=== PATIENT | male | born 1955 | race Caucasian/White ===

== ENCOUNTER 2024-06-17 12:06 | Outpatient (AMB) | payer MEDICARE, SELFPAY ==
--- NOTE | 2024-06-17 12:12 | MHC.PC.OV ---
Vital Signs 06/17/24 12:18 Height 5 ft 7 in Weight 189 lb 8 oz BMI 29.7 BP 120/66 Blood Pressure Location Rt brachial Position Sitting Respiration 16 Pulse 70 Pulse Source Pulse Oximeter Temp 97.9 F Temp Source Oral Pulse Oximetry (%) 97 Oxygen Delivery Method Room Air Intake Visit Reasons: OVERDUE ANNUAL PE- see comments Intake Note: annual exam Allergies No Known Allergies Allergy (Verified 06/17/24 12:13) Medication List - Last Reconciled 06/17/24 by Don Brown MD baclofen 10 mg PO BEDTIME 30 days docusate sodium 200 mg (2 x 100 mg) PO BID 30 days melatonin 3 - 6 mg (1 - 2 x 3 mg) PO BEDTIME PRN 90 days oxycodone 10 mg PO TID PRN pregabalin 150 mg PO BID sennosides (senna) 17.2 mg PO DAILY Tobacco use date assessed: 06/17/24 Fall risk assessment: 1 Fall in past year Last assessed Fall Risk: 06/17/24 Dental Screening Dental Screen Date: 06/17/24 Did you have a dental visit in the last 12 months?: Yes Did you have a dental problem in the last 6 months where you did not have access to dental care?: Yes Was dental information given to patient?: Patient has dentist HPI OVERDUE ANNUAL PE- see comments HPI Details 68 y/o male presents for a CPE with f/u labs and health maintenance. No recent labs to review. Pt notes he had been diagnosed with R eye retinal hemorrhage. States he has never had a colonoscopy. Notes some constipation. HPI Comments History of Present Illness Details Documentation assistance for Don Brown MD, was provided by Otto Matta,? Block Sorter on 06/17/2024 at 12:28 PM EST. I, Dr. Brown, have read, observed, and verified documentation. FORMERLY [facility], [facility] Medical History (Updated 06/17/24 @ 12:35 by Otto Matta) Failed spinal cord stimulator Social History (Updated 06/17/24 @ 12:17 by Abbie Payan [facility]) Housing: House Patient Tobacco Use Status: Never used Tobacco e-Cigarette/Vaping Use: Never Used Second Hand Smoke Exposure: No service: No Current occupational status: retired Current occupational exposures/hazards: No Cognitive needs: No Hearing needs: No Vision needs: No Questionnaire PHQ-9 Over the last 2 weeks, how often have you been bothered by any of the following problems? 1. Little interest or pleasure in doing things: more than half the days 2. Feeling down, depressed, or hopeless: several days 3. Trouble falling or staying asleep, or sleeping too much: more than half the days 4. Feeling tired or having little energy: more than half the days 5. Poor appetite or overeating: several days 6. Feeling bad about yourself - or that you are a failure or have let yourself or your family down: not at all 7. Trouble concentrating on things, such as reading the newspaper or watching television: not at all 8. Moving or speaking so slowly that other people could have noticed. Or the opposite - being so fidgety or restless that you have been moving around a lot more than usual: not at all 9. Thoughts that you would be better off or of hurting yourself in some way: not at all Total score: 8 Depression Screening Interpretation: Positive Depression Screening Done: Yes 45369 - PHQ-9 Billing: Yes Source: Developed by Drs. Juan Jenkins, Emely Smart, Tim Da Silva and colleagues, with an educational sheree from [employer]. Thrive Questionnaire Date Thrive assessed: 06/17/24 I am a: Patient What is your living situation today?: I have a steady place to live Within the past 12 months, did the food you bought not last and you didn't have the money to get more?: Never true Within the past 12 months, did you worry whether your food would run out before you got money to buy more?: Never true Do you have trouble paying for medicines?: No Do you have trouble getting transportation to medical appointments?: Yes Do you have trouble paying your heating and electricity bill?: No Do you have trouble taking care of your child, family member or friend?: No Do you have trouble with day-to-day activities such as bathing, preparing meals, shopping, managing finances, etc.?: Yes Are you currently unemployed and looking for a job?: No Are you interested in more education?: No Please select the resources that you would like help with: None Currently or been in a relationship where the following occur: No concerns reported THRIVE Score: 1 AUDIT C Alcohol Use Questionnaire (AUDIT-C) 1. How often do you have a drink containing alcohol?: Monthly or less 2. How many drinks containing alcohol do you have on a typical day when you are drinking?: 1 or 2 3. How often do you have six or more drinks on one occasion?: Never Total Score: 1 TAWANA-7 AMB Questionnaire TAWANA-7 Date TAWANA - 7 assessed: 06/17/24 Feeling nervous, anxious, or on edge: 0 = Not at all Not being able to stop or control worryin = Not at all Worrying too much about different things: 1 = Several days Trouble relaxin = Not at all Being so restless that it is hard to sit still: 0 = Not at all Becoming easily annoyed or irritable: 0 = Not at all Feeling afraid as if something awful might happen: 1 = Several days Total TAWANA-7 score (0-4 normal; 5-9 mild; 10-14 moderate; 15-21 severe): 2 Source: Developed by Drs. Juan Jenkins, Emely Smart, Tim Da Silva and colleagues, with an educational sheree from [employer]. TAWANA-7 Assessment Billing TAWANA-7 Assessment Tool: TAWANA-7 Assessment 79041 Review of Systems Const Denies chills, Denies fatigue, Denies fever(s), Denies headache(s) and Denies weakness Eyes Denies change in vision ENT Denies dizziness, Denies headache(s), Denies hearing loss, Denies nasal congestion, Denies sinus pain, Denies sinus pressure and Denies sore throat Card Denies chest pain, Denies lightheadedness, Denies dyspnea and Denies other (palpitations) Resp Denies cough, Denies dyspnea and Denies wheezing GI Denies abdominal pain, Denies melena, Denies hematochezia, Denies change in bowel habits, Reports constipation, Denies dyspepsia and Denies nausea Denies hematuria and Denies dysuria Musc Denies abnormal gait, Denies myalgias, Denies arthralgias, Denies numbness and Denies tingling Skin/Breast Denies rash, Denies unusual bruising and Denies wounds Neuro Denies abnormal gait, Denies dizziness, Denies headache(s), Denies memory loss, Denies numbness, Denies Sensory deficit (Neuro), Denies tingling and Denies weakness Psych Denies anxiety, Denies depression and Denies memory loss Endo Denies cold intolerance, Denies fatigue, Denies heat intolerance, Denies polydipsia and Denies polyuria Eddie/Lymph Denies easy bleeding and Denies easy bruising Aller/Immun Denies wheezing Physical exam (Primary Care) Vital Signs: Last Vital Signs Temp 97.9 F 06/17/24 12:18 Pulse 70 06/17/24 12:18 Resp 16 06/17/24 12:18 BP 120/66 06/17/24 12:18 Pulse Ox 97 06/17/24 12:18 Oxygen Delivery Method Room Air 06/17/24 12:18 BMI result Body Mass Index 29.7 Tobacco/Smoking Status: Tobacco use Status Tobacco use date assessed 11/23/21 06/17/24 12:15 Patient Tobacco Use Status Never used Tobacco 06/17/24 12:17 e-Cigarette/Vaping Use Never Used 06/17/24 12:17 PHQ-9: PHQ-9 Score PHQ-9: Total score 8 06/17/24 12:15 Depression Screening Interpretation: Positive Thrive Assessment: Date of Thrive Assessment Date Thrive assessed 08/14/22 06/17/24 12:15 Currently or been in a relationship where the following occur: No concerns reported Const General: no acute distress, well developed, alert and awake Nutritional Appearance: well nourished Orientation/consciousness: patient oriented x3 HENMT Head: Yes normocephalic and Yes atraumatic Ears: hearing grossly normal bilaterally and TM's normal bilaterally General nose exam: Normal external nose present and Normal nares present Mouth: Normal oral and palatal mucosa present and moist mucous membranes Teeth and gingiva: dentition normal Throat: Yes posterior oropharynx normal Eyes General: appearance normal, both eyes and all related structures Pupils: Equal, round and reactive pupils present and Pupil accommodation reflex normal EOM: EOMs intact bilaterally Neck Neck: Yes normal visual inspection, Yes no lymphadenopathy and Yes trachea midline Thyroid: Thyroid normal Carotids: no bruits Lymphatic: no lymphadenopathy noted Chest Chest palpation & inspection: normal inspection of the chest Resp Effort & Inspection: normal respiratory effort Auscultation: clear to auscultation bilaterally Cardio Rate: regular rate Rhythm: regular rhythm Heart sounds: S1 normal heart sound present, S2 normal heart sound present, no gallops, no murmurs and no rubs Bruits: no abdominal aortic bruits and no carotid bruits GI Palpation (GI): No Abdominal aortic bruit present, Soft to palpation, nontender, No hepatosplenomegaly present and No Rebound tenderness present Auscultation: normal bowel sounds General: Yes no CVA tenderness Back/Spine/Pelvis Back: no CVA tenderness Cervical Spine: cervical ROM normal and No Cervical spine tenderness Thoracic/Lumbar Spine: thoraco-lumbar ROM normal, No pain with thoraco-lumbar ROM, No thoracic spinal tenderness and No lumbar spinal tenderness Skin Lesions: no lesions Rashes: no rashes Trauma: no lacerations or abrasions Wounds: no wounds Nails: normal Neuro General: patient oriented x3 Cranial nerves: Yes Equal, round and reactive pupils present Cognition (Neuro): normal cognition Gait exam (Neuro): Normal gait present Motor exam (neuro): 5/5 motor strength present throughout Sensory Exam: No Sensory deficit (Neuro) Deep tendon reflexes (DTR's): Right patellar reflex intensity grade: 2+ and Left patellar reflex intensity grade: 2+ Extrem General: Yes normal to inspection and No edema Psych Appearance: grossly normal Affect: normal affect Attitude: cooperative Thought process: Normal thought process present Coding Level of Care Code Est Pt Prev Care >65y(55312) Diagnoses Adult general medical exam Z00.00 Retinal hemorrhage H35.60 Constipation K59.00 Night sweats R61 Back pain M54.9 Screening for colon cancer Z12.11 Screening for prostate cancer Z12.5 Additional Codes TAWANA-7 Assessment Billing - TAWANA-7 Assessment Tool: TAWANA-7 Assessment 07385 ([id number]) PHQ-9 - 88558 - PHQ-9 Billing: Yes ([id number]) Assessment & Plan Assessment & Plan (1) Adult general medical exam: Code(s): Z00.00 - Encounter for general adult medical examination without abnormal findings Category: Medical Plan: 68-year-old?male?presents?for?complete?physical?exam (2) Retinal hemorrhage: Code(s): H35.60 - Retinal hemorrhage, unspecified eye Category: Medical Plan: 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 Blood?pressure?is?fine.??Maintain?good?blood?pressure Check?carotid?duplex Check?lipids (3) Constipation: Code(s): K59.00 - Constipation, unspecified Category: Medical Plan: Hydrate?well Use?senna?as?needed (4) Night sweats: Code(s): R61 - Generalized hyperhidrosis Category: Medical Plan: Ongoing?night?sweats Check?labs?including?CBC,?T?spot?thyroid?hormone?levels.??Check?chest?x-ray (5) Back pain: Code(s): M54.9 - Dorsalgia, unspecified Category: Medical Plan: Follow-up?with?[facility]?as?recommended (6) Screening for colon cancer: Code(s): Z12.11 - Encounter for screening for malignant neoplasm of colon Category: Medical Plan: Patient?says?he?has?never?had?colonoscopy.??Referred?to?Gastroenterology (7) Screening for prostate cancer: Code(s): Z12.5 - Encounter for screening for malignant neoplasm of prostate Category: Medical Plan: Check?PSA Orders: Orders Complete Blood Count Auto Diff Today Z00.00 - Encounter for general adult medical examination without abnormal findings Microalbumin, Random (w Creat) Today I10 - Essential (primary) hypertension Prostate Specific Antigen Scr Today Z12.5 - Encounter for screening for malignant neoplasm of prostate UA and rflx microscopic Today Z00.00 - Encounter for general adult medical examination without abnormal findings XR chest 2V Today R61 - Generalized hyperhidrosis T Spot TB Today R61 - Generalized hyperhidrosis Comprehensive [place]. Panel Fast Today Z00.00 - Encounter for general adult medical examination without abnormal findings Lipid Panel Today Z00.00 - Encounter for general adult medical examination without abnormal findings TSH reflex Free T4 Today Z00.00 - Encounter for general adult medical examination without abnormal findings US carotid duplex BI Today H35.60 - Retinal hemorrhage, unspecified eye HIV Ab/Ag Today R61 - Generalized hyperhidrosis, Z11.3 - Encounter for screening for infections with a predominantly sexual mode of transmission Hepatitis B,C Profile Today R61 - Generalized hyperhidrosis, Z11.3 - Encounter for screening for infections with a predominantly sexual mode of transmission Lyme IgG/IgM w/reflex to WB Today M79.2 - Neuralgia and neuritis, unspecified Referrals Gastroenterology Referral Z12.11 - Encounter for screening for malignant neoplasm of colon Medications: Refilled melatonin 3 - 6 mg (1 - 2 x 3 mg) PO BEDTIME 90 days PRN 180 tabs 1RF insomnia
[2024-06-17 12:18] VITALS: BP 120/66; PULSE 70; RESP 16; TEMP 36.6; O2SAT 97; BMI 29.7
== END 2024-06-17 12:42 | disposition home or self-care (01) ==
PROVIDERS: PCP Family Medicine; Visit Provider Family Medicine
DX: Z00.00 Encounter for general adult medical examination without abnormal findings (principal); H35.60 Retinal hemorrhage, unspecified eye; K59.00 Constipation, unspecified; R61 Generalized hyperhidrosis; M54.9 Dorsalgia, unspecified; Z12.11 Encounter for screening for malignant neoplasm of colon; Z12.5 Encounter for screening for malignant neoplasm of prostate

== ENCOUNTER → 2024-06-17 12:06 | Outpatient (BNVA) | payer MEDICARE, SELFPAY | PROVIDERS: PCP Family Medicine; Visit Provider Family Medicine | DX: Z00.00 Encounter for general adult medical examination without abnormal findings (principal); H35.00 Unspecified background retinopathy; K59.00 Constipation, unspecified; R61 Generalized hyperhidrosis; M54.9 Dorsalgia, unspecified | CPT/HCPCS: 96127; 99397 ==

== ENCOUNTER 2024-07-03 14:53 | Outpatient (REF) | payer MEDICARE, SELFPAY ==
--- NOTE | ~2024-07-03 | US_ITS ---
EXAMINATION: US EXTRACRANIAL CAROTID DUPLEX, BILATERAL CLINICAL INFORMATION: Retinal hemorrhage. COMPARISON: None available. TECHNIQUE: Real-time ultrasound and Doppler techniques (integrating B-mode 2-D vascular images, Doppler spectral analysis and color-flow Doppler imaging) were utilized to interrogate the extracranial carotid arteries, the vertebral arteries and proximal subclavian arteries bilaterally. The degree of stenosis is determined by criteria similar to NASCET. FINDINGS: Right Side: 1. There is moderate atherosclerotic plaque seen in the bifurcation/proximal ICA region. The ICAs appears to be of small caliber and is occluded as described below 2. The common carotid artery PSV proximally is 91 cm/s and distally 72 cm/s. 3. The proximal, mid and distal internal carotid artery are occluded. 4. The proximal external carotid artery PSV is 80 cm/s. 5. The vertebral artery shows antegrade flow. 6. The subclavian artery waveforms are normal. Left Side: 1. There is mild atherosclerotic plaque seen in the bifurcation/proximal ICA region. 2. The common carotid artery PSV proximally is 108 cm/s and distally 79 cm/s. 3. The proximal internal carotid artery velocities are 77 cm/s systolic and 27 cm/s diastolic. 4. The proximal external carotid artery PSV is 100 cm/s. 5. The vertebral artery shows antegrade flow. 6. The subclavian artery waveforms are normal. US/US carotid duplex BI IMPRESSION: 1. RIGHT: The right internal carotid artery is occluded. 2. LEFT: Minimal, non-hemodynamically significant stenosis of the proximal left internal carotid artery corresponding to a 0-49% stenosis by velocity criteria. The patient's referring clinician, Don Brown, was contacted immediately after the exam who was going to contact the patient to go directly to the emergency room. Electronically signed by: Vimal Vallejo MD 07/09/2024 09:13 AM [facility] [place]
== END 2024-07-03 14:54 | disposition home or self-care (01) ==
LOC: HO.US 14:53
PROVIDERS: PCP Family Medicine; Visit Provider Family Medicine
DX: H35.61 Retinal hemorrhage, right eye (principal); I65.21 Occlusion and stenosis of right carotid artery
CPT/HCPCS: 93880

== ENCOUNTER 2024-07-03 16:15 | Emergency (ER) | payer MEDICARE, SELFPAY ==
--- NOTE | ~2024-07-03 | CT_ITS ---
EXAMINATION: CT ANGIOGRAM HEAD CT ANGIOGRAM NECK CLINICAL INFORMATION: Right ICA occlusion.] No hemorrhage. COMPARISON: Carotid ultrasound from 07/03/2024. TECHNIQUE: Initial noncontrast pattern worker imaging of the head and neck was performed. Noncontrast head CT was also performed. Test bolus sequences followed by intravenous administration 70 mL of Omnipaque 350. Helical imaging was performed in the axial plane from the aortic arch to the skull vertex. Delayed postcontrast imaging of the head was also performed. The data was processed at the neurodiagnostic technologist's workstation for generation of MIP sequences. Angled MIPs and volume rendered reformatted images were also generated at an offline 3D workstation. Stenoses are assessed in accordance with NASCET criteria unless otherwise indicated. This CT examination was performed using dose optimization techniques as appropriate, variously including the following: *Automated exposure control. *Adjustment of mA and/or kV according to patient size (this includes techniques or standardized protocols for targeted exams where dose is matched to indication/reason for exam; i.e. extremities or head). *Use of iterative reconstruction technique. DLP: 2167 mGy-cm FINDINGS: CT Head: There is no evidence of acute intracranial hemorrhage or edematous territorial infarction. Granados-white matter differentiation is preserved. A few foci of hypoattenuation in the periventricular and deep white matter are consistent with mild microangiopathy. The ventricles are normal in morphology and size. No evidence for obstructive hydrocephalus. No abnormal mass effect or midline shift. No extra-axial fluid collections. No pathologic intra-axial enhancement or regional oligemia. No acute soft tissue or osseous abnormalities. Mild mucosal thickening of the paranasal sinuses. The mastoid air cells and middle ear cavities are clear. Multifocal odontogenic enamel erosions and periapical lucencies. CT Neck: The thyroid gland and remaining cervical soft tissues are within normal limits. Congenital fusion of C2-C3. Straightening of the normal cervical lordosis. Instrumented posterior fusion of C6-T1 with bilateral lateral mass fusion of C6 and C7 and intrapedicular screws at T1. Laminectomy changes at C7-T1. Advanced degenerative disc disease at C4-C5 and from C6-T1. Facet and uncovertebral joint arthropathy leads to osseous encroachment on the neural foramina from C3-T1. CT Upper Chest: The visualized lung apices and upper mediastinum are within normal limits. Neck CTA: Aortic Arch: Normal contour and caliber with mild calcific atherosclerotic disease. Classic 3 vessel branching pattern of the aortic arch. Great Vessel Origins: No significant stenosis of the branch origins. Right Common Carotid Artery: No focal stenosis or occlusion. Cervical Right Internal Carotid Artery: Mixed fibrofatty and calcific atherosclerotic disease of the carotid bulb and proximal internal carotid artery subtotal occlusion at the origin. Faint threadlike opacification of the cervical, cavernous, and mastoid segments of the ICA. Left Common Carotid Artery: No focal stenosis or occlusion. Cervical Left Internal Carotid Artery: Mild calcific atherosclerotic disease of the carotid bulb and proximal internal carotid artery without flow-limiting stenosis. Cervical Right Vertebral Artery: Co-dominant. No focal stenosis or occlusion. Cervical Left Vertebral Artery: Co-dominant. No focal stenosis or occlusion. Brain CTA: Intracranial Internal Carotid Arteries: Calcific atherosclerotic disease of the intracranial internal carotid arteries. Reconstitution of the cavernous segment of the right ICA. There is moderate atherosclerotic stenosis of the paraophthalmic and supraclinoid segments of the right ICA. No additional occlusion or flow-limiting stenosis. Right Anterior Cerebral Artery: The A1 segment is mildly diminutive. Normal opacification of the distal GUILLERMO segments. Left Anterior Cerebral Artery: Normal A1 segment. Normal opacification of the distal GUILLERMO segments. Anterior Communicating Artery: Normal. Right Middle Cerebral Artery: Normal M1 segment of the MCA without focal stenosis or occlusion. Normal arborization of the distal segments. Left Middle Cerebral Artery: Normal M1 segment of the MCA without focal stenosis or occlusion. Normal arborization of the distal segments. Right Vertebral Artery: Normal V4 segment. Normal opacification of the proximal segments of the posterior inferior cerebellar artery. Left Vertebral Artery: Normal V4 segment. Normal opacification of the proximal segments of the posterior inferior cerebellar artery. Basilar Artery: Normal without focal stenosis or occlusion. Normal appearance of the proximal superior cerebellar arteries. Right Posterior Cerebral Artery: Normal P1 segment. Normal opacification of the distal CHROME POLISHER segments. Left Posterior Cerebral Artery: Normal P1 segment. Normal opacification of the distal CHROME POLISHER segments. Normal opacification of the superior sagittal, straight, transverse, and sigmoid sinuses. CT/CT angio head neck IMPRESSION: 1. No evidence of acute intracranial hemorrhage or edematous territorial infarction. 2. Subtotal occlusion of the origin of the right ICA. Reconstitution of the cavernous segment of the right ICA. Moderate atherosclerotic narrowings of the paraophthalmic and supraclinoid segments of the right ICA. 3. CTA of the head and neck without additional proximal occlusion or flow-limiting stenosis. 4. Moderate multilevel degenerative spondyloarthropathy of the cervical spine. Electronically signed by: Sarmad Flores DO 07/03/2024 08:05 PM [facility]
--- NOTE | 2024-07-03 16:19 | ED_ITS ---
HPI - General Adult General Chief complaint: General Medical Stated complaint: Sent by dr - abnormal test results? not clear Time Seen by Provider: 07/03/24 17:04 Source: patient Mode of arrival: ambulatory Limitations: no limitations History of Present Illness ED Provider: Zulay Hayes NP HPI narrative: Patient is a 68-year-old male with past medical history of constipation, chronic low back pain, recent diagnosed retinal hemorrhage from Ophthalmology who had an outpatient carotid ultrasound performed today. On review of clinical ultrasound she had appears as though carotid artery ultrasound is being obtained due to retinal hemorrhage, with impression of right ICA occlusion, I have spoke with the technicians and asked that a stat impression be provided from Radiology at this time, ultrasound contacted PCP office and he was advised to come to the emergency department. He denies any dizziness, lightheadedness, headache, acute vision changes, neck pain, neck stiffness, confusion, numbness or tingling of the extremities, weakness, slurred speech, facial drooping Related Data Home Medications ?Medication ?Instructions ?Recorded ?Confirmed oxycodone 10 mg tablet 10 mg PO TID PRN 11/23/21 06/17/24 pregabalin 150 mg capsule 150 mg PO BID 11/23/21 06/17/24 sennosides 8.6 mg tablet (senna) 17.2 mg PO DAILY 11/23/21 06/17/24 Previous Rx's ?Medication ?Instructions ?Recorded docusate sodium 100 mg capsule 200 mg (2 x 100 mg) PO BID 11/06/22 constipation 30 days #120 caps baclofen 10 mg tablet 10 mg PO BEDTIME 30 days #30 tabs 12/17/22 melatonin 3 mg tablet 3 - 6 mg (1 - 2 x 3 mg) PO BEDTIME 06/17/24 PRN insomnia 90 days #180 tabs aspirin 81 mg capsule 81 mg PO DAILY #30 caps 07/04/24 atorvastatin 40 mg tablet 40 mg PO DAILY #30 tabs 07/04/24 Allergies Allergy/AdvReac Type Severity Reaction Status Date / Time No Known Allergies Allergy Verified 07/03/24 16:22 Review of Systems 2 Review of Systems: Yes all other systems are reviewed and are negative PMFSH Past Medical History Attestation statement: The following information was validated with the patient. Source: old records reviewed Medical History Failed spinal cord stimulator Social History Social History (Updated 06/17/24 @ 12:17 by LAST Patino) Housing: House Patient Tobacco Use Status: Never used Tobacco Smoked in Last 30 Days: No e-Cigarette/Vaping Use: Never Used Second Hand Smoke Exposure: No Use of substances other than those prescribed or required for medical reasons: No Advance Directives: No Advance Directives Information Provided: No service: No Current occupational status: retired Current occupational exposures/hazards: No Cognitive needs: No Hearing needs: No Vision needs: No Physical Exam ED Vital Signs: Vital Signs - 24 hr 07/03/24 16:20 07/03/24 18:27 07/03/24 20:59 Temperature 97.4 F 97.7 F 98.5 F Pulse Rate 65 98 76 Respiratory Rate 20 16 18 Blood Pressure 151/68 H 128/68 147/77 H Pulse Oximetry 97 98 96 Oxygen Delivery Method Room Air Room Air 07/03/24 21:49 Temperature 98.5 F Pulse Rate 76 Respiratory Rate 18 Blood Pressure 147/77 H Pulse Oximetry 96 Oxygen Delivery Method Room Air BMI result Body Mass Index 26.6 Appearance: Alert.?Oriented to person, place and time. No acute distress.?Normal affect. Eyes: Pupils equal, round and reactive to light.? EOMI. No nystagmus. ENT: Pharynx normal.?? Neck: Normal inspection.? Neck supple.? Full range of motion. ? CVS: Heart sounds normal. Normal heart rate and rhythm.? Pulses normal.?? Respiratory: No respiratory distress.? Lung sounds clear to auscultation bilaterally?? Abdomen: Soft and non-tender. Normoactive bowel sounds. Skin: Skin warm and dry.? Normal skin color.? Extremities: No lower extremity edema.? No calf ttp? Neuro: No focal neurological deficit observed, CN II-XII intact, normal sensory observed, normal coordination observed. Level of consciousness: Appropriate for age. Motor strength: Proximal right upper extremity 5 /5, distal right upper extremity 5 /5, proximal left upper extremity 5 /5, distal left upper extremity 5 /5, right lower extremity 5 /5, left lower extremity 5 /5.? Speech: Normal, Gait: Normal, Icwulz-ao-[id number] test: Normal, Ezgu-ae-mzqm test: Normal. Course Course Course Narrative: This is a rapid medical exam performed by Bridger Ahmadi NP: Additional HPI, ROS, PE not included below will be deferred to primary provider. Patient is a 68-year-old male presenting to the ED stating that his PCP called and told him to come in to the ED but didn't say why. Patient just had a carotid doppler today prior to arrival. Prelim read shows occluded right ICA with retinal hemorrhage. Plan: labs Reevaluation(s) Reevaluation #1: CT angio of the head and neck is without evidence of acute intracranial hemorrhage or infarct, there is a subtotal occlusion of the origin of the right ICA, subtotal occlusion of the origin of the right ICA reconstitution of the cavernous segment with moderate atherosclerosic narrowing of paraophthalmic and supraclinoid segments, otherwise no additional proximal occlusion or stenosis. Patient may require antiplatelet therapy however have concern given the health communications specialist report to PCP of recent knee diagnosed retinal hemorrhage though he does not endorse symptoms that would be consistent with such, and/ or initiation of statin therapy. He follows with [facility]; [facility]. I discussed this case with my attending Dr. Cobos evaluated the patient as well and performed a funduscopic examination without concern for retinal hemorrhage at this time. He recommends initiating aspirin 81 mg orally daily and atorvastatin 40 mg orally daily and outpatient follow-up with vascular. Patient is agreeable with plan of care. Medications Administered Discontinued Medications Generic Name Dose Route Start Last Admin Trade Name Freq PRN Reason Stop Dose Admin Sodium Chloride 1,000 mls @ 999 mls/hr 07/03/24 17:30 07/03/24 20:10 Ns IV 07/03/24 18:30 Infused .Q1H1M LAURA Infusion Iohexol 100 ml 07/03/24 17:47 07/03/24 17:47 Iohexol 350 Mg/Ml 100 Ml Infus..Btl IV 07/03/24 17:48 70 ml ONCE ONE Administration Medical Decision Making Medical Decision Making MDM Narrative: Patient is a 68-year-old male with past medical history of constipation, chronic low back pain, recent diagnosed retinal hemorrhage from Ophthalmology who had an outpatient carotid ultrasound performed today with prelim impression of a right ICA occlusion. I spoke with radiologist to try and get a stat impression on this. On examination he has no focal neurological deficits, nothing to suggest any acute stroke at this time. Plan to obtain CT angio of the head and neck for further evaluation, determine if there is collateral flow to the MCA. Once results have been obtained I will consult with vascular, for determination as to whether admission for further evaluation/treatment and/or outpatient level of care is suggested with the initiation of aspirin and Plavix. Patient is agreeable with plan of care at this time. I reviewed serum labs obtained prior to my assumption of care, CBC is without leukocytosis anemia or thrombocytopenia. Coag studies are within normal range. No significant electrolyte derangement. No ELEUTERIO. Differential Diagnosis Differential Diagnoses: The differential diagnosis associated with the presentation includes (See narrative above) Admission/Observation Consideration of admission/observation: Escalation of care including admission/observation considered (See narrative above in course narrative for further detail) Lab Data MDM Lab Attestation statement: I reviewed the patient's lab results. (See narrative above) 07/03/24 16:53 07/03/24 16:53 Labs: Lab Results 07/03/24 Range/Units 16:53 WBC 6.4 (4.8-10.8) X10*3/uL RBC 5.10 (4.60-5.80) X10*6/uL Hgb 14.7 (14.0-18.0) g/dl Hct 44.8 (42.0-52.0) % MCV 87.8 (80.0-98.0) fL MCH 28.8 (27.0-33.0) pg MCHC 32.8 (31.0-36.0) g/dl RDW 13.2 (11.0-16.0) % Plt Count 240 (160-400) X10*3/uL MPV 9.9 (9.4-12.4) fL Immature Gran % (Auto) 0.2 (0.0-0.4) % Neut % (Auto) 60.5 (45-73) % Lymph % (Auto) 27.0 (20-40) % [place] % (Auto) 9.5 (2-11) % Eos % (Auto) 2.5 (0-4) % Baso % (Auto) 0.3 (0-2) % Lymph # (Auto) 1.7 (1.2-4.9) X10*3/uL [place] # (Auto) 0.6 (0.1-1.2) X10*3/uL Eos # (Auto) 0.2 (0.0-0.4) X10*3/uL Baso # (Auto) 0.0 (0.0-0.2) X10*3/uL Abs Immat Gran (auto) 0.01 (0.00-0.03) X10*3/uL Absolute Neuts (auto) 3.9 (2.0-8.3) x10*3/uL Absolute Nucleated RBC 0.000 (0.0-0.012) X10*3/uL Nucleated RBC % (auto) 0.0 (0.0-0.2) /100WBC PT 11.6 (10.9-12.4) SEC INR 1.0 (0.9-1.1) Sodium 143 (135-145) mmol/L Potassium 3.9 (3.3-5.1) mmol/L Chloride 110 H (96-108) mmol/L Carbon Dioxide 25 (22-29) mmol/L Anion Gap 12 (12-20) BUN 17 H (9-16) mg/dL Creatinine 0.88 (0.5-1.4) mg/dL Estim Creat Clear Calc 76.1 Estimated GFR > 60 Random Glucose 126 H (60-115) mg/dL Calcium 9.2 (8.4-10.2) mg/dL Total Bilirubin 0.4 (0.0-1.0) mg/dL AST 22 (5-37) U/L ALT 16 (0-40) U/L Alkaline Phosphatase 62 (39-117) U/L Total Protein 7.5 (6.5-8.0) g/dL Albumin 4.4 (3.5-5.0) g/dL Radiology Impression Discussion of test interpretation with radiology: I have reviewed the radiologist's reading. Radiologist Impression: CT/CT angio head neck IMPRESSION: 1. No evidence of acute intracranial hemorrhage or edematous territorial infarction. 2. Subtotal occlusion of the origin of the right ICA. Reconstitution of the cavernous segment of the right ICA. Moderate atherosclerotic narrowings of the paraophthalmic and supraclinoid segments of the right ICA. 3. CTA of the head and neck without additional proximal occlusion or flow-limiting stenosis. 4. Moderate multilevel degenerative spondyloarthropathy of the cervical spine. External Record Review External record reviewed: Outpatient record Chronic Conditions Patient?s care impacted by: Other (See narrative above) Critical Care Time Critical Care Time Critical Care Time: Yes Total Critical Care Time: 35 Attestation: I personally attest to this critical care time spent taking care of the patient exclusive of all other billable procedures was approximately _ minutes including initial evaluation of patient, ordering tests, medical consultation, documentation, re-evaluation. Discharge Plan Discharge Clinical Impression: ICAO (internal carotid artery occlusion) Patient Disposition: Home, Self-Care Instructions: Carotid Artery Disease (DC) Additional Instructions: To new prescriptions have been sent to your pharmacy low-dose aspirin 81 mg daily and a cholesterol medication atorvastatin 40 mg daily. Please contact the vascular surgeon's office Saturday morning to arrange for follow-up visit. Please return to emergency department any new or worsening symptoms or concerns. Prescriptions: New aspirin 81 mg capsule 81 mg PO DAILY Qty: 30 0RF atorvastatin 40 mg tablet 40 mg PO DAILY Qty: 30 0RF No Action docusate sodium 100 mg capsule 200 mg PO BID 30 Days Qty: 120 2RF baclofen 10 mg tablet 10 mg PO BEDTIME 30 Days Qty: 30 0RF pregabalin 150 mg capsule 150 mg PO BID oxycodone 10 mg tablet 10 mg PO TID PRN sennosides [senna] 8.6 mg tablet 17.2 mg PO DAILY melatonin 3 mg tablet 3 - 6 mg PO BEDTIME PRN (Reason: insomnia) 90 Days Qty: 180 1RF Referrals: [facility] Group] (right ICA subtotal occlusion) Don Brown MD [Primary Care Provider] - Interventions: ED Discharge Assessment Last Done: 07/03/24 21:49 Discharge Date/Time: 07/03/24 21:50 Print Language: Beninese
[2024-07-03 16:20] VITALS: BP 151/68; PULSE 65; RESP 20; TEMP 36.3; O2SAT 97; BMI 26.6
[2024-07-03 16:57] LABS: MANUAL DIFF FLAG NO
[2024-07-03 17:03] LABS: Basophils Percent Auto 0.3 % (0-2); Eosinophils Absolute Auto 0.2 X10*3/uL (0.0-0.4); Eosinophils Percent Auto 2.5 % (0-4); Hematocrit 44.8 % (42.0-52.0); Hemoglobin 14.7 g/dl (14.0-18.0); Imm Gran Abs Auto 0.01 X10*3/uL (0.00-0.03); Imm Gran Pct Auto 0.2 % (0.0-0.4); Lymphocytes Absolute Auto 1.7 X10*3/uL (1.2-4.9); Mean Corpuscular HGB Conc 32.8 g/dl (31.0-36.0); Mean Corpuscular Hemoglobin 28.8 pg (27.0-33.0); Mean Corpuscular Volume 87.8 fL (80.0-98.0); Mean Platelet Volume 9.9 fL (9.4-12.4); Monocytes Absolute Auto 0.6 X10*3/uL (0.1-1.2); Monocytes Percent Auto 9.5 % (2-11); Neutrophils Absolute Auto 3.9 x10*3/uL (2.0-8.3); Neutrophils Percent Auto 60.5 % (45-73); Platelet Count 240 X10*3/uL (160-400); Red Cell Distribution Width 13.2 % (11.0-16.0); White Blood Count 6.4 X10*3/uL (4.8-10.8)
[2024-07-03 17:08] LABS: Prothrombin Time 11.6 SEC (10.9-12.4)
[2024-07-03 17:14] LABS: Alanine Aminotransferase 16 U/L (0-40); Albumin Level 4.4 g/dL (3.5-5.0); Alkaline Phosphatase 62 U/L (39-117); Anion Gap 12 (12-20); Aspartate Amino Transferase 22 U/L (5-37); Bilirubin Total 0.4 mg/dL (0.0-1.0); Blood Urea Nitrogen 17 mg/dL (9-16); Calcium 9.2 mg/dL (8.4-10.2); Carbon Dioxide 25 mmol/L (22-29); Chloride 110 mmol/L (96-108); Creatinine Clr Calc Pharmacy 76.1; Estimated Glomerular Filt Rate > 60; Glucose Random 126 mg/dL (60-115); Potassium 3.9 mmol/L (3.3-5.1); Sodium 143 mmol/L (135-145); Total Protein 7.5 g/dL (6.5-8.0)
[2024-07-03] MEDS: iohexoL 350 MG/ML 100 ML INFUS..BTL IV (17:47)
[2024-07-03] MEDS: 0.9 % Sodium Chloride 1,000 ML 999 ML IV (18:16)
[2024-07-03 18:27] VITALS: BP 128/68; PULSE 98; RESP 16; TEMP 36.5; O2SAT 98
[2024-07-03 20:59] VITALS: BP 147/77; PULSE 76; RESP 18; TEMP 36.9; O2SAT 96
[2024-07-03 21:49] VITALS: BP 147/77; PULSE 76; RESP 18; TEMP 36.9; O2SAT 96
== END 2024-07-03 21:50 | disposition home or self-care (01) ==
PROVIDERS: Registered Nurse Emergency; Emergency Provider Emergency Medicine; PCP Family Medicine
DX: I65.21 Occlusion and stenosis of right carotid artery (principal); R93.0 Abnormal findings on diagnostic imaging of skull and head, not elsewhere classified; G89.29 Other chronic pain; M54.50 Low back pain, unspecified; Z79.899 Other long term (current) drug therapy
CPT/HCPCS: 36415; 70496; 70498; 80053; 85025; 85610; 96360; 96361; 99284; Q9967

== ENCOUNTER 2024-07-09 13:31 | Outpatient (AMB) | payer MEDICARE, SELFPAY ==
--- NOTE | 2024-07-09 13:22 | MHC.PC.OV ---
Intake Visit Reasons: f/u CPE-labs via telemedicine Intake Note: radiology f/u Allergies No Known Allergies Allergy (Verified 07/09/24 13:23) Tobacco use date assessed: 06/17/24 Dental Screening Dental Screen Date: 06/17/24 HPI f/u CPE-labs via telemedicine HPI Details 68 y/o male presents to f/u labs via telemedicine. No recent labs to review that I had ordered. Recent ED visit for ICAO. They prescribed aspirin 81mg and artovastaitn 40mg daily. Per ED note: CT angio of the head and neck is without evidence of acute intracranial hemorrhage or infarct, there is a subtotal occlusion of the origin of the right ICA, subtotal occlusion of the origin of the right ICA reconstitution of the cavernous segment with moderate atherosclerosic narrowing of paraophthalmic and supraclinoid segments, otherwise no additional proximal occlusion or stenosis. [facility] Medical History Failed spinal cord stimulator Social History (Updated 06/17/24 @ 12:17 by Abbie Payan [facility]) Housing: House Patient Tobacco Use Status: Never used Tobacco e-Cigarette/Vaping Use: Never Used Second Hand Smoke Exposure: No service: No Current occupational status: retired Current occupational exposures/hazards: No Cognitive needs: No Hearing needs: No Vision needs: No Questionnaire Thrive Questionnaire Date Thrive assessed: 06/17/24 TAWANA-7 AMB Questionnaire TAWANA-7 Date TAWANA - 7 assessed: 06/17/24 Source: Developed by Drs. Juan Jenkins, Emely Smart, Tim Da Silva and colleagues, with an educational sheree from [employer] Physical exam (Primary Care) Tobacco/Smoking Status: Tobacco use Status Tobacco use date assessed 06/17/24 07/09/24 13:24 Patient Tobacco Use Status Never used Tobacco 07/09/24 13:24 e-Cigarette/Vaping Use Never Used 07/09/24 13:24 Thrive Assessment: Date of Thrive Assessment Date Thrive assessed 06/17/24 07/09/24 13:24 Telehealth Telehealth Telehealth Platform: Telephone Location of provider rendering services: practice address Location of patient: address on file Patient Identification confirmed using: Name, : Yes Telehealth method: voice only Patient verbally consented to treatment: Yes Patient verbally consented to billing insurance company: Yes Patient informed of any privacy concerns related to visit: Yes Minutes spent on Phone/Video with Pt.: 7 Coding Level of Care Code Tele Est Pt Level 2 (11076) Diagnoses ICAO (internal carotid artery occlusion) I65.29 Assessment & Plan Assessment & Plan (1) ICAO (internal carotid artery occlusion): Code(s): I65.29 - Occlusion and stenosis of unspecified carotid artery Category: Medical Plan: Right?internal?carotid?artery?occlusion?and?retinal?hemorrhage Emergency?department?started?him?on?aspirin?and?atorvastatin?and?advised?he?hold?the?vascular?surgeon?on?Saturday.??Patient?did?realize?he?call?and?I?do?not?see?that?they?made?a?referral. I?have?made?referral?today. Patient?is?taking?aspirin?and?atorvastatin?as?prescribed?and?I?advised?he Orders: Referrals Vascular Surgery Referral H35.60 - Retinal hemorrhage, unspecified eye, I65.29 - Occlusion and stenosis of unspecified carotid artery
== END 2024-07-09 17:05 | disposition home or self-care (01) ==
LOC: HO.HMCFM 13:31
PROVIDERS: PCP Family Medicine; Visit Provider Family Medicine
DX: I65.29 Occlusion and stenosis of unspecified carotid artery (principal)

== ENCOUNTER 2025-06-04 15:22 | Outpatient (AMB) | payer MEDICARE, SELFPAY ==
--- NOTE | 2025-06-04 15:15 | A.OFFPC_ITS ---
Vital Signs 06/04/25 15:36 Height 5 ft 7 in Weight 174 lb 2 oz BMI 27.3 BP 120/68 Blood Pressure Location Lt brachial Position Sitting Respiration 14 Pulse 97 Pulse Source Pulse Oximeter Temp 98.4 F Temp Source Oral Pulse Oximetry (%) 97 Oxygen Delivery Method Room Air Intake Visit Reasons: Blurry vision last 3 days when not wearing glasses Intake Note: patient is scheduled to discuss blurry vision without glasses Card Writer Hand Required: No Allergies No Known Allergies Allergy (Verified 06/04/25 15:34) Medication List - Last Reconciled 06/04/25 by Don Brown MD aspirin 81 mg PO DAILY atorvastatin 40 mg PO DAILY baclofen 10 mg PO BEDTIME 30 days docusate sodium 200 mg (2 x 100 mg) PO BID 30 days melatonin 3 - 6 mg (1 - 2 x 3 mg) PO BEDTIME PRN 90 days oxycodone 10 mg PO TID PRN pregabalin 150 mg PO BID sennosides (senna) 17.2 mg PO DAILY Tobacco use date assessed: 06/17/24 Dental Screening Dental Screen Date: 06/17/24 HPI Blurry vision last 3 days when not wearing glasses HPI Details 69 y/o male presents today with complain ts of vision changes. Notes vision changes less than a week ago. Hx of retinal hemorrhage, internal carotid artery occlusion Notes he had recently seen his eyeglass frames polisher about a couple months ago. [facility] Medical History Failed spinal cord stimulator Social History (Updated 06/17/24 @ 12:17 by Abbie Payan [facility]) Housing: House Patient Tobacco Use Status: Never used Tobacco e-Cigarette/Vaping Use: Never Used Second Hand Smoke Exposure: No service: No Current occupational status: retired Current occupational exposures/hazards: No Cognitive needs: No Hearing needs: No Vision needs: No Questionnaire Thrive Questionnaire Date Thrive assessed: 06/17/24 TAWANA-7 AMB Questionnaire TAWANA-7 Date TAWANA - 7 assessed: 06/17/24 Source: Developed by Drs. Juan Jenkins, Emely Smart, Tim Da Silva and colleagues, with an educational sheree from [employer]. Review of Systems Const Denies chills, Denies fatigue, Denies fever(s), Denies headache(s) and Denies weakness ENT Denies dizziness and Denies headache(s) Card Denies dyspnea Resp Denies cough, Denies dyspnea, Denies wheezing and Denies other (shortness of breath) Musc Denies numbness and Denies tingling Neuro Denies dizziness, Denies headache(s), Denies numbness, Denies tingling and Denies weakness Psych Denies anxiety and Denies depression Endo Denies fatigue Aller/Immun Denies wheezing Physical exam (Primary Care) Vital Signs: Last Vital Signs Temp 98.4 F 06/04/25 15:36 Pulse 97 06/04/25 15:36 Resp 14 06/04/25 15:36 BP 120/68 06/04/25 15:36 Pulse Ox 97 06/04/25 15:36 Oxygen Delivery Method Room Air 06/04/25 15:36 BMI result Body Mass Index 27.3 Tobacco/Smoking Status: Tobacco use Status Tobacco use date assessed 06/17/24 06/04/25 15:15 Patient Tobacco Use Status Never used Tobacco 06/04/25 15:15 e-Cigarette/Vaping Use Never Used 06/04/25 15:15 Thrive Assessment: Date of Thrive Assessment Date Thrive assessed 06/17/24 06/04/25 15:15 Const General: well developed; No acute distress Nutritional Appearance: well nourished Orientation/consciousness: patient oriented x3 HENMT Head: Yes normocephalic and Yes atraumatic Eyes General: appearance normal, both eyes and all related structures Pupils: Equal, round and reactive pupils present EOM: EOMs intact bilaterally Resp Effort & Inspection: normal respiratory effort Neuro General: patient oriented x3 and gait normal Cranial nerves: Yes Equal, round and reactive pupils present Psych Affect: normal affect Coding Level of Care Code Est Pt Level 3 (12662) Diagnoses Vision changes H53.9 Hyperlipidemia E78.5 ICAO (internal carotid artery occlusion) I65.29 Assessment & Plan Assessment & Plan (1) Vision changes: Code(s): H53.9 - Unspecified visual disturbance Category: Medical (2) Hyperlipidemia: Code(s): E78.5 - Hyperlipidemia, unspecified Category: Medical (3) ICAO (internal carotid artery occlusion): Code(s): I65.29 - Occlusion and stenosis of unspecified carotid artery Category: Medical Plan 69-year-old male with history of internal carotid artery occlusion and retinal hemorrhage notes acute change in vision Acute increase in blurriness which corrects with glasses. Patient called his band machine operator who was aware of his prior history and recommended follow-up here 1st. Given exam findings, this appears to be an issue with blurriness in visual acuity that corrects with his glasses and not a retinal, optic nerve or central nervous system issue at this time. Neuro exam is normal. Referred back to his band machine operator. ---- However, patient has history of internal carotid artery occlusion and had been referred to vascular surgery urgently back in June 2024. Patient did not follow through with appointment Had also started patient on atorvastatin and aspirin but he has not started these. As above, neuro exam today is normal Start atorvastatin and aspirin Referred back to vascular surgery and I strongly encouraged patient to follow through Follow-up with your band machine operator as above. Orders: Orders PT Evaluation and Treatment Today M54.50 - Low back pain, unspecified Referrals Vascular Surgery Referral H35.60 - Retinal hemorrhage, unspecified eye, I65.29 - Occlusion and stenosis of unspecified carotid artery Ophthalmology Referral H53.8 - Other visual disturbances Medications: New multivitamin 1 tab PO QAM 90 tabs 3RF 90 days Changed From atorvastatin 40 mg PO DAILY 30 tabs 0RF To atorvastatin 40 mg PO DAILY 90 tabs 3RF 90 days From aspirin 81 mg PO DAILY 30 caps 0RF To aspirin 81 mg PO DAILY 90 caps 3RF 90 days
--- OUTSIDE RECORDS SUMMARY | 2025-06-04 15:29 | XMS_ITS | Clinical Summary ---
Author Organization [facility] Address [address] [address] Phone Care Team Providers Care Mine Wedge Sawyer Name Role Phone Don Brown MD Primary Care Provider Allergies No known active allergies Medications oxyCODONE HCl 10 mg Tab Take 1 tablet (10 mg total) by mouth every 3 (three) hours as needed (For moderate pain.). Pt. may request partial fill 50 tablet 04/28/2018 Active LYRICA 75 mg capsule TAKE 2 CAPSULES BY MOUTH TWICE A DAY 0 01/20/2019 Active melatonin 3 mg Tab TAKE 1 OR 2 TABLETS BY MOUTH EVERY EVENING NEEDED FOR SLEEP 0 01/14/2019 Active baclofen (LIORESAL) 10 MG tablet TAKE 2 TABLETS BY MOUTH 3 TIMES A DAY 0 01/13/2019 Active docusate sodium (COLACE) 100 MG capsule Take 100 mg by mouth 2 (two) times a day. Active Active Problems Problem Noted Date Diagnosed Date Cervical myelopathy 04/23/2018 Assessment & Plan (04/25/2018 7:34 PM EDT): Patient presented for admission for decompression of cervical stenosis. This is secondary to an accident after a tree branch falling onto his head. As noted by MRI showing grade 1 anterolisthesis of C7 relative to both C6 and T1. Also high- grade central stenosis with abnormal signal in the cord consistent with myopathy. CT of the cervical spine performed in the ED, no clear evidence of cervical fractures. Patient underwent decompression of C6-7 and C7-T1 along with fusion. Procedure was uncomplicated performed by Dr. Handley. Case was discussed with Dr. Handley today, GÓMEZ drain continue, but steroid discontinue at this time. There is no clear medical need for medicine service to follow at this time. Patient will be solely on orthopedic service. -Discontinue Decadron 4 mg IV every 6 hours. -Morphine/oxycodone as needed pain -Continue recommendations per Dr. Handley. Social History Tobacco Use Types Packs/Day Years Used Date Smoking Tobacco: Never Smokeless Tobacco: Never Alcohol Use Standard Drinks/Week Comments No 0 (1 standard drink = 0.6 oz pur e alcohol) Education Answer Date Recorded Are you interested in more education? Not on indu e 11/09/2022 Are you concerned about learning? Not on file 11/09/2022 No 11/09/2022 No 11/09/2022 Digital Access Answer Date Recorded No 12/08/2022 No 12/08/2022 No 12/08/2022 Reliable internet access at home? Not on file 12/08/2022 Device with a working camera? Not on file Sex and Gender Information Value Date Recorded Sex Assigned at Male 03/05/2018 12:50 PM EDT Legal Sex Male 9:53 PM EDT Gender Identity Male 03/05/2018 12:50 PM EDT Sexual Orientation Choose not to disclose 2017 12:50 PM EDT Last Filed Vital Signs Vital Sign Reading Time Taken Comments Blood Pressure 111/76 04/28/2018 8:15 AM EDT Pulse 76 04/28/2018 8:15 AM EDT Temperature 37 C (98.6 F) 04/28/2018 8:15 AM EDT Respiratory Rate 16 04/28/2018 8:15 AM EDT Oxygen Saturation 98% 04/28/2018 8:15 AM EDT Inhaled Oxygen Concentration - - Weight 74.8 kg (165 lb) 10/15/2022 2:54 PM EDT Height 170.2 cm (5' 7 ) 10/15/2022 2:54 PM EDT Body Mass Index 25.84 10/15/2022 2:54 PM EDT Plan of Treatment Health Maintenance Due Date Last Done Comments Adult Td,Tdap Booster 1956 LIPID PANEL 1956 DEPRESSION SCREENING 1968 HEPATITIS C SCREENING 1974 COLOGUARD 2001 COLONOSCOPY 2001 COLORECTAL CANCER SCREENING 2001 FIT TEST 2001 FOBT 2001 SIGMOIDOSCOPY 2001 VIRTUAL COLONOSCOPY 2001 PNEUMOCOCCAL VACCINES (50+ years) (1 of 1 - PCV) 2006 ZOSTER VACCINES (1 of 2) 2006 SCREENING FOR DIABETES 06/16/2021 06/16/2018 INFLUENZA VACCINE (#1) 2025 COVID-19 VACCINE (3 - 2024-2 6 season) 2025 02/27/2021, 02/06/2021 RSV VACCINE (1 - 1-dose 75+ series) 09/29/2031 SMOKING STATUS SCREENING (On ce After 26 Yrs) Completed 04/23/2018 HEPATITIS A VACCINES Aged Out No long er eligible based on patient's age to complete this topic HIB VACCINES Aged Out No longer eligi ble based on patient's age to complete this topic MENINGOCOCCAL VACCINES (ACWY) Aged Out No longer eligible based on patient's age to complete this topic MENINGOCOCCAL VACCINES (B) Aged Out N o longer eligible based on patient's age to complete this topic Medical Devices Implanted Type Area Museum Host/Hostess Device Identifier Shelf Expiration Date Model / Serial / Lot Screw Mark 3.5mm Bone Spine Posterior Cervical Ti Oasys Susan Ii Ea - [id number] Implanted:Qty : 6 on 04/24/2018 by Quinton Handley MD at [facility] NODATA Spine Cervical TAVARES SPINE [id number] / / Screw Bone 3.5x12mm Posterior Cervical Oasys Polyaxial Biased Angle Ea - [id number] Implanted:Qty : 2 on 04/24/2018 by Quinton Handley MD at [facility] Spine Cervical [employer]ES [employer]INE [id number] / / Screw Bone 3.5x24mm Posterior Cervical Oasys Polyaxial Biased Angle Ea - [id number] Implanted:Qty : 2 on 04/24/2018 by Quinton Handley MD at [facility] Spine Cervical [employer]AVARES SPINE [id number] / / Screw Bone 3.5x10mm Posterior Cervical Oasys Polyaxial Biased Angle Ea - [id number] Implanted:Qty : 2 on 04/24/2018 by Quinton Handley MD at [facility] Spine Cervical [employer]ES SPINE [id number] / / Jamal Bone 3.5x40mm Spine Posterior Cervical Oasys Ti Ea - [id number] Implanted:Qty : 2 on 04/24/2018 by Quinton Handley MD at [facility] Spine Cervical TAVARES SPINE [id number] / / Insurance [facility] MEDICARE PART A & B [facility] MEDICARE REPLACEMENT [place] B [facility] MEDIC[facility] RE[place] B [facility]IC[facility] B [facility] MEDICARE REPLACEMENT [facility] MEDICARE PART A & B [facility] MEDICARE REPLACEMENT [facility] MEDICARE PART A & B [facility] MEDICARE REPLACEMENT Advance Directives For more information, please contact: [phone] (9AM - 5PM Maryam/[facility], Saturday-Saturday) * Full Code (Confirmed) (Latest Code Status on File) Date Activated Date Inactivated Comments 04/23/2018 8:36 PM 04/28/2018 4:10 PM Question Answer Comments Code Status Confirmed With: Patient Healthcare Agents on File Name Relationship Healthcare Agent Relationshi p Communication Davina Kosior Relative .Primary Health Care Agent (Proxy form on file) Na Kosier Relative Alternate Health care Agent (Proxy form on file) Care Teams Mine Wedge Sawyer Relationship Specialty Start Date End Date Don Brown MD PCP - General Family Medicine 10/20/22 Additional Source Comments The information contained in this document represents components of the legal health record. It is not the complete legal health record.[facility]
--- OUTSIDE RECORDS SUMMARY | 2025-06-04 15:29 | XMS_ITS | Encounter Summary ---
Author Organization [facility] Address [address] [address] Phone Care Team Providers Care Predatory Game Hunter Name Role Phone Don Brown MD Primary Care Provider Encounter Details Date Type Department Care Team (Latest Contact Info) Description 12/19/2022 Transcribe Orders Virtual Department [address] [place] [address] Chapito Quinn, DO [address] [place] [address] [email or web address] Right shoulder pain, unspecified chronicity (Primary Dx) Social History Tobacco Use Types Packs/Day Years [...] not to disclose 2017 12:50 PM EDT documented as of this encounter Plan of Treatment Not on file documented as of this encounter Visit Diagnoses Diagnosis Right shoulder pain, unspecified chronicity- Primary documented in this encounter Care Teams Predatory Game Hunter Relationship Specialty Start Date End Date Don Brown MD PCP - General Family Medicine 10/20/22 documented as of this encounter Additional Source Comments The information contained in this document represents components of the legal health record. It is not the complete legal health record.[facility]
--- OUTSIDE RECORDS SUMMARY | 2025-06-04 15:29 | XMS_ITS | Encounter Summary ---
Author Organization [facility] Address [address] [place] [address] Phone Care Team Providers Care Supplies Packer Name Role Phone Belle Vega NP Primary Care Provider [phone] Nory Jones MD Unavailable [phone] Alexi Nowak MD Primary Care Provider [phone] Alexi Nowak MD Unavailable Don Brown MD Primary Care Provider Encounter Details Date Type Department Care Team (Latest Contact Info) Description 05/26/2018 Transcribe Orders [facility] Specimen Processing [address] [place] [address] Manuel Mercer MD 38 [facility] 204, [address] [place] [address] [email or web address] Intervertebral cervical disc disorder with myelopathy, cervical region (Primary Dx); Disease of spinal cord; Gastroesophageal reflux disease without esophagitis Social History Tobacco Use Types Packs/Day Years Used Date Smoking Tobacco: Never Smokeless Tobacco: Never Alcohol Use Standard Drinks/Week Comments No 0 (1 standard drink = 0.6 oz pur e alcohol) Sex and Gender Information Value Date Recorded Sex Assigned at Male 03/05/2018 12:50 PM EDT Legal Sex Male 9:53 PM EDT Gender Identity Male 03/05/2018 12:50 PM EDT Sexual Orientation Choose not to disclose 2017 12:50 PM EDT documented as of this encounter Plan of Treatment Not on file documented as of this encounter Results * (ABNORMAL) CBC (05/26/2018 5:30 AM EST) WBC 6.25 3.40 - 11.20 K/uL [facility] RBC 4.47(L) 4.50 - 5.50 M/uL [facility] HGB 12.7(L) 13.0 - 17.0 g/dL [facility] HCT 39.4(L) 40.0 - 51.0 % [facility] PLT 241 130 - 400 K/uL [facility] MCV 88.1 79.0 - 98.0 fL [facility] MCH 28.4 27.0 - 34.8 pg [facility] MCHC 32.2 31.5 - 36.0 g/dL [facility] RDW 12.8 10.8 - 14.6 % [facility] MPV 10.0 9.4 - 12.4 fl [facility] NRBC 0.00 0.00 /100 WBCs [facility] ABSOLUTE NRBC 0.00 0.00 K/uL [facility] Blood 05/26/2018 5:30 AM EST 05/26/2018 8:35 AM EST us Manuel Mercer MD LAB BLOOD BKR ORDERABLES Final R esult Performing Organization Address City/State/[facility] Co de Phone Number [address] [address] * (ABNORMAL) Comprehensive metabolic panel (05/26/2018 5:30 AM EST) SODIUM 141 133 - 146 mmol/L [facility] POTASSIUM 4.3 3.3 - 5.1 mmol/L [facility] CHLORIDE 100 96 - 108 mmol/L [facility] CO2 27 21 - 35 mmol/L [facility] BUN 16 6 - 19 mg/dL [facility] CREATININE 0.70 0.5 - 1.5 mg/dL [facility] GLUCOSE 94 70 - 99 mg/dL [facility] ALBUMIN 3.8(L) 3.9 - 4.8 g/dL [facility] TOTAL PROTEIN 5.9(L) 6.5 - 8.0 g/dL [facility] CALCIUM 9.4 8.4 - 10.3 mg/dL [facility] ALKALINE PHOSPHATASE 57 39 - 117 U/L [facility] TOTAL BILIRUBIN 0.3 0.0 - 1.2 mg/dL [facility] AST 11 0 - 37 U/L [facility] ALT 9 0 - 40 U/L [facility] GLOBULIN 2.1 1 - 4.8 g/dL [facility] EGFR 102 >59 mL/min/1.7 3m2 [facility] Comment:If patient is black, multiply result by 1.159. Estimated glomerular filtration rate calculated using the CKD-EPI equation. ANION GAP 18 10 - 20 mmol/L [facility] Blood 05/26/2018 5:30 AM EST 05/26/2018 8:35 AM EST us Manuel Mercer MD LAB BLOOD BKR ORDERABLES Final R esult Performing Organization Address City/State/[facility] Co de Phone Number [facility] [address] [place] [address] documented in this encounter Visit Diagnoses Diagnosis Intervertebral cervical disc disorder with myelopathy, cervical region- Primary Disease of spinal cord Unspecified disease of spinal cord Gastroesophageal reflux disease without esophagitis Esophageal reflux documented in this encounter Care Teams Supplies Packer Relationship Specialty Start Date End Date Belle Vega NP PCP - General Family Medicine 03/05/18 12/17/18 Alexi Nowak MD 230 [facility] [address] JANELL Jones [phone] [email or web address] PCP - General Family Medicine 12/18/18 10/19/22 oDn Brown MD 230 [facility] [address] JANELL [place] [phone] PCP - General Family Medicine 10/20/22 Nory Jones MD [address] [place] [address] [email or web address] Insurance Assigned Provider 06/15/1808/16/18 Alexi Nowak MD [address] [place] [address] [address] JANELL Jones [phone] [email or web address] Insurance Assigned Provider 04/25/19 documented as of this encounter Additional Source Comments The information contained in this document represents components of the legal health record. It is not the complete legal health record.[facility]
--- OUTSIDE RECORDS SUMMARY | 2025-06-04 15:29 | XMS_ITS | Encounter Summary ---
Author Organization [facility] Address [address] [place] [address] Phone Care Team Providers Care Engine Lathe Set Up Operator Name Role Phone Alexi Nowak MD Primary Care Provider [phone] Don Brown MD Primary Care Provider Encounter Details Date Type Department Care Team (Late st Contact Info) Description 09/27/2022 Procedure Pass [facility], [address] [address] Social History Tobacco Use Types Packs/Day Years [...] documented as of this encounter Visit Diagnoses Not on filedocumented in this encounter Care Teams Engine Lathe Set Up Operator Relationship Specialty Start Date End Date Alexi Nowak MD 230 [facility] [address] [place] [phone] [email or web address] PCP - General Family Medicine 12/18/18 10/19/22 Don Brown MD 230 [facility] [address] [place] [phone] PCP - General Family Medicine 10/20/22 documented as of this encounter Additional Source Comments The information contained in this document represents components of the legal health record. It is not the complete legal health record.[facility]
--- OUTSIDE RECORDS SUMMARY | 2025-06-04 15:29 | XMS_ITS | Encounter Summary ---
Author Organization [facility] Address [address] [place] [address] Phone Care Team Providers Care Motor Vehicle Licence Examiner Name Role Phone Belle Vega NP Primary Care Provider [phone] Nory Jones MD Unavailable Alexi Nowak MD Primary Care Provider [phone] Alexi Nowak MD Unavailable Don Brown MD Primary Care Provider Encounter Details Date Type Department Care Team (Late st Contact Info) Description 05/12/2018 Transcribe Orders [facility] Specimen Processing [address] [place] [address] Manuel Mercer MD 38 [facility] [address], [address] [place] [address] [email or web address] Cervical disc disorder with myelopathy of yavulhmd-qsranpe-xal al region (Primary Dx) Social History Tobacco Use Types [...] of this encounter Results * (ABNORMAL) CBC (05/12/2018 5:45 AM EDT) WBC 6.08 3.40 - 11.20 K/uL [facility] RBC 4.36(L) 4.50 - 5.50 M/uL [facility] HGB 12.6(L) 13.0 - 17.0 g/dL [facility] HCT 38.9(L) 40.0 - 51.0 % [facility] PLT 378 130 - 400 K/uL [facility] MCV 89.2 79.0 - 98.0 fL [facility] MCH 28.9 27.0 - 34.8 pg [facility] MCHC 32.4 31.5 - 36.0 g/dL [facility] RDW 12.6 10.8 - 14.6 % [facility] MPV 9.4 9.4 - 12.4 fl [facility] NRBC 0.00 /100 WBCs [facility] ABSOLUTE NRBC 0.00 K/uL [facility] Blood 05/12/2018 5:45 AM EDT 05/12/2018 9:58 AM EDT us Manuel Mercer MD LAB BLOOD BKR ORDERABLES Final R esult Performing Organization Address City/State/[facility] Co de Phone Number [address] [address] * (ABNORMAL) Comprehensive metabolic panel (05/12/2018 5:45 AM EDT) SODIUM 142 133 - 146 mmol/L [facility] POTASSIUM 4.4 3.3 - 5.1 mmol/L [facility] CHLORIDE 101 96 - 108 mmol/L [facility] CO2 27 21 - 35 mmol/L [facility] BUN 17 6 - 19 mg/dL [facility] CREATININE 0.90 0.5 - 1.5 mg/dL [facility] GLUCOSE 96 70 - 99 mg/dL [facility] ALBUMIN 3.6(L) 3.9 - 4.8 g/dL [facility] TOTAL PROTEIN 5.7(L) 6.5 - 8.0 g/dL [facility] CALCIUM 9.4 8.4 - 10.3 mg/dL [facility] ALKALINE PHOSPHATASE 60 39 - 117 U/L [facility] TOTAL BILIRUBIN 0.2 0.0 - 1.2 mg/dL [facility] AST 11 0 - 37 U/L [facility] ALT 10 0 - 40 U/L [facility] GLOBULIN 2.1 1 - 4.8 g/dL [facility] EGFR 92 >59 mL/min/1.7 3m2 [facility] Comment:If patient is black, multiply result by 1.159. Estimated glomerular filtration rate calculated using the CKD-EPI equation. ANION GAP 18 10 - 20 mmol/L [facility] Blood 05/12/2018 5:45 AM EDT 05/12/2018 9:58 AM EDT us Manuel Mercer MD LAB BLOOD BKR ORDERABLES Final R esult [facility] [address] [place] [address] documented in this encounter Visit Diagnoses Diagnosis Cervical disc disorder with myelopathy of ccsjgomd-yzowjtx-lujnd region- Primary documented in this encounter Care Teams Motor Vehicle Licence Examiner Relationship Specialty Start Date End Date Belle Vega NP PCP - General Family Medicine 03/05/18 12/17/18 Alexi Nowak MD [address] JANELL Jones [phone] [email or web address] PCP - General Family Medicine 12/18/18 10/19/22 Don Brown MD [address] [facility] [address] JANE[place] Jones [phone] PCP - General Family Medicine 10/20/22 Nory Jones MD [address] [place] [address] [email or web address] Insurance Assigned Provider 06/15/1808/16/18 Alexi Nowak MD [address] [place] [phone] [email or web address] Insurance Assigned Provider 04/25/19 documented as of this encounter Additional Source Comments The information contained in this document represents components of the legal health record. It is not the complete legal health record.[facility]
--- OUTSIDE RECORDS SUMMARY | 2025-06-04 15:29 | XMS_ITS | Encounter Summary ---
Author Organization [facility] Address [address] [place] [address] Phone Care Team Providers Care Boat Tender Name Role Phone Belle Vega NP Primary Care Provider [phone] Nory Jones MD Unavailable [phone] Alexi Nowak MD Primary Care Provider [phone] Alexi Nowak MD Unavailable Don Brown MD Primary Care Provider Encounter Details Date Type Department Care Team (Late st Contact Info) Description 04/29/2018 Transcribe Orders [facility] Specimen Processing 30 [place] [address] Manuel Mercer MD 38 [facility] 204, [address] [place] [address] [email or web address] Diagnosis unknown (Primary Dx) Social History Tobacco Use Types [...] of this encounter Results * (ABNORMAL) CBC (04/29/2018 4:40 AM EDT) WBC 7.30 3.40 - 11.20 K/uL [facility] RBC 4.25(L) 4.50 - 5.50 M/uL [facility] HGB 12.6(L) 13.0 - 17.0 g/dL [facility] HCT 37.6(L) 40.0 - 51.0 % [facility] PLT 240 130 - 400 K/uL [facility] MCV 88.5 79.0 - 98.0 fL [facility] MCH 29.6 27.0 - 34.8 pg [facility] MCHC 33.5 31.5 - 36.0 g/dL [facility] RDW 12.8 10.8 - 14.6 % [facility] MPV 9.9 9.4 - 12.4 fl [facility] NRBC 0.00 /100 WBCs [facility] ABSOLUTE NRBC 0.00 K/uL [facility] Blood 04/29/2018 4:40 AM EDT 04/29/2018 7:11 AM EDT us Manuel Mercer MD LAB BLOOD BKR ORDERABLES Final R esult [address] [id number] * (ABNORMAL) Comprehensive metabolic panel (04/29/2018 4:40 AM EDT) SODIUM 138 133 - 146 mmol/L [facility] POTASSIUM 5.2(H) 3.3 - 5.1 mmol/L [facility] CHLORIDE 97 96 - 108 mmol/L [facility] CO2 30 21 - 35 mmol/L [facility] BUN 15 6 - 19 mg/dL [facility] CREATININE 0.70 0.5 - 1.5 mg/dL [facility] GLUCOSE 118(H) 70 - 99 mg/dL [facility] ALBUMIN 3.6(L) 3.9 - 4.8 g/dL [facility] TOTAL PROTEIN 5.9(L) 6.5 - 8.0 g/dL [facility] CALCIUM 9.7 8.4 - 10.3 mg/dL [facility] ALKALINE PHOSPHATASE 51 39 - 117 U/L [facility] TOTAL BILIRUBIN 0.4 0.0 - 1.2 mg/dL [facility] AST 19 0 - 37 U/L [facility] ALT 24 0 - 40 U/L [facility] GLOBULIN 2.3 1 - 4.8 g/dL [facility] EGFR 102 >59 mL/min/1.7 3m2 [facility] Comment:If patient is black, multiply result by 1.159. Estimated glomerular filtration rate calculated using the CKD-EPI equation. ANION GAP 16 10 - 20 mmol/L [facility] Blood 04/29/2018 4:40 AM EDT 04/29/2018 7:11 AM EDT us Manuel Mercer MD LAB BLOOD BKR ORDERABLES Final R esult [facility] [address] [place] [address] documented in this encounter Visit Diagnoses Diagnosis Diagnosis unknown- Primary documented in this encounter Care Teams Boat Tender Relationship Specialty Start Date End Date Belle Vega NP PCP - General Family Medicine 03/05/18 12/17/18 Alexi Nowak MD 230 [facility] [address] [place] [address] PCP - General Family Medicine 12/18/18 10/19/22 Don Brown MD 230 [facility] [address] [place] [phone] PCP - General Family Medicine 10/20/22 Nory Jones MD [address] [place] [address] [email or web address] Insurance Assigned Provider 06/15/1808/16/18 Alexi Nowak MD [address] [place] [address] [place] [phone] Insurance Assigned Provider 04/25/19 documented as of this encounter Additional Source Comments The information contained in this document represents components of the legal health record. It is not the complete legal health record.[facility]
--- OUTSIDE RECORDS SUMMARY | 2025-06-04 15:29 | XMS_ITS | Encounter Summary ---
Author Organization [facility] Address [address] [place] [address] Phone Care Team Providers Care Retail Cosmetics Sales Counter Manager Name Role Phone Belle Vega NP Primary Care Provider [phone] Nory Jones MD Unavailable [phone] Alexi Nowak MD Primary Care Provider [phone] Alexi Nowak MD Unavailable Don Brown MD Primary Care Provider Encounter Details Date Type Department Care Team (Late st Contact Info) Description 05/05/2018 Transcribe Orders [facility] Specimen Processing 30 [place] [address] Manuel Mercer MD 38 [facility] 204, [address] [place] [address] [email or web address] Social History Tobacco Use Types Packs/Day Years [...] on filedocumented in this encounter Care Teams Retail Cosmetics Sales Counter Manager Relationship Specialty Start Date End Date Belle Vega NP PCP - General Family Medicine 03/05/18 12/17/18 Alexi Nowak MD [address] [place] [address] [email or web address] PCP - General Family Medicine 12/18/18 10/19/22 Don Brown MD [address] [place] [address] PCP - General Family Medicine 10/20/22 Nory Jones MD [address] [place] [address] [email or web address] Insurance Assigned Provider 06/15/1808/16/18 Alexi Nowak MD [address] [place] [address] [email or web address] Insurance Assigned Provider 04/25/19 documented as of this encounter Additional Source Comments The information contained in this document represents components of the legal health record. It is not the complete legal health record.[facility]
--- OUTSIDE RECORDS SUMMARY | 2025-06-04 15:29 | XMS_ITS | Encounter Summary ---
Author Organization [facility] Address [address] [place] [address] Phone Care Team Providers Care Cafe Team Member Name Role Phone Belle Vega NP Primary Care Provider [phone] Nory Jones MD Unavailable [phone] Alexi Nowak MD Primary Care Provider [phone] Alexi Nowak MD Unavailable Don Brown MD Primary Care Provider Encounter Details Date Type Department Care Team (Late st Contact Info) Description 05/05/2018 Transcribe Orders [facility] Specimen Processing 30 [place] [address] Manuel Mercer MD 38 [facility] 204, [address] [place] [address] [email or web address] Cervical spondylosis without myelopathy (Primary Dx); Other cord compression; Other insomnia Social History Tobacco Use Types Packs/Day Years [...] of this encounter Results * (ABNORMAL) CBC (05/05/2018 5:45 AM EDT) WBC 5.72 3.40 - 11.20 K/uL [facility] RBC 4.06(L) 4.50 - 5.50 M/uL [facility] HGB 12.0(L) 13.0 - 17.0 g/dL [facility] HCT 36.4(L) 40.0 - 51.0 % [facility] PLT 340 130 - 400 K/uL [facility] MCV 89.7 79.0 - 98.0 fL [facility] MCH 29.6 27.0 - 34.8 pg [facility] MCHC 33.0 31.5 - 36.0 g/dL [facility] RDW 12.7 10.8 - 14.6 % [facility] MPV 9.5 9.4 - 12.4 fl [facility] NRBC 0.00 /100 WBCs [facility] ABSOLUTE NRBC 0.00 K/uL [facility] Blood 05/05/2018 5:45 AM EDT 05/05/2018 8:48 AM EDT us Manuel Mercer MD LAB BLOOD BKR ORDERABLES Final R esult [address] [address] * (ABNORMAL) Comprehensive metabolic panel (05/05/2018 5:45 AM EDT) SODIUM 141 133 - 146 mmol/L [facility] POTASSIUM 4.5 3.3 - 5.1 mmol/L [facility] CHLORIDE 100 96 - 108 mmol/L [facility] CO2 28 21 - 35 mmol/L [facility] BUN 15 6 - 19 mg/dL [facility] CREATININE 0.80 0.5 - 1.5 mg/dL [facility] GLUCOSE 100(H) 70 - 99 mg/dL [facility] ALBUMIN 3.6(L) 3.9 - 4.8 g/dL [facility] TOTAL PROTEIN 5.8(L) 6.5 - 8.0 g/dL [facility] CALCIUM 9.3 8.4 - 10.3 mg/dL [facility] ALKALINE PHOSPHATASE 55 39 - 117 U/L [facility] TOTAL BILIRUBIN 0.2 0.0 - 1.2 mg/dL [facility] AST 12 0 - 37 U/L [facility] ALT 19 0 - 40 U/L [facility] GLOBULIN 2.2 1 - 4.8 g/dL [facility] EGFR 96 >59 mL/min/1.7 3m2 [facility] Comment:If patient is black, multiply result by 1.159. Estimated glomerular filtration rate calculated using the CKD-EPI equation. ANION GAP 18 10 - 20 mmol/L [facility] Blood 05/05/2018 5:45 AM EDT 05/05/2018 8:48 AM EDT us Manuel Mercer MD LAB BLOOD BKR ORDERABLES Final R esult [facility] 30 [place] [address] documented in this encounter Visit Diagnoses Diagnosis Cervical spondylosis without myelopathy- Primary Other cord compression Other insomnia documented in this encounter Care Teams Cafe Team Member Relationship Specialty Start Date End Date Belle Vega NP PCP - General Family Medicine 03/05/18 12/17/18 Alexi Nowak MD [address] [place] [phone] [email or web address] PCP - General Family Medicine 12/18/18 10/19/22 Don Brown MD [address] [place] [phone] PCP - General Family Medicine 10/20/22 Nory Jones MD [address] [place] [address] [email or web address] Insurance Assigned Provider 06/15/1808/16/18 Alexi Nowak MD [address] [place] [address] [place] [phone] [email or web address] Insurance Assigned Provider 04/25/19 documented as of this encounter Additional Source Comments The information contained in this document represents components of the legal health record. It is not the complete legal health record.[facility]
--- OUTSIDE RECORDS SUMMARY | 2025-06-04 15:29 | XMS_ITS | Encounter Summary ---
Author Organization [facility] Address [address] [place] [address] Phone Care Team Providers Care Sprinkler Inspector Name Role Phone Alexi Nowak MD Primary Care Provider [phone] Don Brown MD Primary Care Provider Encounter Details Date Type Department Care Team (Late st Contact Info) Description 09/27/2022 Procedure Pass [facility], [address] [address] Social History Tobacco Use Types Packs/Day Years [...] on filedocumented in this encounter Care Teams Sprinkler Inspector Relationship Specialty Start Date End Date Alexi Nowak MD 230 [facility] [address] [place] [phone] [email or web address] PCP - General Family Medicine 12/18/18 10/19/22 Don Brown MD 230 [facility] [address] [place] [address] PCP - General Family Medicine 10/20/22 documented as of this encounter Additional Source Comments The information contained in this document represents components of the legal health record. It is not the complete legal health record.[facility]
--- OUTSIDE RECORDS SUMMARY | 2025-06-04 15:30 | XMS_ITS | Encounter Summary ---
Author Organization [facility] Address [address] [place] [address] Phone Care Team Providers Care Armature And Rotor Winder Name Role Phone Belle Vega NP Primary Care Provider [phone] Nory Jones MD Unavailable Alexi Nowak MD Primary Care Provider [phone] Alexi Nowka MD Unavailable Don Brown MD Primary Care Provider Encounter Details Date Type Department Care Team (Late st Contact Info) Description 03/27/2018 Procedure Pass [facility] [place], [address] [address] Social History Tobacco Use Types Packs/Day Years [...] on filedocumented in this encounter Care Teams Armature And Rotor Winder Relationship Specialty Start Date End Date Belle Vega, MUCK HAULER PCP - General Family Medicine 03/05/18 12/17/18 Alexi Nowak MD [address] [place] [address] [email or web address] PCP - General Family Medicine 12/18/18 10/19/22 Don Brown MD [address] [place] [address] PCP - General Family Medicine 10/20/22 Nory Jones MD [address] [place] [phone] Insurance Assigned Provider 06/15/1808/16/18 Alexi Nowak MD [address] [place] [phone] [email or web address] Insurance Assigned Provider 04/25/19 documented as of this encounter Additional Source Comments The information contained in this document represents components of the legal health record. It is not the complete legal health record.[facility]
--- OUTSIDE RECORDS SUMMARY | 2025-06-04 15:30 | XMS_ITS | Encounter Summary ---
Author Organization [facility] Address [address] [place] [address] Phone Care Team Providers Care Refinery Operator Gas Plant Name Role Phone Belle Vega NP Primary Care Provider [phone] Nory Jones MD Unavailable [phone] Alexi Nowak MD Primary Care Provider [phone] Alexi Nowak MD Unavailable Don Brown MD Primary Care Provider Encounter Details Date Type Department Care Team (Latest Contact Info) Description 06/02/2018 Transcribe Orders [facility] Specimen Processing 30 [place] [address] Manuel Mercer MD 38 [facility] 204, [address] [place] [address] [email or web address] Intervertebral cervical disc disorder with myelopathy, cervical [...] of this encounter Results * (ABNORMAL) CBC (06/02/2018 6:10 AM EST) WBC 5.37 3.40 - 11.20 K/uL [facility] RBC 4.47(L) 4.50 - 5.50 M/uL [facility] HGB 13.0 13.0 - 17.0 g/dL [facility] HCT 39.2(L) 40.0 - 51.0 % [facility] PLT 259 130 - 400 K/uL [facility] MCV 87.7 79.0 - 98.0 fL [facility] MCH 29.1 27.0 - 34.8 pg [facility] MCHC 33.2 31.5 - 36.0 g/dL [facility] RDW 12.9 10.8 - 14.6 % [facility] MPV 10.2 9.4 - 12.4 fl [facility] NRBC 0.00 0.00 /100 WBCs [facility] ABSOLUTE NRBC 0.00 0.00 K/uL [facility] Blood 06/02/2018 6:10 AM EST 06/02/2018 8:05 AM EST us Manuel Mercer MD LAB BLOOD BKR ORDERABLES Final R esult Performing Organization Address City/State/[facility] Co de Phone Number [address] [address] * (ABNORMAL) Comprehensive metabolic panel (06/02/2018 6:10 AM EST) SODIUM 141 133 - 146 mmol/L [facility] POTASSIUM 4.5 3.3 - 5.1 mmol/L [facility] CHLORIDE 101 96 - 108 mmol/L [facility] CO2 27 21 - 35 mmol/L [facility] BUN 21(H) 6 - 19 mg/dL [facility] CREATININE 0.70 0.5 - 1.5 mg/dL [facility] GLUCOSE 95 70 - 99 mg/dL [facility] ALBUMIN 4.0 3.9 - 4.8 g/dL [facility] TOTAL PROTEIN 6.4(L) 6.5 - 8.0 g/dL [facility] CALCIUM 9.6 8.4 - 10.3 mg/dL [facility] ALKALINE PHOSPHATASE 61 39 - 117 U/L [facility] TOTAL BILIRUBIN 0.3 0.0 - 1.2 mg/dL [facility] AST 14 0 - 37 U/L [facility] ALT 11 0 - 40 U/L [facility] GLOBULIN 2.4 1 - 4.8 g/dL [facility] EGFR 102 >59 mL/min/1.7 3m2 [facility] Comment:If patient is black, multiply result by 1.159. Estimated glomerular filtration rate calculated using the CKD-EPI equation. ANION GAP 18 10 - 20 mmol/L [facility] Blood 06/02/2018 6:10 AM EST 06/02/2018 8:05 AM EST us Manuel Mercer MD LAB BLOOD BKR ORDERABLES Final R esult Performing Organization Address City/State/[facility] Co de Phone Number [facility] [address] [place] [address] documented in this encounter Visit Diagnoses Diagnosis Intervertebral cervical disc disorder with myelopathy, cervical region- Primary Disease of spinal cord Unspecified disease of spinal cord Gastroesophageal reflux disease without esophagitis Esophageal reflux documented in this encounter Care Teams Refinery Operator Gas Plant Relationship Specialty Start Date End Date Belle Vega NP PCP - General Family Medicine 03/05/18 12/17/18 Alexi Nowak MD [address] [facility] [employer] [address] [place] [phone] [email or web address] PCP - General Family Medicine 12/18/18 10/19/22 Don Brown MD [address] [facility] [address] [place] [phone] PCP - General Family Medicine 10/20/22 Nory Jones MD [address] [place] [address] [email or web address] Insurance Assigned Provider 06/15/1808/16/18 Alexi Nowak MD [address] [place] [address] [address] [place] [phone] [email or web address] Insurance Assigned Provider 04/25/19 documented as of this encounter Additional Source Comments The information contained in this document represents components of the legal health record. It is not the complete legal health record.[facility]
--- OUTSIDE RECORDS SUMMARY | 2025-06-04 15:30 | XMS_ITS | Encounter Summary ---
Author Organization [facility] Address [address] [place] [address] Phone Care Team Providers Care Circulation Crew Leader Name Role Phone Belle Vega NP Primary Care Provider [phone] Alexi Nowak MD Primary Care Provider [phone] Alexi Nowak MD Unavailable Don Brown MD Primary Care Provider Encounter Details Date Type Department Care Team (Late st Contact Info) Description 08/25/2018 Ancillary Orders Virtual Department 30 [place], [place] [phone] Quinton Handley MD 30 [place] [address] [email or web address] Fusion of spine, cervical region Social History Tobacco Use Types Packs/Day Years [...] documented as of this encounter Results * XR CERVICAL SPINE 2-3 VIEWS (08/26/2018 1:18 PM EST) Anatomical Region Laterality Modality C-spine Radiographic Alysha ging 08/26/2018 1:24 PM EST Impressions 08/26/2018 1:28 PM EST Postsurgical changes as detailed above. 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 Minor motion evident with flexion/extension at C3 3-4 without significant subluxation. S/S: Status post spinal fusion, cervical spondylosis POS - [id number] Narrative 08/26/2018 1:28 PM EST COMPARISON: Cervical spine CT scan April 23, 2018 FINDINGS: Since the prior cervical spine examination the patient is had mid to lower dorsal cervical spine surgery. Lateral neutral, lateral flexion, and lateral extension views of the cervical spine are obtained. There is congenital fusion of the C3 and C2 vertebral bodies. Degenerative change with disc space narrowing and spurring is evident at C4-5. This is evident previously. Degenerative disc disease is also evident at C6-7 with disc space narrowing and bony spurring. As best as can be determined on lateral view only and appears patent as is bilateral short segment dorsal fixation rods with dorsal laminectomy. This extends from approximately C5-T1. Flexed extension views there is minor ventral motion with flexion at C3-4 without significant subluxation. Procedure Note Justo Meyer MD - 08/26/2018 COMPARISON: Cervical spine CT scan April 23, 2018 FINDINGS: Since the prior cervical spine examination the patient is had mid to lowerdorsal cervical spine surgery. Lateral neutral, lateral flexion, and lateral extension views of thecervical spine are obtained. There is congenital fusion of the C3 and C2 vertebral bodies. Degenerativechange with disc space narrowing and spurring is evident at C4-5. This isevident previously. Degenerative disc disease is also evident at C6-7 withdisc space narrowing and bony spurring. As best as can be determined on lateral view only and appears patent as isbilateral short segment dorsal fixation rods with dorsal laminectomy. Thisextends from approximately C5-T1. Flexed extension views there is minor ventral motion with flexion at C3-4without significant subluxation. IMPRESSION: Postsurgical changes as detailed above. Extensive cervical spondylosiswith congenital fusion of the C2 and C3 vertebral bodies. Minor motionevident with flexion/extension at C3 3-4 without significantsubluxation. S/S: Status post spinal fusion, cervical spondylosis POS - [id number] Quinton Handley MD IMG XR SPINE Final Res ult documented in this encounter Visit Diagnoses Diagnosis Fusion of spine, cervical region Fusion of spine, cervical region documented in this encounter Care Teams Circulation Crew Leader Relationship Specialty Start Date End Date Belle Vega, PROFESSOR OF THEATER PCP - General Family Medicine 03/05/18 12/17/18 Alexi Nowak MD [address] [place] [phone] [email or web address] PCP - General Family Medicine 12/18/18 10/19/22 Don Brown MD [address] [place] [phone] PCP - General Family Medicine 10/20/22 Alexi Nowak MD [address] [place] [phone] [email or web address] Insurance Assigned Provider 04/25/19 documented as of this encounter Additional Source Comments The information contained in this document represents components of the legal health record. It is not the complete legal health record.[facility]
--- OUTSIDE RECORDS SUMMARY | 2025-06-04 15:30 | XMS_ITS | Encounter Summary ---
Author Organization [facility] Address [address] [place] [phone] Phone Care Team Providers Care Cosmetologist Apprentice Name Role Phone Belle Vega NP Primary Care Provider [phone] Nory Jones MD Unavailable [phone] Alexi Nowak MD Primary Care Provider [phone] Alexi Nowak MD Unavailable Don Brown MD Primary Care Provider Encounter Details Date Type Department Care Team (Latest Contact Info) Description 06/09/2018 Transcribe Orders [facility] Specimen Processing [address] [place] [address] Manuel Mercer MD 38 [facility] 204, [address] [place] [address] [email or web address] Intervertebral cervical disc disorder with myelopathy, cervical region (Primary Dx); Disease of spinal cord Social History Tobacco Use Types Packs/Day Years [...] documented as of this encounter Results * CBC (06/09/2018 5:30 AM EST) WBC 6.28 3.40 - 11.20 K/uL [facility] RBC 4.65 4.50 - 5.50 M/uL [facility] HGB 13.3 13.0 - 17.0 g/dL [facility] HCT 41.4 40.0 - 51.0 % [facility] PLT 309 130 - 400 K/uL [facility] MCV 89.0 79.0 - 98.0 fL [facility] MCH 28.6 27.0 - 34.8 pg [facility] MCHC 32.1 31.5 - 36.0 g/dL [facility] RDW 13.2 10.8 - 14.6 % [facility] MPV 9.9 9.4 - 12.4 fl [facility] NRBC 0.00 0.00 /100 WBCs [facility] ABSOLUTE NRBC 0.00 0.00 K/uL [facility] Blood 06/09/2018 5:30 AM EST 06/09/2018 8:08 AM EST us Manuel Mercer MD LAB BLOOD BKR ORDERABLES Final R esult Performing Organization Address City/State/[facility] Co de Phone Number [address] [phone] * (ABNORMAL) Comprehensive metabolic panel (06/09/2018 5:30 AM EST) SODIUM 142 133 - 146 mmol/L [facility] POTASSIUM 4.3 3.3 - 5.1 mmol/L [facility] CHLORIDE 100 96 - 108 mmol/L [facility] CO2 27 21 - 35 mmol/L [facility] BUN 21(H) 6 - 19 mg/dL [facility] CREATININE 0.80 0.5 - 1.5 mg/dL [facility] GLUCOSE 83 70 - 99 mg/dL [facility] ALBUMIN 4.2 3.9 - 4.8 g/dL [facility] TOTAL PROTEIN 6.5 6.5 - 8.0 g/dL [facility] CALCIUM 9.7 8.4 - 10.3 mg/dL [facility] ALKALINE PHOSPHATASE 55 39 - 117 U/L [facility] TOTAL BILIRUBIN 0.6 0.0 - 1.2 mg/dL [facility] AST 13 0 - 37 U/L [facility] ALT 10 0 - 40 U/L [facility] GLOBULIN 2.3 1 - 4.8 g/dL [facility] EGFR 96 >59 mL/min/1.7 3m2 [facility] Comment:If patient is black, multiply result by 1.159. Estimated glomerular filtration rate calculated using the CKD-EPI equation. ANION GAP 19 10 - 20 mmol/L [facility] Blood 06/09/2018 5:30 AM EST 06/09/2018 8:08 AM EST us Manuel Mercer MD LAB BLOOD BKR ORDERABLES Final R esult Performing Organization Address City/State/[facility] Co de Phone Number [address] [phone] documented in this encounter Visit Diagnoses Diagnosis Intervertebral cervical disc disorder with myelopathy, cervical region- Primary Disease of spinal cord Unspecified disease of spinal cord documented in this encounter Care Teams Cosmetologist Apprentice Relationship Specialty Start Date End Date Belle Vega NP PCP - General Family Medicine 03/05/18 12/17/18 Alexi Nowak MD [address] [place] [address] [email or web address] PCP - General Family Medicine 12/18/18 10/19/22 Don Brown MD [address] [facility] [address] [place] [address] PCP - General Family Medicine 10/20/22 Nory Jones MD [address] [place] [phone] [email or web address] Insurance Assigned Provider 06/15/1808/16/18 Alexi Nowak MD [address] [place] [phone] [email or web address] Insurance Assigned Provider 04/25/19 documented as of this encounter Additional Source Comments The information contained in this document represents components of the legal health record. It is not the complete legal health record.[facility]
--- OUTSIDE RECORDS SUMMARY | 2025-06-04 15:30 | XMS_ITS | Encounter Summary ---
Author Organization [facility] Address [address] [place] [address] Phone Care Team Providers Care Director Family Name Role Phone Belle Vega NP Primary Care Provider [phone] Alexi Nowak MD Primary Care Provider [phone] Alexi Nowak MD Unavailable Don Brown MD Primary Care Provider Encounter Details Date Type Department Care Team (Late st Contact Info) Description 08/26/2018 Ancillary Orders Virtual Department [address] [place] [address] Chapito Quinn, DO [address] [place] [address] .[employer] Left shoulder pain, unspecified chronicity Social History Tobacco Use Types Packs/Day Years [...] as of this encounter Visit Diagnoses Diagnosis Left shoulder pain, unspecified chronicity documented in this encounter Care Teams Director Family Relationship Specialty Start Date End Date Belle Vega NP PCP - General Family Medicine 03/05/18 12/17/18 Alexi Nowak MD [address] [place] [phone] [email or web address] PCP - General Family Medicine 12/18/18 10/19/22 Don Bronw MD [address] [place] [phone] PCP - General Family Medicine 10/20/22 Alexi Nowak MD [address] [place] [phone] [email or web address] Insurance Assigned Provider 04/25/19 documented as of this encounter Additional Source Comments The information contained in this document represents components of the legal health record. It is not the complete legal health record.[facility]
--- OUTSIDE RECORDS SUMMARY | 2025-06-04 15:30 | XMS_ITS | Encounter Summary ---
Author Organization [facility] Address [address] [place] [address] Phone Care Team Providers Care Operations Associate Name Role Phone Alexi Nowak MD Primary Care Provider [phone] Alexi Nowak MD Unavailable Don Brown MD Primary Care Provider Encounter Details Date Type Department Care Team (Late st Contact Info) Description 05/20/2019 Procedure Pass [address] [place] [address] Social History Tobacco Use Types Packs/Day Years [...] PM EDT documented as of this encounter Last Filed Vital Signs Vital Sign Reading Time Taken Comments Blood Pressure - - Pulse - - Temperature - - Respiratory Rate - - Oxygen Saturation - - Inhaled Oxygen Concentration - - Weight 72.6 kg (160 lb) 05/22/2019 6:39 PM EST Height 170.2 cm (5' 7 ) 05/22/2019 6:39 PM EST Body Mass Index 25.06 05/22/2019 6:39 PM EST documented in this encounter Plan of Treatment Not on file documented as of this encounter Visit Diagnoses Not on filedocumented in this encounter Care Teams Operations Associate Relationship Specialty Start Date End Date Alexi Nowak MD [address] [place] [phone] [email or web address] PCP - General Family Medicine 12/18/18 10/19/22 Don Brown MD [address] [place] [phone] PCP - General Family Medicine 10/20/22 Alexi Nowak MD [address] [place] [phone] [email or web address] Insurance Assigned Provider 04/25/19 documented as of this encounter Additional Source Comments The information contained in this document represents components of the legal health record. It is not the complete legal health record.[facility]
--- OUTSIDE RECORDS SUMMARY | 2025-06-04 15:30 | XMS_ITS | Encounter Summary ---
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 Minimally progressive disc ridge complex at T10-11. POS - [id number] Edited by: Lilibeth Palmer on 05/28/2019 3:37 PM Narrative 05/28/2019 3:50 PM EST HISTORY: Thoracic myelopathy. Spinal stenosis. COMPARISON: April 10, 2018. TECHNIQUE: Exam performed on a 1.5 Trupti high-field MRI scanner. Sagittal T1, T2 and STIR sequences, and limited axial T1 and T2-weighted sequences through each body and disc space were obtained. FINDINGS: Abnormality in the upper thoracic cord and cervicothoracic junction is described on MRI cervical spine which includes that region. Minor disc desiccation and slight spondylosis seen in the mid thoracic spine from T7 to T10. At T10-11 there is greater degenerative disc disease with disc ridge complex which is minimally progressed but without significant progressive mass effect. No nathan canal stenosis. No other areas of myelopathic signal. No syrinx. No other areas of stenosis. No compression deformity or worrisome marrow signal change is identified. No pleural effusion or other soft tissue finding of clear concern detected in the srmma-av-ewwa. Procedure Note Tanika Kim MD - 05/28/2019 HISTORY: Thoracic myelopathy. Spinal stenosis. COMPARISON: April 10, 2018. TECHNIQUE: Exam performed on a 1.5 Trupti high-field MRI scanner. SagittalT1, T2 and STIR sequences, and limited axial T1 and T2-weighted sequencesthrough each body and disc space were obtained. FINDINGS: Abnormality in the upper thoracic cord and cervicothoracic junction isdescribed on MRI cervical spine which includes that region. Minor discdesiccation and slight spondylosis seen in the mid thoracic spine from T7to T10. At T10-11 there is greater degenerative disc disease with discridge complex which is minimally progressed but without significantprogressive mass effect. No nathan canal stenosis. No other areas ofmyelopathic signal. No syrinx. No other areas of stenosis. No compressiondeformity or worrisome marrow signal change is identified. No pleuraleffusion or other soft tissue finding of clear concern detected in [id number]. IMPRESSION: No additional areas of spinal stenosis. Minimally progressive disc ridgecomplex at T10-11. POS - [id number] Edited by: Lilibeth Palmer on 05/28/2019 3:37 PM us Chapito Quinn DO IMG MR XSPECIALTY Final Resu lt * MRI CERVICAL SPINE (NEURO) FOCUS WITHOUT CONTRAST (05/28/2019 2:21 PM EST) Anatomical Region Laterality Modality C-spine Magnetic Resonan ce 05/28/2019 2:30 PM EST Impressions 05/28/2019 4:06 PM EST Relief of the severe spinal stenosis and cord compression previously present at C7-T1 with marked improvement in cord signal abnormality from T1 to T3. Only minimal residual cord signal abnormality now seen at upper endplate T1 level. No marked cord atrophy. Slightly increased mass effect on the right at the C4-5 level with slightly increasing uncovertebral spurring and disc ridge complex. POS - [id number] Edited by: Lilibeth Palmer on 05/28/2019 3:50 PM Narrative 05/28/2019 4:06 PM EST HISTORY: Cervicothoracic myelopathy. Spinal stenosis status-post decompression and cervical thoracic fusion. COMPARISON: Radiographs August 26, 2018. CT April 23, 2018. MRI April 13, 2018. TECHNIQUE: Exam performed on a 1.5 Trupti high-field MRI scanner. Sagittal T1, T2 and STIR, axial T2* gradient echo and 3-D bright fluid sequences were obtained. FINDINGS: Degenerative change noted at the craniocervical junction. Segmentation anomaly across C2-3 again noted, unchanged. C3-4: Minor degenerative disc disease without progressive canal or foraminal stenosis. C4-5: Degenerative disc disease with disc ridge complex and uncovertebral spurring extending out to the right again noted with compression of the right side of the cord, fairly similar in appearance to prior study. Foraminal narrowing also present as a result. The mass effect may be slightly increased. C5-6: Degenerative disc disease with some disc ridge complex is fairly similar in appearance to prior. Less focal disc towards the left suggested today. No progressive mass effect or stenosis. C6-7: Degenerative disc disease with disc ridge complex noted. Posterior decompression relieves any narrowing previously present. Foraminal narrowing more on the right persists. C7-T1: Anterolisthesis persists. Fusion hardware in place. Relief of the cord compression and spinal stenosis previously present. Some foraminal narrowing present due to the residual anterolisthesis. T1-2: Facet degenerative change with hypertrophic change of the right-sided facet more than left but only minimal foraminal narrowing. No central canal stenosis. Disc relatively well-preserved. T2-3: Mild disc desiccation with some trace disc bulging. No canal or foraminal stenosis. There is improvement in the abnormal cord signal most pronounced previously at T1. Small amounts of residual abnormal signal persist there, best appreciated on the sagittal STIR sequence. There is marked improvement in the cord signal change that was present below this suggesting that it was in fact related to the severe canal compromise and cord compression. No prominent atrophy. No syrinx seen. Some mild active degenerative endplate changes across C4-5. Study not tailored for evaluation of regional soft tissues but no soft tissue findings of clear concern detected in the qewel-cy-fuwi. Procedure Note Tanika Kim MD - 05/28/2019 HISTORY: Cervicothoracic myelopathy. Spinal stenosis status-postdecompression and cervical thoracic fusion. COMPARISON: Radiographs August 26, 2018. CT April 23, 2018. [id number]. TECHNIQUE: Exam performed on a 1.5 Trupti high-field MRI scanner. SagittalT1, T2 and STIR, axial T2* gradient echo and 3-D bright fluid sequenceswere obtained. FINDINGS: Degenerative change noted at the craniocervical junction. Segmentationanomaly across C2-3 again noted, unchanged. C3-4: Minor degenerative disc disease without progressive canal orforaminal stenosis. C4-5: Degenerative disc disease with disc ridge complex and uncovertebralspurring extending out to the right again noted with compression of theright side of the cord, fairly similar in appearance to prior study.Foraminal narrowing also present as a result. The mass effect may beslightly increased. C5-6: Degenerative disc disease with some disc ridge complex is fairlysimilar in appearance to prior. Less focal disc towards the left suggestedtoday. No progressive mass effect or stenosis. C6-7: Degenerative disc disease with disc ridge complex noted. Posteriordecompression relieves any narrowing previously present. Foraminalnarrowing more on the right persists. C7-T1: Anterolisthesis persists. Fusion hardware in place. Relief of thecord compression and spinal stenosis previously present. Some foraminalnarrowing present due to the residual anterolisthesis. T1-2: Facet degenerative change with hypertrophic change of theright-sided facet more than left but only minimal foraminal narrowing. Nocentral canal stenosis. Disc relatively well-preserved. T2-3: Mild disc desiccation with some trace disc bulging. No canal orforaminal stenosis. There is improvement in the abnormal cord signal most pronouncedpreviously at T1. Small amounts of residual abnormal signal persist there,best appreciated on the sagittal STIR sequence. There is markedimprovement in the cord signal change that was present below thissuggesting that it was in fact related to the severe canal compromise andcord compression. No prominent atrophy. No syrinx seen. Some mild active degenerative endplate changes across C4-5. Study not tailored for evaluation of regional soft tissues but no softtissue findings of clear concern detected in the [id number]. IMPRESSION: Relief of the severe spinal stenosis and cord compression previouslypresent at C7-T1 with marked improvement in cord signal abnormality fromT1 to T3. Only minimal residual cord signal abnormality now seen at upperendplate T1 level. No marked cord atrophy. Slightly increased mass effecton the right at the C4-5 level with slightly increasing uncovertebralspurring and disc ridge complex. 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 [place] [phone] [email or web address] PCP - General Family Medicine 12/18/18 10/19/22 Don Brown MD [address] [place] [phone] PCP - General Family Medicine 10/20/22 Alexi Nowak MD [address] [place] [phone] [email or web address] Insurance Assigned Provider 04/25/19 documented as of this encounter Additional Source Comments The information contained in this document represents components of the legal health record. It is not the complete legal health record.[facility]
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
--- OUTSIDE RECORDS SUMMARY | 2025-06-04 15:30 | XMS_ITS | Encounter Summary ---
Author Organization [facility] Address [address] [place] [address] Phone Care Team Providers Care Duco Polisher Name Role Phone Belle Vega NP Primary Care Provider [phone] Nory Jones MD Unavailable [phone] Alexi Nowak MD Primary Care Provider Alexi Nowak MD Unavailable Don Brown MD Primary Care Provider Encounter Details Date Type Department Care Team (Latest Contact Info) Description 05/19/2018 Transcribe Orders [facility] Specimen Processing [address] [place] [address] Manuel Mercer MD [address] [facility] [address], [address] [place] [address] [email or web address] Intervertebral cervical disc disorder with myelopathy, cervical region (Primary Dx); Disease of spinal cord; Gastroesophageal reflux disease, esophagitis presence not specified Social History Tobacco Use Types Packs/Day Years [...] of this encounter Results * (ABNORMAL) CBC (05/19/2018 5:25 AM EST) WBC 5.59 3.40 - 11.20 K/uL [facility] RBC 4.36(L) 4.50 - 5.50 M/uL [facility] HGB 12.6(L) 13.0 - 17.0 g/dL [facility] HCT 38.9(L) 40.0 - 51.0 % [facility] PLT 255 130 - 400 K/uL [facility] MCV 89.2 79.0 - 98.0 fL [facility] MCH 28.9 27.0 - 34.8 pg [facility] MCHC 32.4 31.5 - 36.0 g/dL [facility] RDW 12.6 10.8 - 14.6 % [facility] MPV 10.0 9.4 - 12.4 [facility] NRBC 0.00 0.00 /100 WBCs [facility] ABSOLUTE NRBC 0.00 0.00 K/uL [facility] Blood 05/19/2018 5:25 AM EST 05/19/2018 8:47 AM EST us Manuel Mercer MD LAB BLOOD BKR ORDERABLES Final R esult Performing Organization Address City/State/[facility] Co de Phone Number [address] [address] * (ABNORMAL) Comprehensive metabolic panel (05/19/2018 5:25 AM EST) SODIUM 144 133 - 146 mmol/L [facility] POTASSIUM 4.4 3.3 - 5.1 mmol/L [facility] CHLORIDE 105 96 - 108 mmol/L [facility] CO2 28 21 - 35 mmol/L [facility] BUN 18 6 - 19 mg/dL [facility] CREATININE 0.90 0.5 - 1.5 mg/dL [facility] GLUCOSE 87 70 - 99 mg/dL [facility] ALBUMIN 3.5(L) 3.9 - 4.8 g/dL [facility] TOTAL PROTEIN 5.6(L) 6.5 - 8.0 g/dL [facility] CALCIUM 9.0 8.4 - 10.3 mg/dL [facility] ALKALINE PHOSPHATASE 58 39 - 117 U/L [facility] TOTAL BILIRUBIN 0.2 0.0 - 1.2 mg/dL [facility] AST 11 0 - 37 U/L [facility] ALT 12 0 - 40 U/L [facility] GLOBULIN 2.1 1 - 4.8 g/dL [facility] EGFR 92 >59 mL/min/1.7 3m2 [facility] Comment:If patient is black, multiply result by 1.159. Estimated glomerular filtration rate calculated using the CKD-EPI equation. ANION GAP 15 10 - 20 mmol/L [facility] Blood 05/19/2018 5:25 AM EST 05/19/2018 8:47 AM EST us Manuel Mercer MD LAB BLOOD BKR ORDERABLES Final R esult [address] [address] documented in this encounter Visit Diagnoses Diagnosis Intervertebral cervical disc disorder with myelopathy, cervical region- Primary Disease of spinal cord Unspecified disease of spinal cord Gastroesophageal reflux disease, esophagitis presence not specified documented in this encounter Care Teams Duco Polisher Relationship Specialty Start Date End Date Belle Vega NP PCP - General Family Medicine 03/05/18 12/17/18 Alexi Nowak MD [address] [facility] [address] [place] [phone] [email or web address] PCP - General Family Medicine 12/18/18 10/19/22 Don Brown MD [address] [facility] [address] [place] [phone] PCP - General Family Medicine 10/20/22 Nory Jones MD [address] [place] [address] [email or web address] Insurance Assigned Provider 06/15/1808/16/18 Alexi Nowak MD [address] [place] [address] [address] [place] [phone] [email or web address] Insurance Assigned Provider 04/25/19 documented as of this encounter Additional Source Comments The information contained in this document represents components of the legal health record. It is not the complete legal health record.[facility]
--- OUTSIDE RECORDS SUMMARY | 2025-06-04 15:30 | XMS_ITS | Encounter Summary ---
Author Organization [facility] Address [address] [place] [address] Phone Care Team Providers Care Pipeline Executive Name Role Phone Alexi Nowak MD Primary Care Provider [phone] Alexi Nowak MD Unavailable Don Brown MD Primary Care Provider Encounter Details Date Type Department Care Team (Late st Contact Info) Description 05/20/2019 Procedure Pass [facility], [address] [place] [address] Social History Tobacco Use Types Packs/Day Years [...] on filedocumented in this encounter Care Teams Pipeline Executive Relationship Specialty Start Date End Date Alexi Nowak MD [address] [facility] [address] [place] [phone] [email or web address] PCP - General Family Medicine 12/18/18 10/19/22 Don Brown MD [address] [facility] [place] [phone] PCP - General Family Medicine 10/20/22 Alexi Nowak MD [address] [facility] [address] [place] [phone] [email or web address] Insurance Assigned Provider 04/25/19 documented as of this encounter Additional Source Comments The information contained in this document represents components of the legal health record. It is not the complete legal health record.[facility]
--- OUTSIDE RECORDS SUMMARY | 2025-06-04 15:30 | XMS_ITS | Encounter Summary ---
Author Organization [facility] Address [address] [place] [address] Phone Care Team Providers Care Garment Presser Name Role Phone Belle Vega NP Primary Care Provider [phone] Alexi Nowak MD Primary Care Provider Alexi Nowak MD Unavailable Don Brown MD Primary Care Provider Encounter Details Date Type Department Care Team (Late st Contact Info) Description 08/26/2018 Ancillary Orders [facility], X-Ray - [facility] [address] [place] [address] Chapito Quinn, DO [address] [place] [address] [email or web address] Social History Tobacco Use Types Packs/Day Years [...] as of this encounter Results * XR SHOULDER 2 VIEWS (RIGHT) (08/26/2018 3:20 PM EST) Anatomical Region Laterality Modality Shoulder Right Radiographic Alysha ging 08/26/2018 3:26 PM EST Impressions 08/26/2018 3:27 PM EST Mild superior subluxation of the head of the humerus relative to the glenoid fossa with slight irregularity at the insertion of the supraspinatus tendon evident along the greater tuberosity. No focal acute bony injury is seen. S/S: Right shoulder pain and limited range of motion x1 year POS - [id number] Narrative 08/26/2018 3:27 PM EST COMPARISON: None FINDINGS: 4 views of the right shoulder are obtained. There are mild degenerative changes in the AC joint. Slight superior subluxation of the head of the right humerus and the glenoid fossa is evident. There is minor irregularity along the greater tuberosity suggesting degenerative change at the insertion of the supraspinatus tendon. No periarticular calcifications are seen. The upper right lung field is clear. Procedure Note Justo Meyer MD - 08/26/2018 COMPARISON: None FINDINGS: 4 views of the right shoulder are obtained. There are mild degenerative changes in the AC joint. Slight superiorsubluxation of the head of the right humerus and the glenoid fossa isevident. There is minor irregularity along the greater tuberosity suggestingdegenerative change at the insertion of the supraspinatus tendon. No periarticular calcifications are seen. The upper right lung field is clear. IMPRESSION: Mild superior subluxation of the head of the humerus relative to theglenoid fossa with slight irregularity at the insertion of thesupraspinatus tendon evident along the greater tuberosity. No focal acute bony injury is seen. S/S: Right shoulder pain and limited range of motion x1 year POS - [id number] us Chapito Quinn DO IMG XR UPPER EXTREMITY Final Result documented in this encounter Visit Diagnoses Diagnosis Pain Generalized pain Pain Generalized pain documented in this encounter Care Teams Garment Presser Relationship Specialty Start Date End Date Belle Vega NP PCP - General Family Medicine 03/05/18 12/17/18 Alexi Nowak MD [address] [place] [phone] [email or web address] PCP - General Family Medicine 12/18/18 10/19/22 Don Brown MD [address] [place] [phone] PCP - General Family Medicine 10/20/22 Alexi Nowak MD [address] [place] [phone] [email or web address] Assigned Provider 04/25/19 documented as of this encounter Additional Source Comments The information contained in this document represents components of the legal health record. It is not the complete legal health record.[facility]
--- OUTSIDE RECORDS SUMMARY | 2025-06-04 15:30 | XMS_ITS | Encounter Summary ---
Author Organization [facility] Address [address] [address] Phone Care Team Providers Care Casing Blower Name Role Phone Alexi Nowak MD Primary Care Provider [phone] Alexi Nowak MD Unavailable Don Brown MD Primary Care Provider Reason for Referral * MRI/CAT Scan - Closed Specialty Diagnoses / Procedures Referred By Contac t Referred To Contact Radiology Diagnoses Spinal stenosis of lumbar region with neurogenic claudication Procedures MRI Lumbar Spine Chapito Quinn DO Phone: tel: fax: [email or web address] Referral ID Status Reason Start Date Expiration Date Visits Re quested Visits Authorized [id number] Closed 01/20/2020 01/19/2021 1 1 Encounter Details Date Type Department Care Team (Latest Contact Info) Description 01/20/2020 Ancillary Orders Virtual Department 30 [place] [address] Chapito Quinn DO [address] [place] [address] [email or web address] Spinal stenosis of lumbar region with neurogenic claudication Social History Tobacco Use Types Packs/Day Years [...] * MRI LUMBAR SPINE (NEURO) WITHOUT CONTRAST (01/30/2020 1:13 PM EDT) Anatomical Region Laterality Modality L-spine Magnetic Resonan ce 01/30/2020 1:19 PM EDT Impressions 01/30/2020 1:59 PM EDT 1. Broad-based disc bulge at L1-2 without consequence to the conus or nerve roots. 2. Broad-based disc bulge at L4-5 causing spinal canal stenosis and mild, bilateral L3 neural foraminal stenosis. 3. Bilateral L5 neural foraminal narrowing due to lateral bulging and spurring at L5-6. 4. Bilateral L6 spondylolyses. No significant change from the prior study. Narrative 01/30/2020 1:59 PM EDT HISTORY: spinal stenosis with neurogenic claudication TECHNIQUE: Exam performed on a 1.5 Trupti high-field MRI scanner. Sagittal T1, T2 and STIR, axial T1 and T2 sequences were obtained. COMPARISON: 04/10/2018 FINDINGS: There is a transitional morphology of the lumbosacral junction. Previously 6 vertebral bodies have been designated as lumbar type. The numbering from the prior examination is continued. There is grade 1 anterolisthesis of L6 on S1. This appears to be due to bilateral pars defects of L6. L1-2: There is disc desiccation. There is a broad-based disc bulge that indents the ventral margin of the thecal sac. It does not contact the nerve roots. There is mild narrowing of the inferior portions of the neural foramina. L2-3: There is no significant spinal canal or neural foraminal stenosis. L3-4: There is mild lateral bulging of the intervertebral disc with associated osteophytic spurring. There is no significant spinal canal stenosis. There is minimal narrowing of the neural foramina without definite consequence to the nerve roots. L4-5: There is a broad-based disc bulge that indents the right central margin of the thecal sac and causes crowding of the nerve roots. There is thickening of the ligamentum flavum and facet hypertrophy. There is bilateral neural foraminal narrowing that is primarily below the nerve roots though there is partial effacement of the fat bilaterally. L5-L6: There is mild lateral bulging of the intervertebral disc with associated osteophytic spurring. There is no significant spinal canal stenosis. There is bilateral L5 neural foraminal narrowing. L6-S1: There is no significant spinal canal or neural foraminal stenosis. The L6 neural foramina are flattened. Imaged portions of the aorta, iliac vessels and kidneys are unremarkable. Procedure Note Sylvester Smart MD - 01/30/2020 HISTORY: spinal stenosis with neurogenic claudication TECHNIQUE: Exam performed on a 1.5 Trupti high-field MRI scanner. SagittalT1, T2 and STIR, axial T1 and T2 sequences were obtained. COMPARISON: 04/10/2018 FINDINGS: There is a transitional morphology of the lumbosacral junction. Previously6 vertebral bodies have been designated as lumbar type. The numbering fromthe prior examination is continued. There is grade 1 anterolisthesis of L6on S1. This appears to be due to bilateral pars defects of L6. L1-2: There is disc desiccation. There is a broad-based disc bulge thatindents the ventral margin of the thecal sac. It does not contact thenerve roots. There is mild narrowing of the inferior portions of theneural foramina. L2-3: There is no significant spinal canal or neural foraminal stenosis. L3-4: There is mild lateral bulging of the intervertebral disc withassociated osteophytic spurring. There is no significant spinal canalstenosis. There is minimal narrowing of the neural foramina withoutdefinite consequence to the nerve roots. L4-5: There is a broad-based disc bulge that indents the right centralmargin of the thecal sac and causes crowding of the nerve roots. There isthickening of the ligamentum flavum and facet hypertrophy. There isbilateral neural foraminal narrowing that is primarily below the nerveroots though there is partial effacement of the fat bilaterally. L5-L6: There is mild lateral bulging of the intervertebral disc withassociated osteophytic spurring. There is no significant spinal canalstenosis. There is bilateral L5 neural foraminal narrowing. L6-S1: There is no significant spinal canal or neural foraminal stenosis.The L6 neural foramina are flattened. Imaged portions of the aorta, iliac vessels and kidneys areunremarkable. IMPRESSION: 1. Broad-based disc bulge at L1-2 without consequence to the conus ornerve roots. 2. Broad-based disc bulge at L4-5 causing spinal canal stenosis and mild,bilateral L3 neural foraminal stenosis. 3. Bilateral L5 neural foraminal narrowing due to lateral bulging andspurring at L5-6. 4. Bilateral L6 spondylolyses. No significant change from the prior study. us Chapito Quinn DO IMG MR XSPECIALTY Final Resu lt documented in this encounter Visit Diagnoses Diagnosis Spinal stenosis of lumbar region with neurogenic claudication Spinal stenosis of lumbar region with neurogenic claudication documented in this encounter Care Teams Casing Blower Relationship Specialty Start Date End Date Alexi Nowak MD [address] [place] [address] [email or web address] PCP - General Family Medicine 12/18/18 10/19/22 Don Brown MD [address] [place] [address] PCP - General Family Medicine 10/20/22 Alexi Nowak MD [address] [place] [phone] [email or web address] Insurance Assigned Provider 04/25/19 documented as of this encounter Additional Source Comments The information contained in this document represents components of the legal health record. It is not the complete legal health record.[facility]
--- OUTSIDE RECORDS SUMMARY | 2025-06-04 15:30 | XMS_ITS | Encounter Summary ---
Author Organization [facility] Address [address] [place] [address] Phone Care Team Providers Care Cloth Shrinking Supervisor Name Role Phone Alexi Nowak MD Primary Care Provider [phone] Don Brown MD Primary Care Provider Encounter Details Date Type Department Care Team (Late st Contact Info) Description 09/27/2022 Procedure Pass [facility], [address] [address] Social History Tobacco Use Types Packs/Day Years [...] on filedocumented in this encounter Care Teams Cloth Shrinking Supervisor Relationship Specialty Start Date End Date Alexi Nowak MD 230 [facility] [address] [place] [phone] [email or web address] PCP - General Family Medicine 12/18/18 10/19/22 Don Brown MD 230 [facility] [address] [place] [address] PCP - General Family Medicine 10/20/22 documented as of this encounter Additional Source Comments The information contained in this document represents components of the legal health record. It is not the complete legal health record.[facility]
--- OUTSIDE RECORDS SUMMARY | 2025-06-04 15:30 | XMS_ITS | Encounter Summary ---
Author Organization [facility] Address [address] [place] [address] Phone Care Team Providers Care Bods Developer Name Role Phone Belle Vega NP Primary Care Provider [phone] Nory Jones MD Unavailable [phone] Alexi Nowak MD Primary Care Provider [phone] Alexi Nowak MD Unavailable Don Brown MD Primary Care Provider Encounter Details Date Type Department Care Team (Late st Contact Info) Description 04/24/2018 Procedure Pass [place] Admitting Dept - [facility] Department [address] [place] [address] Social History Tobacco Use Types Packs/Day Years [...] on filedocumented in this encounter Care Teams Bods Developer Relationship Specialty Start Date End Date Belle Vega, OIL EXPLORATION ENGINEER PCP - General Family Medicine 03/05/18 12/17/18 Alexi Nowak MD [address] [place] [address] [email or web address] PCP - General Family Medicine 12/18/18 10/19/22 Don Brown MD [address] [place] [address] PCP - General Family Medicine 10/20/22 Nory Jones MD [address] [place] [address] Insurance Assigned Provider 06/15/1808/16/18 Alexi Nowak MD [address] [place] [address] [email or web address] Insurance Assigned Provider 04/25/19 documented as of this encounter Additional Source Comments The information contained in this document represents components of the legal health record. It is not the complete legal health record.[facility]
--- OUTSIDE RECORDS SUMMARY | 2025-06-04 15:30 | XMS_ITS | Encounter Summary ---
Author Organization [facility] Address [address] [place] [address] Phone Care Team Providers Care Laborer Chemical Processing Name Role Phone Belle Vega NP Primary Care Provider + [phone] Nory Jones MD Unavailable [phone] Alexi Nowak MD Primary Care Provider [phone] Alexi Nowak MD Unavailable Don Brown MD Primary Care Provider Encounter Details Date Type Department Care Team (Late st Contact Info) Description 04/11/2018 Procedure Pass [facility], [address] [address] Social History Tobacco Use Types Packs/Day Years [...] on filedocumented in this encounter Care Teams Laborer Chemical Processing Relationship Specialty Start Date End Date Belle Vega, RETAIL PERFORMANCE COACH PCP - General Family Medicine 03/05/18 12/17/18 Alexi Nowak MD [address] [place] [address] [email or web address] PCP - General Family Medicine 12/18/18 10/19/22 Don Brown MD [address] [place] [address] PCP - General Family Medicine 10/20/22 Nory Jones MD [address] [place] [address] Insurance Assigned Provider 06/15/1808/16/18 Alexi Nowak MD [address] [place] [address] [email or web address] Insurance Assigned Provider 04/25/19 documented as of this encounter Additional Source Comments The information contained in this document represents components of the legal health record. It is not the complete legal health record.[facility]
--- OUTSIDE RECORDS SUMMARY | 2025-06-04 15:30 | XMS_ITS | Encounter Summary ---
Author Organization [facility] Address [address] [address] Phone Care Team Providers Care J2Ee Application Developer Name Role Phone Alexi Nowak MD Primary Care Provider [phone] Alexi Nowak MD Unavailable Don Brown MD Primary Care Provider Encounter Details Date Type Department Care Team (Late st Contact Info) Description 01/20/2020 Procedure Pass [facility], [address] [id number] Social History Tobacco Use Types Packs/Day Years [...] on filedocumented in this encounter Care Teams J2Ee Application Developer Relationship Specialty Start Date End Date Alexi Nowak MD 230 [facility] [address] [place] [address] [email or web address] PCP - General Family Medicine 12/18/18 10/19/22 Don Brown MD 230 [facility] [place] [phone] PCP - General Family Medicine 10/20/22 Alexi Nowak MD 230 [facility] [address] [place] [phone] [email or web address] Assigned Provider 04/25/19 documented as of this encounter Additional Source Comments The information contained in this document represents components of the legal health record. It is not the complete legal health record.[facility]
--- OUTSIDE RECORDS SUMMARY | 2025-06-04 15:30 | XMS_ITS | Encounter Summary ---
Author Organization [facility] Address [address] [place] [address] Phone Care Team Providers Care Master Ship Name Role Phone Belle Vega NP Primary Care Provider [phone] Nory Jones MD Unavailable [phone] Alexi Nowak MD Primary Care Provider [phone] Alexi Nowak MD Unavailable Don Brown MD Primary Care Provider Encounter Details Date Type Department Care Team (Late st Contact Info) Description 04/11/2018 Ancillary Orders Virtual Department [address] [place] [address] Chapito Quinn, DO [address] [place] [address] [email or web address] Other spondylosis with myelopathy, site unspecified Social History Tobacco Use Types Packs/Day Years [...] as of this encounter Results * MRI CERVICAL SPINE (BONE) WITHOUT CONTRAST (04/13/2018 7:59 AM EDT) Anatomical Region Laterality Modality C-spine Magnetic Resonan ce 04/13/2018 11:4 2 AM EDT Impressions 04/13/2018 12:13 PM EDT 1. Grade 1 anterolisthesis of C7 relative to both C6 and T1, associated with high-grade central stenosis and abnormal signal in the cord consistent with long segment myelopathy, presumably related to the stenosis. Given the length of the involved segment there may be an ischemic or even traumatic component. Tumor or demyelinating disease seem unlikely. 2. Small to moderate central and left paramedian focal disc protrusion at C5-6 not associated with bony stenosis. No other focal disc protrusion. 3. Mild to moderate central and severe bilateral foraminal stenosis at C6-7. 4. Mild central and left foraminal stenosis at C4-5. 5. Moderate 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 POS - [id number] Narrative 04/13/2018 12:13 PM EDT TECHNIQUE: 1.5 Trupti high-field MRI scanner. Sagittal T1, T2 and STIR, axial T2* gradient echo and 3-D bright fluid sequences . Compare to CT 07/08/2016 and thoracic spine MRI 04/10/2018. . . . . . . . . . . . . . . . . . . Approximately 3 mm of anterolisthesis of C7 relative to both C6 and T1 is new since 2015. The other vertebral bodies are well-aligned. No marrow changes worrisome for bony trauma, tumor or infection. There appears to be diffusely increased signal within the central cord beginning at the upper endplate of T1 extending to the T2-3 disc level. No enlargement of the cord. This finding is likely related to stenosis at C6-7 as described below but given the long segment may indicate some element of ischemia. Tumor or demyelinating disease seem improbable. No other focal abnormalities in the cord. . . . . . . . . . . . . . . . . . . 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 No stenosis. C3-4: Minimal broad disc bulge. No focal protrusion. Uncinate hypertrophy produces moderate right foraminal stenosis. C4-5: Minimal disc bulge. No focal protrusion. Ridgelike endplate spurs at and posterior hypertrophy result and mild central and left foraminal stenosis and severe right foraminal stenosis. C5-6: Small to moderate-sized central and left paramedian focal disc protrusion containing bright T2 material suggesting recent HNP.This is only about 2 mm AP but almost 10 mm transverse, slightly effacing the ventral cord. Minimal endplate spurring but no significant bony stenosis. C6-7: Mild broad disc bulge but no focal protrusion. Endplate spurring produces mild to moderate central and severe bilateral foraminal stenosis. C7-T1: Anterolisthesis of C7 uncovers the posterior disc margin and the disc bulges up slightly behind C7 without focal disc protrusion. The combination of ridgelike endplate spurs, anterolisthesis of C7 and posterior ligamentous hypertrophy combine to produce severe central and right foraminal stenosis and moderately severe left foraminal stenosis. This is the level where bright signal becomes apparent throughout the cord which then extends down behind the T1 and T2 levels such that the myelopathic changes are presumably related to stenosis. T1-T2, T2-3 and T3-4 discs are unremarkable and there is no associated stenosis. Procedure Note Peterson Camarena MD - 04/13/2018 TECHNIQUE: 1.5 Trupti high-field MRI scanner. Sagittal T1, T2 and STIR, axial T2* gradient echo and 3-D bright fluidsequences . Compare to CT 07/08/2016 and thoracic spine MRI 04/10/2018. . . . . . . . . . . . . . . . . . . Approximately 3 mm of anterolisthesis of C7 relative to both C6 and T1 isnew since 2015. The other vertebral bodies are well-aligned. No marrow changes worrisome for bony trauma, tumor or infection. There appears to be diffusely increased signal within the central cordbeginning at the upper endplate of T1 extending to the T2-3 disc level. Noenlargement of the cord. This finding is likely related to stenosis atC6-7 as described below but given the long segment may indicate someelement of ischemia. Tumor or demyelinating disease seem improbable. No other focal abnormalities in the cord. . . . . . . . . . . . . . . . . . . C2-3: Congenital fusion of the posterior quarter of the vertebral bodieswith a rudimentary disc anteriorly. No stenosis. C3-4: Minimal broad disc bulge. No focal protrusion. Uncinate hypertrophyproduces moderate right foraminal stenosis. C4-5: Minimal disc bulge. No focal protrusion. Ridgelike endplate spurs atand posterior hypertrophy result and mild central and left foraminalstenosis and severe right foraminal stenosis. C5-6: Small to moderate-sized central and left paramedian focal discprotrusion containing bright T2 material suggesting recent HNP.This isonly about 2 mm AP but almost 10 mm transverse, slightly effacing theventral cord. Minimal endplate spurring but no significant bonystenosis. C6-7: Mild broad disc bulge but no focal protrusion. Endplate spurringproduces mild to moderate central and severe bilateral foraminalstenosis. C7-T1: Anterolisthesis of C7 uncovers the posterior disc margin and thedisc bulges up slightly behind C7 without focal disc protrusion. Thecombination of ridgelike endplate spurs, anterolisthesis of C7 andposterior ligamentous hypertrophy combine to produce severe central andright foraminal stenosis and moderately severe left foraminal stenosis.This is the level where bright signal becomes apparent throughout the cordwhich then extends down behind the T1 and T2 levels such that themyelopathic changes are presumably related to stenosis. T1-T2, T2-3 and T3-4 discs are unremarkable and there is no associatedstenosis. IMPRESSION: 1. Grade 1 anterolisthesis of C7 relative to both C6 and T1, associatedwith high-grade central stenosis and abnormal signal in the cordconsistent with long segment myelopathy, presumably related to thestenosis. Given the length of the involved segment there may be anischemic or even traumatic component. Tumor or demyelinating disease seemunlikely. 2. Small to moderate central and left paramedian focal disc protrusion atC5-6 not associated with bony stenosis. No other focal disc protrusion. 3. Mild to moderate central and severe bilateral foraminal stenosis atC6-7. 4. Mild central and left foraminal stenosis at C4-5. 5. Moderate 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 POS - [id number] Chapito Quinn DO IMG MR XSPECIALTY Final Resu lt documented in this encounter Visit Diagnoses Diagnosis Other spondylosis with myelopathy, site unspecified Other spondylosis with myelopathy, site unspecified documented in this encounter Care Teams Master Ship Relationship Specialty Start Date End Date Belle Vega, AUTOMATIC BOW MAKER MACHINE TENDER PCP - General Family Medicine 03/05/18 12/17/18 Alexi Nowak MD [address] [place] [address] [email or web address] PCP - General Family Medicine 12/18/18 10/19/22 Don Brown MD [address] [place] [phone] PCP - General Family Medicine 10/20/22 Nory Jones MD [address] [place] [phone] [email or web address] Insurance Assigned Provider 06/15/1808/16/18 Alexi Nowak MD [address] [place] [address] [email or web address] Insurance Assigned Provider 04/25/19 documented as of this encounter Additional Source Comments The information contained in this document represents components of the legal health record. It is not the complete legal health record.[facility]
--- OUTSIDE RECORDS SUMMARY | 2025-06-04 15:30 | XMS_ITS | Encounter Summary ---
Author Organization [facility] Address [address] [place] [address] Phone Care Team Providers Care Banbury Machine Operator Name Role Phone Belle Vega NP Primary Care Provider [phone] Nory Jones MD Unavailable [phone] Alexi Nowak MD Primary Care Provider [phone] Alexi Nowak MD Unavailable Don Brown MD Primary Care Provider Encounter Details Date Type Department Care Team (Late st Contact Info) Description 04/23/2018 Procedure Pass [facility], Ct Scan - [address] [address] Social History Tobacco Use Types Packs/Day Years [...] on filedocumented in this encounter Care Teams Banbury Machine Operator Relationship Specialty Start Date End Date Belle Vega, VERIFICATION ENGINEER PCP - General Family Medicine 03/05/18 12/17/18 Alexi Nowak MD [address] [place] [address] [email or web address] PCP - General Family Medicine 12/18/18 10/19/22 Don Brown MD [address] [place] [address] PCP - General Family Medicine 10/20/22 Nory Jones MD [address] [place] [phone] [email or web address] Insurance Assigned Provider 06/15/1808/16/18 Alexi Nowak MD [address] [facility] [address] [place] [address] [email or web address] Insurance Assigned Provider 04/25/19 documented as of this encounter Additional Source Comments The information contained in this document represents components of the legal health record. It is not the complete legal health record.[facility]
--- OUTSIDE RECORDS SUMMARY | 2025-06-04 15:30 | XMS_ITS | Encounter Summary ---
Author Organization [facility] Address [address] [place] [address] Phone Care Team Providers Care Md Ophthalmologist Name Role Phone Belle Vega NP Primary Care Provider + [phone] Nory Jones MD Unavailable [phone] Alexi Nowak MD Primary Care Provider [phone] Alexi Nowak MD Unavailable Don Brown MD Primary Care Provider Encounter Details Date Type Department Care Team (Late st Contact Info) Description 03/27/2018 Procedure Pass [facility], [address] [address] Social History Tobacco Use Types Packs/Day Years [...] on filedocumented in this encounter Care Teams Md Ophthalmologist Relationship Specialty Start Date End Date Belle Vega, MULTI SPINDLE OPERATOR PCP - General Family Medicine 03/05/18 12/17/18 Alexi Nowak MD [address] [place] [address] [email or web address] PCP - General Family Medicine 12/18/18 10/19/22 Don Brown MD [address] [place] [address] PCP - General Family Medicine 10/20/22 Nory Jones MD [address] [place] [phone] Insurance Assigned Provider 06/15/1808/16/18 Alexi Nowak MD [address] [place] [address] [email or web address] Insurance Assigned Provider 04/25/19 documented as of this encounter Additional Source Comments The information contained in this document represents components of the legal health record. It is not the complete legal health record.[facility]
--- OUTSIDE RECORDS SUMMARY | 2025-06-04 15:30 | XMS_ITS | Encounter Summary ---
Author Organization [facility] Address [address] [place] [address] Phone Care Team Providers Care Scuba Diving Instructor Name Role Phone Alexi Nowak MD Primary Care Provider [phone] Don Brown MD Primary Care Provider Reason for Referral * MRI/CAT Scan - Closed Specialty Diagnoses / Procedures Referred By Contac t Referred To Contact Radiology Diagnoses Radiculopathy, lumbar region Procedures MRI Lumbar Spine Chapito Quinn DO Phone: tel: fax: mailto:[email or web address] Referral ID Status Reason Start Date Expiration Date Visits Re quested Visits Authorized [id number] Closed 09/27/2022 09/27/2023 1 1 * MRI/CAT Scan - Closed Specialty Diagnoses / Procedures Referred By Contac t Referred To Contact Radiology Diagnoses Cervical disc disorder with myelopathy, cervicothoracic region Procedures MRI Thoracic Spine Chapito Quinn DO Phone: tel: fax: mailto:[email or web address] Referral ID Status Reason Start Date Expiration Date Visits Re quested Visits Authorized [id number] Closed 09/27/2022 09/27/2023 1 1 * MRI/CAT Scan - Closed Specialty Diagnoses / Procedures Referred By Jose Alberto cartagena Referred To Contact Radiology Diagnoses Cervical disc disorder with myelopathy, cervicothoracic region Procedures MRI Cervical Spine Chapito Quinn DO Phone: tel: fax: mailto:[email or web address] Referral ID Status Reason Start Date Expiration Date Visits Re quested Visits Authorized [id number] Closed 09/27/2022 09/27/2023 1 1 Encounter Details Date Type Department Care Team (Latest Contact Info) Description 09/27/2022 Transcribe Orders Virtual Department [address] [place] [address] Chapito Quinn DO [address] [place] [address] [email or web address] Cervical disc disorder with myelopathy, cervicothoracic region (Primary Dx); Radiculopathy, lumbar region Social History Tobacco Use Types Packs/Day [...] * MRI LUMBAR SPINE (NEURO) WITHOUT CONTRAST (10/20/2022 5:43 PM EDT) Anatomical Region Laterality Modality L-spine Magnetic Resonan ce 10/21/2022 11:3 1 PM EDT Impressions 10/21/2022 11:43 PM EDT 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 This was confirmed by numbering inferiorly from C2 and is in keeping with prior MRIs. Worsening L4-5 degenerative changes, with worsening disc bulge, developing posterior disc osteophyte complex, facet arthropathy, and thickening of ligamentum flavum which cause severe spinal canal and severe neuroforaminal stenoses. Additional multilevel neuroforaminal stenoses, severe left and moderate to severe right at L5 L6 and moderate at L1-2, L2-3, and L3-4. Endplate marrow edema at L4-5, may reflect an axial pain generator. 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 This was confirmed by numbering inferiorly from C2 and is in keeping with prior MRIs. ALIGNMENT: 2 mm L6-S1 anterolisthesis. MARROW: No compression fracture or marrow replacing lesion. DISCS: Disc desiccation at L1-2, L4-5, and L5-L6. New endplate marrow edema at L4-5. CONUS: Normal appearance and terminates at L1. PARASPINAL SOFT TISSUES: Questionable L6 pars defects. Parapelvic cysts in the kidneys bilaterally. Scattered colonic diverticulosis. FINDINGS BY LEVEL: T12-L1:No spinal canal or neuroforaminal stenosis. L1-2: Diffuse disc bulge, facet arthropathy, and thickening of ligamentum flavum. No spinal canal stenosis. Moderate neuroforaminal stenosis. L2-3: Facet arthropathy and thickening of ligamentum flavum. No spinal canal stenosis. Moderate neuroforaminal stenosis. L3-4: Diffuse disc bulge, facet arthropathy, and thickening of ligamentum flavum. No spinal canal stenosis. Moderate neuroforaminal stenosis. L4-5: Diffuse disc bulge, developing disc osteophyte complex, facet arthropathy, and thickening of ligamentum flavum. Severe spinal canal stenosis. Severe neuroforaminal stenosis. L5-L6: Posterior disc bulge, facet arthropathy, and thickening of ligamentum flavum. No spinal canal stenosis. Severe left and moderate to severe right neuroforaminal stenosis. L6-S1: Diffuse disc bulge, facet arthropathy, and thickening of ligamentum flavum. No spinal canal stenosis. Moderate left and mild right neuroforaminal stenosis. 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 Thiswas confirmed by numbering inferiorly from C2 and is in keeping with priorMRIs. ALIGNMENT: 2 mm L6-S1 anterolisthesis. MARROW: No compression fracture or marrow replacing lesion. DISCS: Disc desiccation at L1-2, L4-5, and L5-L6. New endplate marrowedema at L4-5. CONUS: Normal appearance and terminates at L1. PARASPINAL SOFT TISSUES: Questionable L6 pars defects. Parapelvic cysts inthe kidneys bilaterally. Scattered colonic diverticulosis. FINDINGS BY LEVEL: T12-L1:No spinal canal or neuroforaminal stenosis. L1-2: Diffuse disc bulge, facet arthropathy, and thickening of ligamentumflavum. No spinal canal stenosis. Moderate neuroforaminal stenosis. L2-3: Facet arthropathy and thickening of ligamentum flavum. No spinalcanal stenosis. Moderate neuroforaminal stenosis. L3-4: Diffuse disc bulge, facet arthropathy, and thickening of ligamentumflavum. No spinal canal stenosis. Moderate neuroforaminal stenosis. L4-5: Diffuse disc bulge, developing disc osteophyte complex, facetarthropathy, and thickening of ligamentum flavum. Severe spinal canalstenosis. Severe neuroforaminal stenosis. L5-L6: Posterior disc bulge, facet arthropathy, and thickening ofligamentum flavum. No spinal canal stenosis. Severe left and moderate tosevere right neuroforaminal stenosis. L6-S1: Diffuse disc bulge, facet arthropathy, and thickening of ligamentumflavum. No spinal canal stenosis. Moderate left and mild rightneuroforaminal stenosis. 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 Thiswas confirmed by numbering inferiorly from C2 and is in keeping with priorMRIs. Worsening L4-5 degenerative changes, with worsening disc bulge, developingposterior disc osteophyte complex, facet arthropathy, and thickening ofligamentum flavum which cause severe spinal canal and severeneuroforaminal stenoses. Additional multilevel neuroforaminal stenoses, severe left and moderate tosevere right at L5 L6 and moderate at L1-2, L2-3, and L3-4. Endplate marrow edema at L4-5, may reflect an axial pain generator. us Chapito C Quinn DO IMG MR XSPECIALTY Final Resu lt * MRI THORACIC SPINE (BONE) WITHOUT CONTRAST (10/20/2022 5:43 PM EDT) Anatomical Region Laterality Modality T-spine Magnetic Resonan ce 10/21/2022 11:2 4 PM EDT Impressions 10/21/2022 11:43 PM EDT When compared to 05/28/2019: Worsening T10-11 disc degeneration with new endplate marrow edema and similar posterior disc bulge. Mild to moderate spinal canal stenosis at this level. Multilevel neuroforaminal stenoses, severe left and moderate right at T10-11 and moderate at T9-10 and T11-12. T10-11 endplate marrow edema may reflect an axial pain generator. Narrative 10/21/2022 11:43 PM EDT MRI THORACIC SPINE (BONE) WITHOUT CONTRAST TECHNIQUE: MRI THORACIC SPINE (BONE) WITHOUT CONTRAST Multi-sequence, multi-planar MRI of the thoracic spine was performed without intravenous contrast. COMPARISON: MRI THORACIC SPINE (NEURO) WITHOUT CONTRAST FINDINGS: ALIGNMENT AND VERTEBRAE: Thoracic kyphosis within normal limits. No spondylolisthesis. No compression fractures. MARROW: No marrow replacing lesions. DISCS AND ENDPLATES: Disc desiccation at all levels. New endplate marrow edema at T10-11. SPINAL CORD: No signal abnormality. Mild to moderate spinal canal stenosis at T10-11. SOFT TISSUE: No prevertebral edema. Paraspinal soft tissues within normal limits. OTHER FINDINGS: Severe left neuroforaminal stenosis at T10-11. Moderate neuroforaminal stenosis at T9-10 and T11-12. Procedure Note Kevon Flanagan MD - 10/21/2022 MRI THORACIC SPINE (BONE) WITHOUT CONTRAST TECHNIQUE: MRI THORACIC SPINE (BONE) WITHOUT CONTRAST Multi-sequence, multi-planar MRI of the thoracic spine was performedwithout intravenous contrast. COMPARISON: MRI THORACIC SPINE (NEURO) WITHOUT CONTRAST FINDINGS: ALIGNMENT AND VERTEBRAE: Thoracic kyphosis within normal limits. Nospondylolisthesis. No compression fractures. MARROW: No marrow replacing lesions. DISCS AND ENDPLATES: Disc desiccation at all levels. New endplate marrowedema at T10-11. SPINAL CORD: No signal abnormality. Mild to moderate spinal canal stenosisat T10-11. SOFT TISSUE: No prevertebral edema. Paraspinal soft tissues within normallimits. OTHER FINDINGS: Severe left neuroforaminal stenosis at T10-11. Moderateneuroforaminal stenosis at T9-10 and T11-12. IMPRESSION: When compared to 05/28/2019: Worsening T10-11 disc degeneration with new endplate marrow edema andsimilar posterior disc bulge. Mild to moderate spinal canal stenosis atthis level. Multilevel neuroforaminal stenoses, severe left and moderate right [id number] and moderate at T9-10 and T11-12. T10-11 endplate marrow edema may reflect an axial pain generator. us Chapito Quinn DO IMG MR XSPECIALTY Final Resu lt * MRI CERVICAL SPINE (BONE) WITHOUT CONTRAST (10/20/2022 5:43 PM EDT) Anatomical Region Laterality Modality C-spine Magnetic Resonan ce 10/21/2022 11:1 3 PM EDT Impressions 10/21/2022 11:43 PM EDT Surgical changes from C7 posterior decompression and C6-T1 posterior fusion. Unchanged linear myelomalacia at C7-T1 disc level. Worsening C4-5 degenerative changes, now moderate to severe spinal canal, severe right, and moderate to severe left neuroforaminal stenoses. Additional neuroforaminal stenoses, moderate at C5-6 and C6-7 and moderate right and mild left at C3-4. Increasing endplate marrow edema at C4-5, may reflect an axial pain generator. Narrative 10/21/2022 11:43 PM EDT MRI CERVICAL SPINE (BONE) WITHOUT CONTRAST TECHNIQUE: MRI CERVICAL SPINE (BONE) WITHOUT CONTRAST COMPARISON: MRI CERVICAL SPINE (NEURO) FOCUS WITHOUT CONTRAST ; MRI CERVICAL SPINE (BONE) WITHOUT CONTRAST FINDINGS: Postsurgical changes from C7 posterior decompression and C6-T1 posterior fusion with billy and screw construct. Areas of susceptibility artifact limits evaluation of adjacent soft tissue structures. Sagittal STIR images heavily motion degraded. ALIGNMENT: Straightening of the cervical lordosis. 5 mm C7-T1 anterolisthesis. MARROW: Heterogeneous marrow signal without marrow replacing lesions. Incidental C2-C3 congenital fusion. DISCS: Disc desiccation at all levels. Endplate marrow edema at C4-5, increased when compared to 05/28/2019. CORD: Trace residual myelomalacia at C7-T1 disc level, similar when compared to 05/28/2019 and improved when compared to 2017. PARASPINAL SOFT TISSUES: Within normal limits. Vertebral artery flow voids preserved. FINDINGS BY LEVEL: C2-3: No spinal canal neuroforaminal stenosis. C3-4: Diffuse disc bulge, facet arthropathy, uncovertebral hypertrophy, and thickening of ligamentum flavum. Mild spinal canal stenosis. Moderate right and mild left neuroforaminal stenosis. C4-5: Diffuse disc bulge, developing posterior disc osteophyte complex, facet arthropathy, and uncovertebral hypertrophy. Moderate to severe spinal canal stenosis. Severe right and moderate to severe left neuroforaminal stenosis. C5-6: Diffuse disc bulge with superimposed central disc protrusion, facet arthropathy, uncovertebral hypertrophy, and thickening of ligamentum flavum. Mild spinal canal stenosis. Moderate neuroforaminal stenosis. C6-7: Posterior decompression. No spinal canal stenosis. Moderate neuroforaminal stenosis. C7-T1:Posterior disc bulge. No spinal canal or neuroforaminal stenosis. Procedure Note Kevon Flanagan MD - 10/21/2022 MRI CERVICAL SPINE (BONE) WITHOUT CONTRAST TECHNIQUE: MRI CERVICAL SPINE (BONE) WITHOUT CONTRAST COMPARISON: MRI CERVICAL SPINE (NEURO) FOCUS WITHOUT CONTRAST ;MRI CERVICAL SPINE (BONE) WITHOUT CONTRAST FINDINGS: Postsurgical changes from C7 posterior decompression and C6-T1 posteriorfusion with billy and screw construct. Areas of susceptibility artifactlimits evaluation of adjacent soft tissue structures. Sagittal STIR imagesheavily motion degraded. ALIGNMENT: Straightening of the cervical lordosis. 5 mm [id number]. MARROW: Heterogeneous marrow signal without marrow replacing lesions.Incidental C2-C3 congenital fusion. DISCS: Disc desiccation at all levels. Endplate marrow edema at C4-5,increased when compared to 05/28/2019. CORD: Trace residual myelomalacia at C7-T1 disc level, similar whencompared to 05/28/2019 and improved when compared to 2017. PARASPINAL SOFT TISSUES: Within normal limits. Vertebral artery flow voidspreserved. FINDINGS BY LEVEL: C2-3: No spinal canal neuroforaminal stenosis. C3-4: Diffuse disc bulge, facet arthropathy, uncovertebral hypertrophy,and thickening of ligamentum flavum. Mild spinal canal stenosis. Moderateright and mild left neuroforaminal stenosis. C4-5: Diffuse disc bulge, developing posterior disc osteophyte complex,facet arthropathy, and uncovertebral hypertrophy. Moderate to severespinal canal stenosis. Severe right and moderate to severe leftneuroforaminal stenosis. C5-6: Diffuse disc bulge with superimposed central disc protrusion, facetarthropathy, uncovertebral hypertrophy, and thickening of ligamentumflavum. Mild spinal canal stenosis. Moderate neuroforaminal stenosis. C6-7: Posterior decompression. No spinal canal stenosis. Moderateneuroforaminal stenosis. C7-T1:Posterior disc bulge. No spinal canal or neuroforaminal stenosis. IMPRESSION: Surgical changes from C7 posterior decompression and C6-T1 posteriorfusion. Unchanged linear myelomalacia at C7-T1 disc level. Worsening C4-5 degenerative changes, now moderate to severe spinal canal,severe right, and moderate to severe left neuroforaminal stenoses. Additional neuroforaminal stenoses, moderate at C5-6 and C6-7 and moderateright and mild left at C3-4. Increasing endplate marrow edema at C4-5, may reflect an axial paingenerator. Chapito Quinn DO IMG MR XSPECIALTY Final Resu lt documented in this encounter Visit Diagnoses Diagnosis Cervical disc disorder with myelopathy, cervicothoracic region- Primary Radiculopathy, lumbar region Thoracic or lumbosacral neuritis or radiculitis, unspecified Cervical disc disorder with myelopathy, cervicothoracic region Radiculopathy, lumbar region Thoracic or lumbosacral neuritis or radiculitis, unspecified documented in this encounter Care Teams Scuba Diving Instructor Relationship Specialty Start Date End Date Alexi Nowak MD [address] [facility] [address] [place] [phone] [email or web address] PCP - General Family Medicine 12/18/18 10/19/22 Don Brown MD [address] [facility] [address] [place] [phone] PCP - General Family Medicine 10/20/22 documented as of this encounter Additional Source Comments The information contained in this document represents components of the legal health record. It is not the complete legal health record.[facility]
[2025-06-04 15:36] VITALS: BP 120/68; PULSE 97; RESP 14; TEMP 36.9; O2SAT 97; BMI 27.3
== END 2025-06-04 16:15 | disposition home or self-care (01) ==
LOC: HO.HMCFM 15:23
PROVIDERS: PCP Family Medicine; Visit Provider Family Medicine
DX: H53.9 Unspecified visual disturbance (principal); E78.5 Hyperlipidemia, unspecified; I65.29 Occlusion and stenosis of unspecified carotid artery

== ENCOUNTER → 2025-06-04 15:22 | Outpatient (BNVA) | payer MEDICARE, SELFPAY | PROVIDERS: PCP Family Medicine; Visit Provider Family Medicine | DX: H53.9 Unspecified visual disturbance (principal); E78.5 Hyperlipidemia, unspecified; Z86.79 Personal history of other diseases of the circulatory system | CPT/HCPCS: 99212 ==

== ENCOUNTER 2025-07-07 10:55 | Outpatient (AMB) | payer MEDICARE, SELFPAY ==
--- OUTSIDE RECORDS SUMMARY | 2025-07-07 11:00 | XMS_ITS | Encounter Summary ---
Author Organization [facility] Address [address] [address] Phone Care Team Providers Care Linux Consultant Name Role Phone Don Brown MD Primary Care Provider Encounter Details Date Type Department Care Team (Latest Contact Info) Description 12/19/2022 Transcribe Orders Virtual Department [address] [place] [address] Chapito Quinn, DO [address] [place] [address] [email or web address] Right shoulder pain, unspecified chronicity (Primary Dx) [...] Primary documented in this encounter Care Teams Linux Consultant Relationship Specialty Start Date End Date Don Brown MD PCP - General Family Medicine 10/20/22 documented as of this encounter Additional Source Comments The information contained in this document represents components of the legal health record. It is not the complete legal health record.[facility]
--- OUTSIDE RECORDS SUMMARY | 2025-07-07 11:00 | XMS_ITS | Encounter Summary ---
Author Organization [facility] Address [address] [place] [address] Phone Care Team Providers Care Pharmacy Sales Assistant Name Role Phone Alexi Nowak MD Primary Care Provider [phone] Don Brown MD Primary Care Provider Encounter Details Date Type Department Care Team (Late st Contact Info) Description 09/27/2022 Procedure Pass [facility], [address] [address] Social History Tobacco Use Types Packs/Day Years [...] on filedocumented in this encounter Care Teams Pharmacy Sales Assistant Relationship Specialty Start Date End Date Alexi Nowak MD [address] [facility] [address] [place] [phone] [email or web address] PCP - General Family Medicine 12/18/18 10/19/22 Don Brown MD 230 [facility] [address] [place] [phone] PCP - General Family Medicine 10/20/22 documented as of this encounter Additional Source Comments The information contained in this document represents components of the legal health record. It is not the complete legal health record.[facility]
--- OUTSIDE RECORDS SUMMARY | 2025-07-07 11:01 | XMS_ITS | Encounter Summary ---
Author Organization [facility] Address [address] [place] [address] Phone Care Team Providers Care Sanitarian Inspector Name Role Phone Alexi Nowak MD Primary Care Provider [phone] Don Brown MD Primary Care Provider Encounter Details Date Type Department Care Team (Late st Contact Info) Description 09/27/2022 Procedure Pass [facility], [address] [address] Social History Tobacco Use Types Packs/Day Years [...] on filedocumented in this encounter Care Teams Sanitarian Inspector Relationship Specialty Start Date End Date Alexi Nowak MD [address] [facility] [address] [place] [phone] [email or web address] PCP - General Family Medicine 12/18/18 10/19/22 Don Brown MD [address] [facility] [address] [place] [phone] PCP - General Family Medicine 10/20/22 documented as of this encounter Additional Source Comments The information contained in this document represents components of the legal health record. It is not the complete legal health record.[facility]
--- OUTSIDE RECORDS SUMMARY | 2025-07-07 11:01 | XMS_ITS | Encounter Summary ---
Author Organization [facility] Address [address] [address] Phone Care Team Providers Care Bariatric Surgeon Name Role Phone Alexi Nowak MD Primary Care Provider [phone] Alexi Nowak MD Unavailable Don Brown MD Primary Care Provider Encounter Details Date Type Department Care Team (Late st Contact Info) Description 01/20/2020 Procedure Pass [facility], [address] [id number] Social History Tobacco Use Types Packs/Day Years [...] on filedocumented in this encounter Care Teams Bariatric Surgeon Relationship Specialty Start Date End Date Alexi Nowak MD [address] [facility] [address] [place] [address] PCP - General Family Medicine 12/18/18 10/19/22 Don Brown MD 230 [facility]. [address] [place] [phone] PCP - General Family Medicine 10/20/22 Alexi Nowak MD 230 [facility] [address] [place] [phone] Insurance Assigned Provider 04/25/19 documented as of this encounter Additional Source Comments The information contained in this document represents components of the legal health record. It is not the complete legal health record.[facility]
--- OUTSIDE RECORDS SUMMARY | 2025-07-07 11:01 | XMS_ITS | Encounter Summary ---
Author Organization [facility] Address [address] [place] [address] Phone Care Team Providers Care Director Field Services Name Role Phone Belle Vega NP Primary Care Provider [phone] Nory Jones MD Unavailable [phone] Alexi Nowak MD Primary Care Provider [phone] Alexi Nowak MD Unavailable Don Brown MD Primary Care Provider Encounter Details Date Type Department Care Team (Late st Contact Info) Description 05/05/2018 Transcribe Orders [facility] Specimen Processing [address] [place] [address] Manuel Mercer MD [address] [facility] [address], [address] [place] [address] [email or web address] Social History Tobacco Use Types Packs/Day Years [...] on filedocumented in this encounter Care Teams Director Field Services Relationship Specialty Start Date End Date Belle Vega NP PCP - General Family Medicine 03/05/18 12/17/18 Alexi Nowak MD [address] [place] [phone] [email or web address] PCP - General Family Medicine 12/18/18 10/19/22 Don Brown MD [address] [place] [phone] PCP - General Family Medicine 10/20/22 Nory Jones MD [address] [place] [id number] [email or web address] Insurance Assigned Provider 06/15/1808/16/18 Alexi Nowak MD [address] [place] [phone] [email or web address] Insurance Assigned Provider 04/25/19 documented as of this encounter Additional Source Comments The information contained in this document represents components of the legal health record. It is not the complete legal health record.[facility]
--- OUTSIDE RECORDS SUMMARY | 2025-07-07 11:01 | XMS_ITS | Encounter Summary ---
Author Organization [facility] Address [address] [place] [address] Phone Care Team Providers Care Chemical Lab Technician Name Role Phone Belle Vega NP Primary Care Provider + [phone] Nory Jones MD Unavailable [phone] Alexi Nowak MD Primary Care Provider [phone] Alexi Nowak MD Unavailable Don Brown MD Primary Care Provider Encounter Details Date Type Department Care Team (Latest Contact Info) Description 03/27/2018 Ancillary Orders Virtual Department 30 [place] [address] Chapito Quinn, DO [address] [place] [address] [email or web address] Osteoarthritis of spine with myelopathy, unspecified spinal [...] Other degenerative changes as described. POS - [id number] Edited by: Andreina Sheridan on 04/10/2018 12:47 [...] Other degenerative changes as described. POS - [id number] Edited by: Andreina Sheridan on 04/10/2018 12:47 [...] spine greatest at T10- 11. POS - [id number] Edited by: Andreina Sheridan on 04/10/2018 1:37 [...] moderate loss of disc height from T7-8 [id number]. At T7-8, small to medium-sized left paracentral [...] thoracic spine greatest atT10- 11. 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 J[place] Jones [phone] [email or web address] PCP - General Family Medicine 12/18/18 10/19/22 Don Brown MD [address] [place] [phone] PCP - General Family Medicine 10/20/22 Nory Jones MD [address] [place] [address] [email or web address] Insurance Assigned Provider 06/15/1808/16/18 Alexi Nowak MD [address] [place] [address] [address] [place] [phone] [email or web address] Assigned Provider 04/25/19 documented as of this encounter Additional Source Comments The information contained in this document represents components of the legal health record. It is not the complete legal health record.[facility]
--- OUTSIDE RECORDS SUMMARY | 2025-07-07 11:01 | XMS_ITS | Encounter Summary ---
Author Organization [facility] Address [address] [place] [address] Phone Care Team Providers Care Needle Loom Weaver Name Role Phone Alexi Nowak MD Primary Care Provider [phone] Aelxi Nowak MD Unavailable Don Brown MD Primary Care Provider Encounter Details Date Type Department Care Team (Late st Contact Info) Description 05/20/2019 Procedure Pass [address] [place] [address] Social History Tobacco Use Types Packs/Day Years [...] on filedocumented in this encounter Care Teams Needle Loom Weaver Relationship Specialty Start Date End Date Alexi Nowak MD [address] J[place] [phone] [email or web address] PCP - General Family Medicine 12/18/18 10/19/22 Don Brown MD [address] [place] [phone] PCP - General Family Medicine 10/20/22 Alexi Nowak MD [address] [place] [phone] [email or web address] Insurance Assigned Provider 04/25/19 documented as of this encounter Additional Source Comments The information contained in this document represents components of the legal health record. It is not the complete legal health record.[facility]
--- OUTSIDE RECORDS SUMMARY | 2025-07-07 11:01 | XMS_ITS | Encounter Summary ---
Author Organization [facility] Address [address] [place] [address] Phone Care Team Providers Care Business Consult Name Role Phone Belle Vega NP Primary Care Provider [phone] Nory Jones MD Unavailable [phone] Alexi Nowak MD Primary Care Provider [phone] Alexi Nowak MD Unavailable Don Brown MD Primary Care Provider Encounter Details Date Type Department Care Team (Late st Contact Info) Description 05/05/2018 Transcribe Orders [facility] Specimen Processing 30 [place] [address] Manuel Mercer MD 38 [facility] 204, [address] [place] [address] [email or web address] Cervical spondylosis without myelopathy (Primary Dx); Other [...] EDT) WBC 5.72 3.40 - 11.20 K/uL [facility] RBC 4.06(L) 4.50 - 5.50 M/uL [facility] HGB 12.0(L) 13.0 - 17.0 g/dL [facility] HCT 36.4(L) 40.0 - 51.0 % [facility] PLT 340 130 - 400 K/uL [facility] MCV 89.7 79.0 - 98.0 fL [facility] MCH 29.6 27.0 - 34.8 pg [facility] MCHC 33.0 31.5 - 36.0 g/dL [facility] RDW 12.7 10.8 - 14.6 % [facility] MPV 9.5 9.4 - 12.4 fl [facility] NRBC 0.00 /100 WBCs [facility] ABSOLUTE NRBC 0.00 K/uL [facility] Blood 05/05/2018 5:45 AM EDT 05/05/2018 8:48 AM EDT us Manuel Mercer MD LAB BLOOD BKR ORDERABLES Final R esult [address] [address] * (ABNORMAL) Comprehensive metabolic panel (05/05/2018 5:45 AM EDT) SODIUM 141 133 - 146 mmol/L [facility] POTASSIUM 4.5 3.3 - 5.1 mmol/L [facility] CHLORIDE 100 96 - 108 mmol/L [facility] CO2 28 21 - 35 mmol/L [facility] BUN 15 6 - 19 mg/dL [facility] CREATININE 0.80 0.5 - 1.5 mg/dL [facility] GLUCOSE 100(H) 70 - 99 mg/dL [facility] ALBUMIN 3.6(L) 3.9 - 4.8 g/dL [facility] TOTAL PROTEIN 5.8(L) 6.5 - 8.0 g/dL [facility] CALCIUM 9.3 8.4 - 10.3 mg/dL [facility] ALKALINE PHOSPHATASE 55 39 - 117 U/L [facility] TOTAL BILIRUBIN 0.2 0.0 - 1.2 mg/dL [facility] AST 12 0 - 37 U/L [facility] ALT 19 0 - 40 U/L [facility] GLOBULIN 2.2 1 - 4.8 g/dL [facility] EGFR 96 >59 mL/min/1.7 3m2 [facility] Comment:If patient is black, multiply result by 1.159. Estimated glomerular filtration rate calculated using the CKD-EPI equation. ANION GAP 18 10 - 20 mmol/L [facility] Blood 05/05/2018 5:45 AM EDT 05/05/2018 8:48 AM EDT us Manuel Mercer MD LAB BLOOD BKR ORDERABLES Final R esult [facility] [address] [place] [address] documented in this encounter Visit Diagnoses Diagnosis Cervical spondylosis without myelopathy- Primary Other cord compression Other insomnia documented in this encounter Care Teams Business Consult Relationship Specialty Start Date End Date Belle Vega NP PCP - General Family Medicine 03/05/18 12/17/18 Alexi Nowak MD [address] [place] [phone] [email or web address] PCP - General Family Medicine 12/18/18 10/19/22 Don Brown MD [address] [place] [phone] PCP - General Family Medicine 10/20/22 Nory Jones MD [address] [place] [address] [email or web address] Insurance Assigned Provider 06/15/1808/16/18 Alexi Nowak MD [address] [place] [address] [place] [phone] [email or web address] Insurance Assigned Provider 04/25/19 documented as of this encounter Additional Source Comments The information contained in this document represents components of the legal health record. It is not the complete legal health record.[facility]
--- OUTSIDE RECORDS SUMMARY | 2025-07-07 11:01 | XMS_ITS | Encounter Summary ---
Author Organization [facility] Address [address] [place] [address] Phone Care Team Providers Care Mirror Maker Name Role Phone Alexi Nowak MD Primary Care Provider [phone] Don Brown MD Primary Care Provider Encounter Details Date Type Department Care Team (Late st Contact Info) Description 09/27/2022 Procedure Pass [facility], [address] [address] Social History Tobacco Use Types Packs/Day Years [...] on filedocumented in this encounter Care Teams Mirror Maker Relationship Specialty Start Date End Date Alexi Nowak MD 230 [facility] [address] [place] [phone] [email or web address] PCP - General Family Medicine 12/18/18 10/19/22 Don Brown MD 230 [facility] [address] [place] [phone] PCP - General Family Medicine 10/20/22 documented as of this encounter Additional Source Comments The information contained in this document represents components of the legal health record. It is not the complete legal health record.[facility]
--- OUTSIDE RECORDS SUMMARY | 2025-07-07 11:01 | XMS_ITS | Encounter Summary ---
Author Organization [facility] Address [address] [place] [address] Phone Care Team Providers Care Spinning Machine Tender Name Role Phone Belle Vega NP Primary Care Provider + [phone] Nory Jones MD Unavailable [phone] Alexi Nowak MD Primary Care Provider [phone] Alexi Nowak MD Unavailable Don Brown MD Primary Care Provider Encounter Details Date Type Department Care Team (Late st Contact Info) Description 04/11/2018 Procedure Pass [facility], [address] [address] Social History Tobacco Use Types Packs/Day Years [...] on filedocumented in this encounter Care Teams Spinning Machine Tender Relationship Specialty Start Date End Date Belle Vega, FABRIC NORMALIZER PCP - General Family Medicine 03/05/18 12/17/18 Alexi Nowak MD [address] [place] [address] [email or web address] PCP - General Family Medicine 12/18/18 10/19/22 Don Brown MD [address] [place] [address] PCP - General Family Medicine 10/20/22 Nory Jones MD [address] [place] [address] Insurance Assigned Provider 06/15/1808/16/18 Alexi Nowak MD [address] [place] [phone] [email or web address] Insurance Assigned Provider 04/25/19 documented as of this encounter Additional Source Comments The information contained in this document represents components of the legal health record. It is not the complete legal health record.[facility]
--- OUTSIDE RECORDS SUMMARY | 2025-07-07 11:01 | XMS_ITS | Encounter Summary ---
Author Organization [facility] Address [address] [place] [address] Phone Care Team Providers Care Breaker Boss Name Role Phone Belle Vega NP Primary Care Provider + [phone] Alexi Nowak MD Primary Care Provider [phone] Alexi Nowak MD Unavailable Don Brown MD Primary Care Provider Encounter Details Date Type Department Care Team (Late st Contact Info) Description 08/26/2018 Ancillary Orders [facility], X-Ray - [facility] [address] [place] [address] Chapito Quinn, DO [address] [place] [address] Pain Social History Tobacco Use Types Packs/Day [...] pain documented in this encounter Care Teams Breaker Boss Relationship Specialty Start Date End Date Belle Vega NP PCP - General Family Medicine 03/05/18 12/17/18 Alexi Nowak MD [address] [place] [phone] [email or web address] PCP - General Family Medicine 12/18/18 10/19/22 Don Brown MD [address] [place] [phone] PCP - General Family Medicine 10/20/22 Alexi Nowak MD [address] [place] [phone] [email or web address] Insurance Assigned Provider 04/25/19 documented as of this encounter Additional Source Comments The information contained in this document represents components of the legal health record. It is not the complete legal health record.[facility]
--- OUTSIDE RECORDS SUMMARY | 2025-07-07 11:01 | XMS_ITS | Encounter Summary ---
Author Organization [facility] Address [address] [place] [address] Phone Care Team Providers Care Enamel Pulverizer Name Role Phone Belle Vega NP Primary Care Provider [phone] Nory Jones MD Unavailable [phone] Alexi Nowak MD Primary Care Provider [phone] Alexi Nowak MD Unavailable Don Brown MD Primary Care Provider Encounter Details Date Type Department Care Team (Latest Contact Info) Description 05/26/2018 Transcribe Orders [facility] Specimen Processing [address] [place] [address] Manuel Mercer MD 38 [facility] 204, [address] [place] [address] [email or web address] Intervertebral cervical disc disorder with myelopathy, cervical [...] EST) WBC 6.25 3.40 - 11.20 K/uL [facility] RBC 4.47(L) 4.50 - 5.50 M/uL [facility] HGB 12.7(L) 13.0 - 17.0 g/dL [facility] HCT 39.4(L) 40.0 - 51.0 % [facility] PLT 241 130 - 400 K/uL [facility] MCV 88.1 79.0 - 98.0 fL [facility] MCH 28.4 27.0 - 34.8 pg [facility] MCHC 32.2 31.5 - 36.0 g/dL [facility] RDW 12.8 10.8 - 14.6 % [facility] MPV 10.0 9.4 - 12.4 fl [facility] NRBC 0.00 0.00 /100 WBCs [facility] ABSOLUTE NRBC 0.00 0.00 K/uL [facility] Blood 05/26/2018 5:30 AM EST 05/26/2018 8:35 AM EST us Manuel Mercer MD LAB BLOOD BKR ORDERABLES Final R esult Performing Organization Address City/State/[facility] Co de Phone Number [address] [address] * (ABNORMAL) Comprehensive metabolic panel (05/26/2018 5:30 AM EST) SODIUM 141 133 - 146 mmol/L [facility] POTASSIUM 4.3 3.3 - 5.1 mmol/L [facility] CHLORIDE 100 96 - 108 mmol/L [facility] CO2 27 21 - 35 mmol/L [facility] BUN 16 6 - 19 mg/dL [facility] CREATININE 0.70 0.5 - 1.5 mg/dL [facility] GLUCOSE 94 70 - 99 mg/dL [facility] ALBUMIN 3.8(L) 3.9 - 4.8 g/dL [facility] TOTAL PROTEIN 5.9(L) 6.5 - 8.0 g/dL [facility] CALCIUM 9.4 8.4 - 10.3 mg/dL [facility] ALKALINE PHOSPHATASE 57 39 - 117 U/L [facility] TOTAL BILIRUBIN 0.3 0.0 - 1.2 mg/dL [facility] AST 11 0 - 37 U/L [facility] ALT 9 0 - 40 U/L [facility] GLOBULIN 2.1 1 - 4.8 g/dL [facility] EGFR 102 >59 mL/min/1.7 3m2 [facility] Comment:If patient is black, multiply result by 1.159. Estimated glomerular filtration rate calculated using the CKD-EPI equation. ANION GAP 18 10 - 20 mmol/L [facility] Blood 05/26/2018 5:30 AM EST 05/26/2018 8:35 AM EST us Manuel Mercer MD LAB BLOOD BKR ORDERABLES Final R esult Performing Organization Address City/State/[facility] Co de Phone Number [facility] [address] [place] [address] documented in this encounter Visit Diagnoses Diagnosis Intervertebral cervical disc disorder with myelopathy, cervical region- Primary Disease of spinal cord Unspecified disease of spinal cord Gastroesophageal reflux disease without esophagitis Esophageal reflux documented in this encounter Care Teams Enamel Pulverizer Relationship Specialty Start Date End Date Belle Vega NP PCP - General Family Medicine 03/05/18 12/17/18 Alexi Nowak MD 230 [facility] [address] [place] [phone] [email or web address] PCP - General Family Medicine 12/18/18 10/19/22 Don Brown MD 230 [facility] [address] [place] [phone] PCP - General Family Medicine 10/20/22 Nory Jones MD [address] [place] [address] [email or web address] Insurance Assigned Provider 06/15/1808/16/18 Alexi Nowak MD [address] [place] [address] [address] [place] [phone] [email or web address] Insurance Assigned Provider 04/25/19 documented as of this encounter Additional Source Comments The information contained in this document represents components of the legal health record. It is not the complete legal health record.[facility]
--- OUTSIDE RECORDS SUMMARY | 2025-07-07 11:01 | XMS_ITS | Encounter Summary ---
Author Organization [facility] Address [address] [place] [address] Phone Care Team Providers Care Supplier Development Manager Name Role Phone Belle Vega NP Primary Care Provider [phone] Nory Jones MD Unavailable Alexi Nowak MD Primary Care Provider [phone] Alexi Nowak MD Unavailable Don Brown MD Primary Care Provider Encounter Details Date Type Department Care Team (Late st Contact Info) Description 03/27/2018 Procedure Pass [facility], [address] [address] Social History Tobacco Use Types Packs/Day Years [...] on filedocumented in this encounter Care Teams Supplier Development Manager Relationship Specialty Start Date End Date Belle Vega, TAXI DRIVER SUPERVISOR PCP - General Family Medicine 03/05/18 12/17/18 Alexi Nowak MD [address] [place] [address] [email or web address] PCP - General Family Medicine 12/18/18 10/19/22 Don Brown MD [address] [place] [address] PCP - General Family Medicine 10/20/22 Nory Jones MD [address] [place] [address] Insurance Assigned Provider 06/15/1808/16/18 Alexi Nowak MD [address] [place] [phone] [email or web address] Insurance Assigned Provider 04/25/19 documented as of this encounter Additional Source Comments The information contained in this document represents components of the legal health record. It is not the complete legal health record.[facility]
--- OUTSIDE RECORDS SUMMARY | 2025-07-07 11:01 | XMS_ITS | Clinical Summary ---
Author Organization [facility] Address [address] [address] Phone Care Team Providers Care Seasoner Hand Name Role Phone Don Brown MD Primary [...] this topic Medical Devices Implanted Type Area Site Auditor Device Identifier Shelf Expiration Date Model / Serial / Lot Screw Mark 3.5mm Bone Spine Posterior Cervical Ti Oasys Susan Ii Ea - [id number] Implanted:Qty : 6 on 04/24/2018 by Quinton Handley MD at [facility] NODATA Spine Cervical TAVARES SPINE [id number] / / Screw Bone 3.5x12mm Posterior Cervical Oasys Polyaxial Biased Angle Ea - [id number] Implanted:Qty : 2 on 04/24/2018 by Quinton Handley MD at [facility] Spine Cervical TAVARES SPINE [id number] / / Screw Bone 3.5x24mm Posterior Cervical Oasys Polyaxial Biased Angle Ea - [id number] Implanted:Qty : 2 on 04/24/2018 by Quinton Handley MD at [facility] Spine Cervical TAVARES SPINE [id number] / / Screw Bone 3.5x10mm Posterior Cervical Oasys Polyaxial Biased Angle Ea - [id number] Implanted:Qty : 2 on 04/24/2018 by Quinton Handley MD at [facility] Spine Cervical TAVARES SPINE [id number] / / Jamal Bone 3.5x40mm Spine Posterior Cervical Oasys Ti Ea - [id number] Implanted:Qty : 2 on 04/24/2018 by Quinton Handley MD at [facility] Spine Cervical TAVARES SPINE [id number] / / Insurance [facility] MEDICARE PART A & B [facility] MEDICARE REPLACEMENT [place] MED[place] & B [facility] MEDICARE [facility]PL[place] A & B [facility] MEDICARE REPLACEMENT [facility] MED[facility] PART A & B [facility] MEDICARE REPLACEMENT [facility] MEDICARE PART A & B [facility] MEDICARE REPLACEMENT [facility] MEDICARE PART A & B [facility] MEDICARE REPLACEMENT Advance Directives For more information, please contact: [phone] (9AM - 5PM Maryam/[facility], Saturday-Saturday) * Full Code (Confirmed) (Latest [...] Agent (Proxy form on file) Care Teams Seasoner Hand Relationship Specialty Start Date End Date Don Brown MD PCP - General Family Medicine 10/20/22 Additional Source Comments The information contained in this document represents components of the legal health record. It is not the complete legal health record.[facility]
--- OUTSIDE RECORDS SUMMARY | 2025-07-07 11:01 | XMS_ITS | Encounter Summary ---
Author Organization [facility] Address [address] [place] [address] Phone Care Team Providers Care Kohinoor Operator Name Role Phone Belle Vega NP Primary Care Provider + [phone] Nory Jones MD Unavailable [phone] Alexi Nowak MD Primary Care Provider [phone] Alexi Nowak MD Unavailable Don Brown MD Primary Care Provider Encounter Details Date Type Department Care Team (Late st Contact Info) Description 04/11/2018 Ancillary Orders Virtual Department [address] [place] [address] Chapito Quinn, DO [address] [place] [address] [email or web address] Other spondylosis with myelopathy, site unspecified Social [...] 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 POS - [id number] Chapito Quinn DO IMG MR XSPECIALTY Final Resu lt documented in this encounter Visit Diagnoses Diagnosis Other spondylosis with myelopathy, site unspecified Other spondylosis with myelopathy, site unspecified documented in this encounter Care Teams Kohinoor Operator Relationship Specialty Start Date End Date Belle Vega, TALENT PROGRAM MANAGER PCP - General Family Medicine 03/05/18 12/17/18 Alexi Nowak MD [address] [place] [address] [email or web address] PCP - General Family Medicine 12/18/18 10/19/22 Don Brown MD [address] [place] [phone] PCP - General Family Medicine 10/20/22 Nory Jones MD [address] [place] [address] [email or web address] Insurance Assigned Provider 06/15/1808/16/18 Alexi Nowak MD [address] [place] [address] [email or web address] Insurance Assigned Provider 04/25/19 documented as of this encounter Additional Source Comments The information contained in this document represents components of the legal health record. It is not the complete legal health record.[facility]
--- OUTSIDE RECORDS SUMMARY | 2025-07-07 11:01 | XMS_ITS | Encounter Summary ---
Author Organization [facility] Address [address] [place] [address] Phone Care Team Providers Care Insurance Defense Paralegal Name Role Phone Alexi Nowak MD Primary Care Provider [phone] Alexi Nowak MD Unavailable Don Brown MD Primary Care Provider Encounter Details Date Type Department Care Team (Late st Contact Info) Description 05/20/2019 Procedure Pass [facility], [address] [place] [address] Social History Tobacco Use Types Packs/Day Years [...] on filedocumented in this encounter Care Teams Insurance Defense Paralegal Relationship Specialty Start Date End Date Alexi Nowak MD 230 [facility] [address] [place] [phone] [email or web address] PCP - General Family Medicine 12/18/18 10/19/22 Don Brown MD 230 [facility] JANELL Jones [phone] PCP - General Family Medicine 10/20/22 Alexi Nowak MD 230 [facility] [address] [place] [phone] [email or web address] Insurance Assigned Provider 04/25/19 documented as of this encounter Additional Source Comments The information contained in this document represents components of the legal health record. It is not the complete legal health record.[facility]
--- OUTSIDE RECORDS SUMMARY | 2025-07-07 11:01 | XMS_ITS | Encounter Summary ---
Author Organization [facility] Address [address] [place] [address] Phone Care Team Providers Care Chucking And Sawing Machine Operator Name Role Phone Belle Vega NP Primary Care Provider [phone] Nory Jones MD Unavailable [phone] Alexi Nowak MD Primary Care Provider [phone] Alexi Nowak MD Unavailable Don Brown MD Primary Care Provider Encounter Details Date Type Department Care Team (Latest Contact Info) Description 05/19/2018 Transcribe Orders CDH Specimen Processing 30 [place] [address] Manuel Mercer MD 38 [facility] 204, [address] [place] [address] [email or web address] Intervertebral cervical disc disorder with [...] EST) WBC 5.59 3.40 - 11.20 K/uL [facility] RBC 4.36(L) 4.50 - 5.50 M/uL [facility] HGB 12.6(L) 13.0 - 17.0 g/dL [facility] HCT 38.9(L) 40.0 - 51.0 % [facility] PLT 255 130 - 400 K/uL [facility] MCV 89.2 79.0 - 98.0 fL [facility] MCH 28.9 27.0 - 34.8 pg [facility] MCHC 32.4 31.5 - 36.0 g/dL [facility] RDW 12.6 10.8 - 14.6 % [facility] MPV 10.0 9.4 - 12.4 [facility] NRBC 0.00 0.00 /100 WBCs [facility] ABSOLUTE NRBC 0.00 0.00 K/uL [facility] Blood 05/19/2018 5:25 AM EST 05/19/2018 8:47 AM EST us Manuel Mercer MD LAB BLOOD BKR ORDERABLES Final R esult Performing Organization Address City/State/[facility] Co de Phone Number [address] [address] * (ABNORMAL) Comprehensive metabolic panel (05/19/2018 5:25 AM EST) SODIUM 144 133 - 146 mmol/L [facility] POTASSIUM 4.4 3.3 - 5.1 mmol/L [facility] CHLORIDE 105 96 - 108 mmol/L [facility] CO2 28 21 - 35 mmol/L [facility] BUN 18 6 - 19 mg/dL [facility] CREATININE 0.90 0.5 - 1.5 mg/dL [facility] GLUCOSE 87 70 - 99 mg/dL [facility] ALBUMIN 3.5(L) 3.9 - 4.8 g/dL [facility] TOTAL PROTEIN 5.6(L) 6.5 - 8.0 g/dL [facility] CALCIUM 9.0 8.4 - 10.3 mg/dL [facility] ALKALINE PHOSPHATASE 58 39 - 117 U/L [facility] TOTAL BILIRUBIN 0.2 0.0 - 1.2 mg/dL [facility] AST 11 0 - 37 U/L [facility] ALT 12 0 - 40 U/L [facility] GLOBULIN 2.1 1 - 4.8 g/dL [facility] EGFR 92 >59 mL/min/1.7 3m2 [facility] Comment:If patient is black, multiply result by 1.159. Estimated glomerular filtration rate calculated using the CKD-EPI equation. ANION GAP 15 10 - 20 mmol/L [facility] Blood 05/19/2018 5:25 AM EST 05/19/2018 8:47 AM EST us Manuel Mercer MD LAB BLOOD BKR ORDERABLES Final R esult [address] [address] documented in this encounter Visit Diagnoses Diagnosis Intervertebral cervical disc disorder with myelopathy, cervical region- Primary Disease of spinal cord Unspecified disease of spinal cord Gastroesophageal reflux disease, esophagitis presence not specified documented in this encounter Care Teams Chucking And Sawing Machine Operator Relationship Specialty Start Date End Date Belle Vega NP PCP - General Family Medicine 03/05/18 12/17/18 Alexi Nowak MD 230 [facility] [address] [place] [phone] [email or web address] PCP - General Family Medicine 12/18/18 10/19/22 Don Brown MD 230 [facility] [address] [place] [address] PCP - General Family Medicine 10/20/22 Nory Jones MD [address] [place] [address] [email or web address] Insurance Assigned Provider 06/15/1808/16/18 Alexi Nowak MD [address] [place] [address] [address] [place] [address] [email or web address] Insurance Assigned Provider 04/25/19 documented as of this encounter Additional Source Comments The information contained in this document represents components of the legal health record. It is not the complete legal health record.[facility]
--- OUTSIDE RECORDS SUMMARY | 2025-07-07 11:01 | XMS_ITS | Encounter Summary ---
Author Organization [facility] Address [address] [place] [address] Phone Care Team Providers Care Campus Monitor Name Role Phone Belle Vega NP Primary Care Provider [phone] Nory Jones MD Unavailable [phone] Alexi Nowak MD Primary Care Provider [phone] Alexi Nowak MD Unavailable Don Brown MD Primary Care Provider Encounter Details Date Type Department Care Team (Late st Contact Info) Description 04/29/2018 Transcribe Orders [facility] Specimen Processing 30 [place] [address] Manuel Mercer MD 38 [facility] 204, [address] [place] [address] [email or web address] Diagnosis unknown (Primary Dx) Social History Tobacco [...] EDT) WBC 7.30 3.40 - 11.20 K/uL [facility] RBC 4.25(L) 4.50 - 5.50 M/uL [facility] HGB 12.6(L) 13.0 - 17.0 g/dL [facility] HCT 37.6(L) 40.0 - 51.0 % [facility] PLT 240 130 - 400 K/uL [facility] MCV 88.5 79.0 - 98.0 fL [facility] MCH 29.6 27.0 - 34.8 pg [facility] MCHC 33.5 31.5 - 36.0 g/dL [facility] RDW 12.8 10.8 - 14.6 % [facility] MPV 9.9 9.4 - 12.4 fl [facility] NRBC 0.00 /100 WBCs [facility] ABSOLUTE NRBC 0.00 K/uL [facility] Blood 04/29/2018 4:40 AM EDT 04/29/2018 7:11 AM EDT us Manuel Mercer MD LAB BLOOD BKR ORDERABLES Final R esult [address] [id number] * (ABNORMAL) Comprehensive metabolic panel (04/29/2018 4:40 AM EDT) SODIUM 138 133 - 146 mmol/L [facility] POTASSIUM 5.2(H) 3.3 - 5.1 mmol/L [facility] CHLORIDE 97 96 - 108 mmol/L [facility] CO2 30 21 - 35 mmol/L [facility] BUN 15 6 - 19 mg/dL [facility] CREATININE 0.70 0.5 - 1.5 mg/dL [facility] GLUCOSE 118(H) 70 - 99 mg/dL [facility] ALBUMIN 3.6(L) 3.9 - 4.8 g/dL [facility] TOTAL PROTEIN 5.9(L) 6.5 - 8.0 g/dL [facility] CALCIUM 9.7 8.4 - 10.3 mg/dL [facility] ALKALINE PHOSPHATASE 51 39 - 117 U/L [facility] TOTAL BILIRUBIN 0.4 0.0 - 1.2 mg/dL [facility] AST 19 0 - 37 U/L [facility] ALT 24 0 - 40 U/L [facility] GLOBULIN 2.3 1 - 4.8 g/dL [facility] EGFR 102 >59 mL/min/1.7 3m2 [facility] Comment:If patient is black, multiply result by 1.159. Estimated glomerular filtration rate calculated using the CKD-EPI equation. ANION GAP 16 10 - 20 mmol/L [facility] Blood 04/29/2018 4:40 AM EDT 04/29/2018 7:11 AM EDT us Manuel Mercer MD LAB BLOOD BKR ORDERABLES Final R esult [facility] 30 [place] [address] documented in this encounter Visit Diagnoses Diagnosis Diagnosis unknown- Primary documented in this encounter Care Teams Campus Monitor Relationship Specialty Start Date End Date Belle Vega NP PCP - General Family Medicine 03/05/18 12/17/18 Alexi Nowak MD 230 [facility] [address] [place] [address] PCP - General Family Medicine 12/18/18 10/19/22 Don Brown MD 230 [facility] [address] [place] [phone] PCP - General Family Medicine 10/20/22 Nory Jones MD [address] [place] [address] [email or web address] Insurance Assigned Provider 06/15/1808/16/18 Alexi Nowak MD [address] [place] [address] [address] [place] [phone] Insurance Assigned Provider 04/25/19 documented as of this encounter Additional Source Comments The information contained in this document represents components of the legal health record. It is not the complete legal health record.[facility]
--- OUTSIDE RECORDS SUMMARY | 2025-07-07 11:01 | XMS_ITS | Encounter Summary ---
Author Organization [facility] Address [address] [place] [address] Phone Care Team Providers Care Director Of Personnel Name Role Phone Alexi Nowak MD Primary Care Provider [phone] Don Brown MD Primary Care Provider Reason for Referral * MRI/CAT Scan - Closed Specialty Diagnoses / Procedures Referred By Contac t Referred To Contact Radiology Diagnoses Radiculopathy, lumbar region Procedures MRI Lumbar Spine Chapito Quinn DO Phone: tel: fax: mailto:[email or web address] Referral ID Status Reason Start Date Expiration Date Visits Re quested Visits Authorized [id number] Closed 09/27/2022 09/27/2023 1 1 * MRI/CAT Scan - Closed Specialty Diagnoses / Procedures Referred By Contac t Referred To Contact Radiology Diagnoses Cervical disc disorder with myelopathy, cervicothoracic region Procedures MRI Thoracic Spine Chapito Quinn DO Phone: tel: fax: mailto:[email or web address] Referral ID Status Reason Start Date Expiration Date Visits Re quested Visits Authorized [id number] Closed 09/27/2022 09/27/2023 1 1 * MRI/CAT Scan - Closed Specialty Diagnoses / Procedures Referred By Jose Alberto cartagena Referred To Contact Radiology Diagnoses Cervical disc disorder with myelopathy, cervicothoracic region Procedures MRI Cervical Spine Chapito Quinn DO Phone: tel: fax: mailto:[email or web address] Referral ID Status Reason Start Date Expiration Date Visits Re quested Visits Authorized [id number] Closed 09/27/2022 09/27/2023 1 1 Encounter Details Date Type Department Care Team (Latest Contact Info) Description 09/27/2022 Transcribe Orders Virtual Department 30 [place] [address] Chapito Quinn DO [address] [place] [address] [email or web address] Cervical disc disorder with myelopathy, cervicothoracic [...] neuroforaminal stenoses, severe left and moderate right [id number] and moderate at T9-10 and T11-12. T10-11 [...] Straightening of the cervical lordosis. 5 mm [id number]. MARROW: Heterogeneous marrow signal without marrow replacing [...] unspecified documented in this encounter Care Teams Director Of Personnel Relationship Specialty Start Date End Date Alexi Nowak MD 230 [facility] [address] [place] [phone] [email or web address] PCP - General Family Medicine 12/18/18 10/19/22 Don Brown MD 230 [facility] [address] [place] [phone] PCP - General Family Medicine 10/20/22 documented as of this encounter Additional Source Comments The information contained in this document represents components of the legal health record. It is not the complete legal health record.[facility]
--- OUTSIDE RECORDS SUMMARY | 2025-07-07 11:01 | XMS_ITS | Encounter Summary ---
Author Organization [facility] Address [address] [place] [address] Phone Care Team Providers Care Potline Monitor Name Role Phone Belle Vega NP Primary Care Provider [phone] Alexi Nowak MD Primary Care Provider [phone] Alexi Nowak MD Unavailable Don Brown MD Primary Care Provider Encounter Details Date Type Department Care Team (Late st Contact Info) Description 08/26/2018 Ancillary Orders Virtual Department 30 [place] [address] Chapito Quinn, DO [address] [place] [address] [email or web address] Left shoulder pain, unspecified chronicity Social History [...] chronicity documented in this encounter Care Teams Potline Monitor Relationship Specialty Start Date End Date Belle Vega NP PCP - General Family Medicine 03/05/18 12/17/18 Alexi Nowak MD [address] [place] [phone] [email or web address] PCP - General Family Medicine 12/18/18 10/19/22 Don Brown MD [address] [place] [phone] PCP - General Family Medicine 10/20/22 Alexi Nowak MD [address] [place] [phone] [email or web address] Insurance Assigned Provider 04/25/19 documented as of this encounter Additional Source Comments The information contained in this document represents components of the legal health record. It is not the complete legal health record.[facility]
--- OUTSIDE RECORDS SUMMARY | 2025-07-07 11:01 | XMS_ITS | Encounter Summary ---
Author Organization [facility] Address [address] [place] [address] Phone Care Team Providers Care Center Rep Name Role Phone Belle Vega NP Primary Care Provider [phone] Alexi Nowak MD Primary Care Provider [phone] Alexi Nowak MD Unavailable Don Brown MD Primary Care Provider Encounter Details Date Type Department Care Team (Late st Contact Info) Description 08/25/2018 Ancillary Orders Virtual Department 30 [place], [place] [phone] Quinton Handley MD 30 [place] [address] [email or web address] Fusion of spine, cervical region Social History [...] region documented in this encounter Care Teams Center Rep Relationship Specialty Start Date End Date Belle Vega, [employer] PCP - General Family Medicine 03/05/18 12/17/18 Alexi Nowak MD [address] [place] [phone] [email or web address] PCP - General Family Medicine 12/18/18 10/19/22 Don Brown MD [address] [place] [phone] PCP - General Family Medicine 10/20/22 Alexi Nowak MD [address] [place] [phone] [email or web address] Assigned Provider 04/25/19 documented as of this encounter Additional Source Comments The information contained in this document represents components of the legal health record. It is not the complete legal health record.[facility]
--- OUTSIDE RECORDS SUMMARY | 2025-07-07 11:01 | XMS_ITS | Encounter Summary ---
Author Organization [facility] Address [address] [place] [address] Phone Care Team Providers Care Combat Systems Engineer Name Role Phone Belle Vega NP Primary Care Provider [phone] Nory Jones MD Unavailable [phone] Alexi Nowak MD Primary Care Provider [phone] Alexi Nowak MD Unavailable Don Brown MD Primary Care Provider Encounter Details Date Type Department Care Team (Late st Contact Info) Description 03/27/2018 Procedure Pass [facility], [address] [address] Social History Tobacco Use Types Packs/Day Years [...] on filedocumented in this encounter Care Teams Combat Systems Engineer Relationship Specialty Start Date End Date Belle Vega, AIR CONDITIONER INSTALLER HELPER PCP - General Family Medicine 03/05/18 12/17/18 Alexi Nowak MD [address] [place] [address] [email or web address] PCP - General Family Medicine 12/18/18 10/19/22 Don Brown MD [address] [place] [address] PCP - General Family Medicine 10/20/22 Nory Jones MD [address] [place] [phone] Insurance Assigned Provider 06/15/1808/16/18 Alexi Nowak MD [address] [place] [address] [email or web address] Insurance Assigned Provider 04/25/19 documented as of this encounter Additional Source Comments The information contained in this document represents components of the legal health record. It is not the complete legal health record.[facility]
--- OUTSIDE RECORDS SUMMARY | 2025-07-07 11:01 | XMS_ITS | Encounter Summary ---
Author Organization [facility] Address [address] [place] [address] Phone Care Team Providers Care Pulvi Mixer Operator Name Role Phone Belle Vega NP Primary Care Provider [phone] Nory Jones MD Unavailable [phone] Alexi Nowak MD Primary Care Provider Alexi Nowak MD Unavailable Don Brown MD Primary Care Provider Encounter Details Date Type Department Care Team (Latest Contact Info) Description 06/02/2018 Transcribe Orders [facility] Specimen Processing 30 [place] [address] Manuel Mercer MD 38 [facility] 204, [address] [place] [address] [email or web address] Intervertebral [...] EST) WBC 5.37 3.40 - 11.20 K/uL [facility] RBC 4.47(L) 4.50 - 5.50 M/uL [facility] HGB 13.0 13.0 - 17.0 g/dL [facility] HCT 39.2(L) 40.0 - 51.0 % [facility] PLT 259 130 - 400 K/uL [facility] MCV 87.7 79.0 - 98.0 fL [facility] MCH 29.1 27.0 - 34.8 pg [facility] MCHC 33.2 31.5 - 36.0 g/dL [facility] RDW 12.9 10.8 - 14.6 % [facility] MPV 10.2 9.4 - 12.4 fl [facility] NRBC 0.00 0.00 /100 WBCs [facility] ABSOLUTE NRBC 0.00 0.00 K/uL [facility] Blood 06/02/2018 6:10 AM EST 06/02/2018 8:05 AM EST us Manuel Mercer MD LAB BLOOD BKR ORDERABLES Final R esult Performing Organization Address City/State/[facility] Co de Phone Number [address] [address] * (ABNORMAL) Comprehensive metabolic panel (06/02/2018 6:10 AM EST) SODIUM 141 133 - 146 mmol/L [facility] POTASSIUM 4.5 3.3 - 5.1 mmol/L [facility] CHLORIDE 101 96 - 108 mmol/L [facility] CO2 27 21 - 35 mmol/L [facility] BUN 21(H) 6 - 19 mg/dL [facility] CREATININE 0.70 0.5 - 1.5 mg/dL [facility] GLUCOSE 95 70 - 99 mg/dL [facility] ALBUMIN 4.0 3.9 - 4.8 g/dL [facility] TOTAL PROTEIN 6.4(L) 6.5 - 8.0 g/dL [facility] CALCIUM 9.6 8.4 - 10.3 mg/dL [facility] ALKALINE PHOSPHATASE 61 39 - 117 U/L [facility] TOTAL BILIRUBIN 0.3 0.0 - 1.2 mg/dL [facility] AST 14 0 - 37 U/L [facility] ALT 11 0 - 40 U/L [facility] GLOBULIN 2.4 1 - 4.8 g/dL [facility] EGFR 102 >59 mL/min/1.7 3m2 [facility] Comment:If patient is black, multiply result by 1.159. Estimated glomerular filtration rate calculated using the CKD-EPI equation. ANION GAP 18 10 - 20 mmol/L [facility] Blood 06/02/2018 6:10 AM EST 06/02/2018 8:05 AM EST us Manuel Mercer MD LAB BLOOD BKR ORDERABLES Final R esult Performing Organization Address City/State/[facility] Co de Phone Number [facility] [address] [place] [address] documented in this encounter Visit Diagnoses Diagnosis Intervertebral cervical disc disorder with myelopathy, cervical region- Primary Disease of spinal cord Unspecified disease of spinal cord Gastroesophageal reflux disease without esophagitis Esophageal reflux documented in this encounter Care Teams Pulvi Mixer Operator Relationship Specialty Start Date End Date Belle Vega NP PCP - General Family Medicine 03/05/18 12/17/18 Alexi Nowak MD 230 [facility] [address] [place] [phone] [email or web address] PCP - General Family Medicine 12/18/18 10/19/22 Don Brown MD 230 [facility] [address] [place] [phone] PCP - General Family Medicine 10/20/22 Nory Jones MD [address] [place] [address] [email or web address] Insurance Assigned Provider 06/15/1808/16/18 Alexi Nowak MD [address] [place] [address] [address] [place] [phone] [email or web address] Insurance Assigned Provider 04/25/19 documented as of this encounter Additional Source Comments The information contained in this document represents components of the legal health record. It is not the complete legal health record.[facility]
--- OUTSIDE RECORDS SUMMARY | 2025-07-07 11:01 | XMS_ITS | Encounter Summary ---
Author Organization [facility] Address [address] [place] [address] Phone Care Team Providers Care Cartridge Loading Operator Name Role Phone Belle Vega NP Primary Care Provider [phone] Nory Jones MD Unavailable [phone] Alexi Nowak MD Primary Care Provider [phone] Alexi Nowak MD Unavailable Don Brown MD Primary Care Provider Encounter Details Date Type Department Care Team (Late st Contact Info) Description 05/12/2018 Transcribe Orders [facility] Specimen Processing [address] [place] [address] Manuel Mercer MD 38 [facility] [address], [address] [place] [address] [email or web address] Cervical disc disorder with myelopathy of pojmoqod-yaagehr-neu al region (Primary Dx) Social History Tobacco [...] EDT) WBC 6.08 3.40 - 11.20 K/uL [facility] RBC 4.36(L) 4.50 - 5.50 M/uL [facility] HGB 12.6(L) 13.0 - 17.0 g/dL [facility] HCT 38.9(L) 40.0 - 51.0 % [facility] PLT 378 130 - 400 K/uL [facility] MCV 89.2 79.0 - 98.0 fL [facility] MCH 28.9 27.0 - 34.8 pg [facility] MCHC 32.4 31.5 - 36.0 g/dL [facility] RDW 12.6 10.8 - 14.6 % [facility] MPV 9.4 9.4 - 12.4 fl [facility] NRBC 0.00 /100 WBCs [facility] ABSOLUTE NRBC 0.00 K/uL [facility] Blood 05/12/2018 5:45 AM EDT 05/12/2018 9:58 AM EDT us Manuel Mercer MD LAB BLOOD BKR ORDERABLES Final R esult Performing Organization Address City/State/[facility] Co de Phone Number [address] [address] * (ABNORMAL) Comprehensive metabolic panel (05/12/2018 5:45 AM EDT) SODIUM 142 133 - 146 mmol/L [facility] POTASSIUM 4.4 3.3 - 5.1 mmol/L [facility] CHLORIDE 101 96 - 108 mmol/L [facility] CO2 27 21 - 35 mmol/L [facility] BUN 17 6 - 19 mg/dL [facility] CREATININE 0.90 0.5 - 1.5 mg/dL [facility] GLUCOSE 96 70 - 99 mg/dL [facility] ALBUMIN 3.6(L) 3.9 - 4.8 g/dL [facility] TOTAL PROTEIN 5.7(L) 6.5 - 8.0 g/dL [facility] CALCIUM 9.4 8.4 - 10.3 mg/dL [facility] ALKALINE PHOSPHATASE 60 39 - 117 U/L [facility] TOTAL BILIRUBIN 0.2 0.0 - 1.2 mg/dL [facility] AST 11 0 - 37 U/L [facility] ALT 10 0 - 40 U/L [facility] GLOBULIN 2.1 1 - 4.8 g/dL [facility] EGFR 92 >59 mL/min/1.7 3m2 [facility] Comment:If patient is black, multiply result by 1.159. Estimated glomerular filtration rate calculated using the CKD-EPI equation. ANION GAP 18 10 - 20 mmol/L [facility] Blood 05/12/2018 5:45 AM EDT 05/12/2018 9:58 AM EDT us Manuel Mercer MD LAB BLOOD BKR ORDERABLES Final R esult [facility] [address] [place] [address] documented in this encounter Visit Diagnoses Diagnosis Cervical disc disorder with myelopathy of kliapxxp-ywvdzrg-jofwi region- Primary documented in this encounter Care Teams Cartridge Loading Operator Relationship Specialty Start Date End Date Belle Vega NP PCP - General Family Medicine 03/05/18 12/17/18 Alexi Nowak MD [address] JANE[place] Jones [phone] [email or web address] PCP - General Family Medicine 12/18/18 10/19/22 Don Brown MD [address] [place] [phone] PCP - General Family Medicine 10/20/22 Nory Jones MD [address] [place] [address] [email or web address] Insurance Assigned Provider 06/15/1808/16/18 Alexi Nowak MD [address] [place] [phone] [email or web address] Insurance Assigned Provider 04/25/19 documented as of this encounter Additional Source Comments The information contained in this document represents components of the legal health record. It is not the complete legal health record.[facility]
--- OUTSIDE RECORDS SUMMARY | 2025-07-07 11:01 | XMS_ITS | Encounter Summary ---
Author Organization [facility] Address [address] [place] [address] Phone Care Team Providers Care Mill Oiler Name Role Phone Belle Vega NP Primary Care Provider [phone] Nory Jones MD Unavailable [phone] Alexi Nowak MD Primary Care Provider [phone] Alexi Nowak MD Unavailable Don Brown MD Primary Care Provider Encounter Details Date Type Department Care Team (Latest Contact Info) Description 06/09/2018 Transcribe Orders [facility] Specimen Processing 30 [place] [address] Manuel Mercer MD 38 [facility] 204, [address] [place] [address] [email or web address] Intervertebral cervical disc disorder with myelopathy, cervical [...] EST) WBC 6.28 3.40 - 11.20 K/uL [facility] RBC 4.65 4.50 - 5.50 M/uL [facility] HGB 13.3 13.0 - 17.0 g/dL [facility] HCT 41.4 40.0 - 51.0 % [facility] PLT 309 130 - 400 K/uL [facility] MCV 89.0 79.0 - 98.0 fL [facility] MCH 28.6 27.0 - 34.8 pg [facility] MCHC 32.1 31.5 - 36.0 g/dL [facility] RDW 13.2 10.8 - 14.6 % [facility] MPV 9.9 9.4 - 12.4 fl [facility] NRBC 0.00 0.00 /100 WBCs [facility] ABSOLUTE NRBC 0.00 0.00 K/uL [facility] Blood 06/09/2018 5:30 AM EST 06/09/2018 8:08 AM EST us Manuel Mercer MD LAB BLOOD BKR ORDERABLES Final R esult Performing Organization Address City/State/[facility] Co de Phone Number [address] [phone] * (ABNORMAL) Comprehensive metabolic panel (06/09/2018 5:30 AM EST) SODIUM 142 133 - 146 mmol/L [facility] POTASSIUM 4.3 3.3 - 5.1 mmol/L [facility] CHLORIDE 100 96 - 108 mmol/L [facility] CO2 27 21 - 35 mmol/L [facility] BUN 21(H) 6 - 19 mg/dL [facility] CREATININE 0.80 0.5 - 1.5 mg/dL [facility] GLUCOSE 83 70 - 99 mg/dL [facility] ALBUMIN 4.2 3.9 - 4.8 g/dL [facility] TOTAL PROTEIN 6.5 6.5 - 8.0 g/dL [facility] CALCIUM 9.7 8.4 - 10.3 mg/dL [facility] ALKALINE PHOSPHATASE 55 39 - 117 U/L [facility] TOTAL BILIRUBIN 0.6 0.0 - 1.2 mg/dL [facility] AST 13 0 - 37 U/L [facility] ALT 10 0 - 40 U/L [facility] GLOBULIN 2.3 1 - 4.8 g/dL [facility] EGFR 96 >59 mL/min/1.7 3m2 [facility] Comment:If patient is black, multiply result by 1.159. Estimated glomerular filtration rate calculated using the CKD-EPI equation. ANION GAP 19 10 - 20 mmol/L [facility] Blood 06/09/2018 5:30 AM EST 06/09/2018 8:08 AM EST us Manuel Mercer MD LAB BLOOD BKR ORDERABLES Final R esult Performing Organization Address City/State/[facility] Co de Phone Number [address] [phone] documented in this encounter Visit Diagnoses Diagnosis Intervertebral cervical disc disorder with myelopathy, cervical region- Primary Disease of spinal cord Unspecified disease of spinal cord documented in this encounter Care Teams Mill Oiler Relationship Specialty Start Date End Date Belle Vega NP PCP - General Family Medicine 03/05/18 12/17/18 Alexi Nowak MD [address] [place] [address] [email or web address] PCP - General Family Medicine 12/18/18 10/19/22 Don Brown MD 230 [facility] [address] [place] [address] PCP - General Family Medicine 10/20/22 Nory Jones MD [address] [place] [address] [email or web address] Insurance Assigned Provider 06/15/1808/16/18 Alexi Nowak MD [address] [place] [phone] [email or web address] Insurance Assigned Provider 04/25/19 documented as of this encounter Additional Source Comments The information contained in this document represents components of the legal health record. It is not the complete legal health record.[facility]
--- OUTSIDE RECORDS SUMMARY | 2025-07-07 11:01 | XMS_ITS | Encounter Summary ---
Author Organization [facility] Address [address] [place] [address] Phone Care Team Providers Care Healthcare Receptionist Name Role Phone Alexi Nowak MD Primary Care Provider [phone] Alexi Nowak MD Unavailable Don Brown MD Primary Care Provider Reason for Referral * MRI/CAT Scan - Closed Specialty Diagnoses / Procedures Referred By Contac t Referred To Contact Radiology Diagnoses Cervical disc disorder with myelopathy of cervicothoracic region Procedures MRI Thoracic Spine Chapito Quinn DO Phone: tel: fax: mailto:[email or web address] Referral ID Status Reason Start Date Expiration Date Visits Re quested Visits Authorized [id number] Closed 05/20/2019 05/20/2020 1 1 * MRI/CAT Scan - Closed Specialty Diagnoses / Procedures Referred By Contac t Referred To Contact Radiology Diagnoses Cervical disc disorder with myelopathy of cervicothoracic region Procedures MRI Cervical Spine Chapito Quinn DO Phone: tel: fax: mailto:[email or web address] Referral ID Status Reason Start Date Expiration Date Visits Re quested Visits Authorized [id number] Closed 05/20/2019 05/20/2020 1 1 Encounter Details Date Type Department Care Team (Latest Contact Info) Description 05/20/2019 Ancillary Orders Virtual Department [address] [place] [address] Chapito Quinn DO [address] [place] [address] [email or web address] Cervical disc disorder with myelopathy of cervicothoracic [...] disc ridge complex at T10-11. POS - [id number] Edited by: Lilibeth Palmer on 05/28/2019 3:37 [...] finding of clear concern detected in the qftaj-ys-daen. Procedure Note Tanika Kim MD - 05/28/2019 [...] tissue finding of clear concern detected in vnxckbio-pg-nwyf. IMPRESSION: No additional areas of spinal stenosis. Minimally progressive disc ridgecomplex at T10-11. POS - [id number] Edited by: Lilibeth Palmer on 05/28/2019 3:37 [...] spurring and disc ridge complex. POS - [id number] Edited by: Lilibeth Palmer on 05/28/2019 3:50 [...] findings of clear concern detected in the pwelb-zg-jzia. Procedure Note Tanika Kim MD - 05/28/2019 [...] findings of clear concern detected in the gtcsn-op-kdaq. IMPRESSION: Relief of the severe spinal stenosis and cord compression previouslypresent at C7-T1 with marked improvement in cord signal abnormality fromT1 to T3. Only minimal residual cord signal abnormality now seen at upperendplate T1 level. No marked cord atrophy. Slightly increased mass effecton the right at the C4-5 level with slightly increasing uncovertebralspurring and disc ridge complex. POS - [id number] Edited by: Lilibeth Palmer on 05/28/2019 3:50 PM us Chapito Quinn DO IMG MR XSPECIALTY Final Resu lt documented in this encounter Visit Diagnoses Diagnosis Cervical disc disorder with myelopathy of cervicothoracic region Cervical disc disorder with myelopathy of cervicothoracic region documented in this encounter Care Teams Healthcare Receptionist Relationship Specialty Start Date End Date Alexi Nowak MD [address] [place] [phone] [email or web address] PCP - General Family Medicine 12/18/18 10/19/22 Don Brown MD [address] [place] [phone] PCP - General Family Medicine 10/20/22 Alexi Nowak MD [address] [place] [phone] [email or web address] Insurance Assigned Provider 04/25/19 documented as of this encounter Additional Source Comments The information contained in this document represents components of the legal health record. It is not the complete legal health record.[facility]
--- OUTSIDE RECORDS SUMMARY | 2025-07-07 11:01 | XMS_ITS | Encounter Summary ---
Author Organization [facility] Address [address] [place] [address] Phone Care Team Providers Care University Registrar Name Role Phone Belle Vega NP Primary Care Provider [phone] Nory Jones MD Unavailable [phone] Alexi Nowak MD Primary Care Provider [phone] Alexi Nowak MD Unavailable Don Brown MD Primary Care Provider Encounter Details Date Type Department Care Team (Late st Contact Info) Description 04/24/2018 Procedure Pass [place] Admitting Dept - [facility] Department [address] [place] [address] Social History Tobacco Use Types Packs/Day Years [...] on filedocumented in this encounter Care Teams University Registrar Relationship Specialty Start Date End Date Belle Vega, HIMS CODER PCP - General Family Medicine 03/05/18 12/17/18 Alexi Nowak MD [address] [place] [phone] [email or web address] PCP - General Family Medicine 12/18/18 10/19/22 Don Brown MD [address] [place] [address] PCP - General Family Medicine 10/20/22 Nory Jones MD [address] [place] [phone] Insurance Assigned Provider 06/15/1808/16/18 Alexi Nowak MD [address] [place] [address] [email or web address] Insurance Assigned Provider 04/25/19 documented as of this encounter Additional Source Comments The information contained in this document represents components of the legal health record. It is not the complete legal health record.[facility]
--- OUTSIDE RECORDS SUMMARY | 2025-07-07 11:02 | XMS_ITS | Encounter Summary ---
Author Organization [facility] Address [address] [address] Phone Care Team Providers Care Bicycle Repairer Name Role Phone Alexi Nowak MD Primary Care Provider [phone] Alexi Nowak MD Unavailable Don Brown MD Primary Care Provider Reason for Referral * MRI/CAT Scan - Closed Specialty Diagnoses / Procedures Referred By Contac t Referred To Contact Radiology Diagnoses Spinal stenosis of lumbar region with neurogenic claudication Procedures MRI Lumbar Spine Chapito Quinn DO Phone: tel: fax: mailto:[email or web address] Referral ID Status Reason Start Date Expiration Date Visits Re quested Visits Authorized [id number] Closed 01/20/2020 01/19/2021 1 1 Encounter Details Date Type Department Care Team (Latest Contact Info) Description 01/20/2020 Ancillary Orders Virtual Department [address] [place] [address] Chapito Quinn DO [address] [place] [address] [email or web address] Spinal stenosis of lumbar region with neurogenic [...] claudication documented in this encounter Care Teams Bicycle Repairer Relationship Specialty Start Date End Date Alexi Nowak MD [address] [place] [phone] [email or web address] PCP - General Family Medicine 12/18/18 10/19/22 Don Brown MD [address] [place] [phone] PCP - General Family Medicine 10/20/22 Alexi Nowak MD [address] [place] [phone] [email or web address] Insurance Assigned Provider 04/25/19 documented as of this encounter Additional Source Comments The information contained in this document represents components of the legal health record. It is not the complete legal health record.[facility]
--- OUTSIDE RECORDS SUMMARY | 2025-07-07 11:02 | XMS_ITS | Encounter Summary ---
Author Organization [facility] Address [address] [place] [address] Phone Care Team Providers Care [employer] Name Role Phone Belle Vega NP Primary Care Provider [phone] Nory Jones MD Unavailable Alexi Nowak MD Primary Care Provider [phone] Alexi Nowak MD Unavailable Don Brown MD Primary Care Provider Encounter Details Date Type Department Care Team (Late st Contact Info) Description 04/23/2018 Procedure Pass [facility], Ct Scan - [address] [address] Social History Tobacco Use Types Packs/Day Years [...] on filedocumented in this encounter Care Teams [employer] Relationship Specialty Start Date End Date Belle Vega, VALET PARKING ATTENDANT PCP - General Family Medicine 03/05/18 12/17/18 Alexi Nowak MD [address] [place] [phone] [email or web address] PCP - General Family Medicine 12/18/18 10/19/22 Don Brown MD [address] [place] [phone] PCP - General Family Medicine 10/20/22 Nory Jones MD [address] [place] [address] [email or web address] Insurance Assigned Provider 06/15/1808/16/18 Alexi Nowak MD [address] [place] [address] [email or web address] Insurance Assigned Provider 04/25/19 documented as of this encounter Additional Source Comments The information contained in this document represents components of the legal health record. It is not the complete legal health record.[facility]
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
[2025-07-07 12:10] VITALS: BP 128/62; PULSE 84; RESP 14; TEMP 37; O2SAT 98; BMI 25.7
== END 2025-07-07 13:06 | disposition home or self-care (01) ==
LOC: HO.HMCFM 10:55
PROVIDERS: PCP Family Medicine; Visit Provider Family Medicine
DX: Z00.00 Encounter for general adult medical examination without abnormal findings (principal); F11.90 Opioid use, unspecified, uncomplicated; M54.9 Dorsalgia, unspecified; G89.29 Other chronic pain; I65.29 Occlusion and stenosis of unspecified carotid artery; R61 Generalized hyperhidrosis; R63.4 Abnormal weight loss; Z12.11 Encounter for screening for malignant neoplasm of colon

== ENCOUNTER → 2025-07-07 10:55 | Outpatient (BNVA) | payer MEDICARE, SELFPAY | PROVIDERS: PCP Family Medicine; Visit Provider Family Medicine | DX: Z00.00 Encounter for general adult medical examination without abnormal findings (principal); F11.90 Opioid use, unspecified, uncomplicated; R61 Generalized hyperhidrosis; M54.9 Dorsalgia, unspecified; G89.29 Other chronic pain; I65.23 Occlusion and stenosis of bilateral carotid arteries; R63.4 Abnormal weight loss; I10 Essential (primary) hypertension; Z12.11 Encounter for screening for malignant neoplasm of colon; Z12.5 Encounter for screening for malignant neoplasm of prostate | CPT/HCPCS: 99397 ==